=== PATIENT | male | born 1945 | race Caucasian/White ===

== ENCOUNTER 2019-02-08 18:47 | Inpatient (IN) | payer MEDICARE, OTHER ==
--- NOTE | 2019-02-08 19:36 | ED ---
GI/ HPI - HPI Summary HPI Summary: Pt is a 73 y/o M presenting to the ED with a chief complaint of black stools. He states he has occasional phlebitis in his L leg, so he frequently wears TEDS. A few weeks ago he was shivering/shaking, and the next day his L leg was edematous and painful. He sometimes takes Aleve to help the pain, but he is also on Eliquis, and thinks they may have interacted and caused these black stools. He states his stools are pure black. He denies pain or taking any Pepto Bismol or Iron supplements. - History of Current Complaint Chief Complaint: EDGIBleed Time Seen by Provider: 02/08/19 19:11 Stated Complaint: GI BLEED PER EMS Hx Obtained From: Patient Onset/Duration: Started Days Ago, Still Present Timing: Constant, Lasting Days Severity: Mild Current Severity: Mild Pain Intensity: 3 Location of Pain: Diffuse Associated Signs and Symptoms: Positive: Black Tarry Stool, Melena - edema & pain in L leg, shaking/shivering Aggravating Factor(s): Nothing Alleviating Factor(s): Nothing - Allergy/Home Medications Allergies/Adverse Reactions: Allergies Allergy/AdvReac Type Severity Reaction Status Date / Time Latex, Natural Rubber Allergy Rash Verified 02/08/19 19:00 ANTIBIOTIC, POSSIBLY Allergy Diarrhea Uncoded 02/08/19 19:00 CEPHALEXIN Home Medications: Home Medications Apixaban* [Eliquis*] 5 mg PO BID 02/08/19 [History Confirmed 02/08/19] Benazepril HCl 80 mg PO DAILY 02/08/19 [History Confirmed 02/08/19] Furosemide TAB* [Lasix TAB*] 80 mg PO QAM 02/08/19 [History Confirmed 02/08/19] Ibuprofen TAB* [Motrin TAB* 400 MG] 400 mg PO Q6H PRN 02/08/19 [History Confirmed 02/08/19] Multivitamins/Minerals TAB* [Theragran/minerals TAB*] 1 tab PO DAILY 02/08/19 [ History Confirmed 02/08/19] Triamcinolone 0.1% CREAM(NF) [Kenalog Cream 0.1%(NF)] 1 applic TOPICAL BID 02/08 [History Confirmed 02/08/19] PMH/Surg Hx/FS Hx/Imm Hx Previously Healthy: Yes Endocrine/Hematology History: Reports: Hx Thyroid Disease Denies: Hx Diabetes Cardiovascular History: Reports: Hx Hypertension Respiratory History: Denies: Hx Asthma, Hx Chronic Obstructive Pulmonary Disease (COPD) GI History: Denies: Hx Ulcer - Surgical History Surgery Procedure, Year, and Place: RLE VEIN SURGERY 2013, bilat vascular leg surgery, RIGHT HIP - GAMMA NAIL Infectious Disease History: No Infectious Disease History: Denies: Hx Clostridium Difficile, Hx Hepatitis, Hx Human Immunodeficiency Virus (HIV), Hx of Known/Suspected MRSA, Hx Shingles, Hx Tuberculosis, Traveled Outside the [place] in Last 30 Days - Family History Known Family History: Negative: Diabetes - Social History Alcohol Use: None Hx Substance Use: No Substance Use Type: Reports: None Hx Tobacco Use: Yes Smoking Status (MU): Former Smoker Review of Systems Positive: Other - shaking/shivering Positive: Other - black stool Positive: Myalgia, Edema All Other Systems Reviewed And Are Negative: Yes Physical Exam - Summary Physical Exam Summary: Constitutional: Well-developed, Well-nourished, Alert. (-) Distressed Skin: Warm, Dry HENT: Normocephalic; Atraumatic Eyes: Conjunctiva normal Neck: Musculoskeletal ROM normal neck. (-) JVD, (-) Stridor, (-) Tracheal deviation Cardio: Rhythm regular, rate normal, Heart sounds normal; Intact distal pulses; Radial pulses are 2+ and symmetric. (-) Murmur Pulmonary/Chest wall: Effort normal. (-) Respiratory distress, (-) Wheezes, (-) Rales Abd: Soft, (-) tenderness, (-) Distension, (-) Guarding, (-) Rebound Musculoskeletal: (-) Edema Lymph: (-) Cervical adenopathy Neuro: Alert, Oriented x3 Psych: Mood and affect Normal Rectal: Hematochezia Triage Information Reviewed: Yes Vital Signs On Initial Exam: Initial Vitals Temp Pulse Resp BP Pulse Ox 98.3 F 100 24 118/78 100 02/08/19 18:55 02/08/19 18:55 02/08/19 18:55 02/08/19 18:55 02/08/19 18:55 Vital Signs Reviewed: Yes Procedures - Sedation Patient Received Moderate/Deep Sedation with Procedure: No Diagnostics - Vital Signs Vital Signs Temp Pulse Resp BP Pulse Ox 02/08/19 19:00 92 30 99 02/08/19 18:56 94 26 118/78 100 02/08/19 18:55 98.3 F 100 20 118/78 100 - Laboratory Result Diagrams: 02/08/19 19:26 02/08/19 19:26 Lab Statement: Any lab studies that have been ordered have been reviewed, and results considered in the medical decision making process. - EKG 1930 Cardiac Rate: Other Rate - afib 98bpm EKG Rhythm: Atrial Fibrillation ST Segment: Normal Ectopy: None Summary of EKG Findings: EKG at 1930 shows atrial fibrillation at 98bpm with RBBB and no STEMI. ED physician has reviewed and interpreted this report. GIGU Course/Dx - Course Course Of Treatment: Patient is here with GI bleed while being on eliquist. Patient has been taking ibuprofen which could predispose him to peptic ulcer disease. Patient had bright red blood per rectum on exam but was clinically stable here. Patient had a hemoglobin of 5.7 and was given 2 units of blood. Patient was given PCC to reverse his eliquist. GI was counseled that here in the recommended ICU admission with scoping in the morning. Patient was admitted to the hospitalist. - Diagnoses Provider Diagnoses: GI bleed, Anticoagulated, Anemia, CHF (congestive heart failure) - Critical Care Time Critical Care Time: 30-74 min - 60min Discharge ED - Sign-Out/Discharge Documenting (check all that apply): Patient Departure - Discharge Plan Condition: Stable Disposition: ADMITTED TO [facility] Referrals: Dequan Kerr MD [Primary Care Provider] - - Billing Disposition and Condition Condition: STABLE Disposition: Admitted to [facility] - Attestation Statements Document Initiated by Charan: Yes Documenting Scribe: Carla Huynh Provider For Whom Charan is Documenting (Include Credential): Yomi Stovall MD. Scribe Attestation: Carla Locke scribed for Yomi Stovall MD. on 02/08/19 at 2051. Scribe Documentation Reviewed: Yes Provider Attestation: The documentation as recorded by the Carla van accurately reflects the service I personally performed and the decisions made by , Yomi Stovall MD. Status of Scribe Document: Viewed Consult Consult: 1947 - I spoke with Dr. Duff who recommends giving the pt 2 units of PCC and admitting to the ICU. 2016 - Dr. Gaspar accepts the pt to [facility].
[2019-02-08] MEDS ORDERED: Pantoprazole* 80 mg IN NS 80 MG/250 ML BAG IV ONE (19:41)
[2019-02-08 19:45] LABS: INR 1.61 (0.82-1.09)
[2019-02-08 19:45] LABS: ABS Lymphocytes 0.8 10^3/ul (1.0-4.8); ABS Monocytes 0.8 10^3/ul (0-0.8); ABS Neutrophils 12.3 10^3/ul (1.5-7.7); Eosinophil % 0.1 %; Hematocrit 17 % (42-52); Hemoglobin 5.7 g/dL (14.0-18.0); Lymphocyte % 5.4 %; Mean Corpuscular HGB Conc 33 g/dL (31-36); Mean Corpuscular Hemoglobin 30 pg (27-31); Mean Corpuscular Volume 89 fL (80-94); Mean Platelet Volume 6.5 fL (7.4-10.4); Platelet Count 311 10^3/uL (150-450); Red Blood Count 1.91 10^6 /uL (4.18-5.48); Red Cell Distribution Width 14 % (10-15); White Blood Count 13.9 10^3/uL (3.5-10.8)
[2019-02-08 19:57] LABS: Troponin I 0.03 ng/mL (<0.04)
[2019-02-08 20:05] LABS: Albumin 2.6 g/dL (3.2-5.2); EGFR African American 114.3 (>60); EGFR Non-African American 94.5 (>60); Globulin 2.5 g/dL (2-4); Total Bilirubin 0.3 mg/dL (0.2-1.0); Total Protein 5.1 g/dL (6.4-8.9)
[2019-02-08 20:06] LABS: Potassium 5.6 mmol/L (3.5-5.0)
[2019-02-08 20:15] LABS: Polychromasia 1+
[2019-02-08] MEDS ORDERED: Pantoprazole IV* 40 MG IV ONE (20:21)
[2019-02-09] MEDS: NS 0.9% 1000 ML** 1,000 ML IV SCH ×2 (00:20→15:07)
--- NOTE | 2019-02-09 01:19 | HP ---
CC: Dr. Yahir Duff; Dr. Dequan Kerr * ADMISSION HISTORY AND PHYSICAL: DATE OF ADMISSION: 02/08/19 CHIEF COMPLAINT: Dark stools. 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 He stated that he had 1 episode of vomiting today, but just had the food, but no blood. He did have a diagnosis of thrombophlebitis about 3 weeks ago and has been having increased doses of Aleve and ibuprofen as needed along with the Eliquis that he takes for his AFib. He, otherwise offers no chest pain, no shortness of breath, no vision disturbances, no fever or chills. Other than the 1 episode of vomiting, he currently denies any nausea. PAST MEDICAL HISTORY: As mentioned: 1. Hypothyroidism. 2. Hypertension. 3. AFib, on Eliquis. 4. Congestive heart failure, which he states has normal ejection fraction based on a recent echocardiogram. He also stated that he had a cardiac workup including a stress test, which was done within the last month, which was also normal. He was told that all 4 heart valves are bad and needs surgery, but he refused any surgical intervention. PAST SURGICAL HISTORY: Includes: 1. Right hip gamma nail, which subsequently had broken and there is plan to do some surgical correction. 2. He has got multiple vascular surgeries for venous insufficiency, but still has lower extremity edema for which he uses compression stockings. He has never had a colonoscopy as he states that he never had any family history of colon cancer, but he is okay with having a colonoscopy during this admission. HOME MEDICATIONS: The patient is currently on: 1. Amlodipine 5 mg oral daily. 2. Eliquis 5 mg p.o. b.i.d. 3. Benazepril 80 mg oral daily. 4. Furosemide 80 mg every morning. 5. Ibuprofen 400 mg every 6 hours as needed for pain. 6. Synthroid 50 mcg daily every morning. 7. Multivitamin 1 tablet oral daily every morning. 8. Potassium chloride 40 mEq twice a day. 9. Kenalog cream topical daily to the left leg. 10. Triamterene/hydrochlorothiazide 37.5/25 mg oral daily. ALLERGIES: The patient is allergic to LATEX and CEPHALEXIN. FAMILY HISTORY: Noncontributory to his age. SOCIAL HISTORY: He quit smoking in 1993. Prior to that, had 4 pack per day smoking since age 17. Denies any alcohol or drug use. Is currently living with his . Is otherwise full code. REVIEW OF SYSTEMS: A 14-point review of systems did not reveal any new information other than what is mentioned in the HPI. PHYSICAL EXAMINATION GENERAL: The patient is awake, alert, and oriented x3, did not appear to be in any acute respiratory distress. VITAL SIGNS: Temperature was 98.6, BP was noted to be low as documented of 95/ 52 which improved with IV hydration, heart rate was noted to be 71, respiration rate 20, saturating 100% on room air. HEAD AND NECK: Atraumatic, normocephalic. Bilateral pupils are reactive. There is some evidence of early cataracts. Oral mucosa was dry. Neck: Supple. No jugular venous distention. LUNGS: Clear to auscultation bilaterally. No wheezing, rhonchi, or rales. HEART: S1, S2. Regular rate and rhythm with systolic murmur. ABDOMEN: Obese, soft, nontender, nondistended. EXTREMITIES: There is bilateral lower extremity edema for which he uses compression stockings, but still has persistent edema even about the thigh which was 3+ up to his thigh. DIAGNOSTIC STUDIES/LAB DATA: Labs: CBC shows severe anemia with hemoglobin of 5.7, elevated white count of 13.9, platelet was normal. Coagulation profile revealed INR elevated at 1.61. Comprehensive metabolic panel shows hyponatremia with sodium of 127, potassium minimally elevated at 5.6, bicarb decreased at 20, BUN elevated at 72, creatinine normal at 0.8. LFTs show albumin decreased at 2.6. EKG showed AFib at 98 beats per minute with intraventricular conduction delay with right bundle-branch block. There is no old EKG to compare. IMPRESSION: This is a 73-year-old gentleman with hypertension; atrial fibrillation, on Eliquis and thrombophlebitis, taking multiple pain medications , here due to symptomatic anemia, likely secondary to GI bleed. ASSESSMENT AND PLAN: 1. Symptomatic anemia secondary to GI bleed due to use of both Eliquis on top of NSAIDs. For now, we will monitor the patient closely in the ICU. The patient is already ordered for 2 units in the ER and GI has been consulted by the ER physician who agrees with current management including addition of Protonix drip. We will change it to Protonix IV b.i.d. in the morning. We will keep the patient n.p.o. for possible EGD versus colonoscopy in the morning based on GI recommendations. 2. Hyponatremia. Seems to be a severe drop. The patient already had received multiple bouts of IV fluids in the ER given his history of congestive heart failure. We will lower the rate of IV fluids administration and repeat BMP and CBC posttransfusion to check improvement over his values. His last BMP was performed as an outpatient yesterday, which showed a sodium of 138. 3. Prerenal azotemia secondary to GI bleed, likely upper. 4. Hyperkalemia. Likely due to oral potassium supplementation. We will repeat BMP and check on that. 5. History of hypertension. Currently, normotensive to low normal blood pressure. We will hold all BP medications. 6. History of atrial fibrillation. We will hold his Eliquis due to his GI bleed. 7. History of congestive heart failure. Currently, just has lower extremity edema, which could be from venous insufficiency that he does have. No abnormal lung sounds suggestive of congestive heart failure. 8. History of hypothyroidism. Restart levothyroxine. 9. DVT prophylaxis. The patient was receiving Eliquis, but we will hold off any Lovenox at this point due to his GI bleeding and SCDs would be contraindicated given his severe lower extremity edema. Once GI bleed has resolved, we can consider starting the patient back on his home dose of Eliquis , which would cover for his DVT prophylaxis as well. 10. Code status. The patient agrees with full code status. [id number]/[facility] #: [id number] [facility]
[2019-02-09] MEDS: Triamcinolone 0.5% OINT * 15 GM TUBE TOPICAL SCH ×3 (04:56→20:39)
[2019-02-09 05:16] LABS: ABS Basophils 0.1 10^3/ul (0-0.2); ABS Eosinophils 0.1 10^3/ul (0-0.6); ABS Lymphocytes 1.2 10^3/ul (1.0-4.8); Eosinophil % 1.3 %; Hematocrit 18 % (42-52); Hemoglobin 6.3 g/dL (14.0-18.0); Lymphocyte % 10.9 %; Mean Corpuscular HGB Conc 34 g/dL (31-36); Mean Corpuscular Hemoglobin 30 pg (27-31); Mean Corpuscular Volume 88 fL (80-94); Mean Platelet Volume 6.8 fL (7.4-10.4); Platelet Count 236 10^3/uL (150-450); Red Blood Count 2.08 10^6 /uL (4.18-5.48); Red Cell Distribution Width 14 % (10-15); White Blood Count 11.4 10^3/uL (3.5-10.8)
[2019-02-09 05:29] LABS: BUN/Creatinine Ratio 85.1 (8-20); Calcium 8.1 mg/dL (8.6-10.3); EGFR African American 103.8 (>60); EGFR Non-African American 85.8 (>60)
[2019-02-09] MEDS ORDERED: Furosemide IV* 10 MG/ML VIAL (40 MG) IV SLOW PU ONE (05:48)
[2019-02-09] MEDS: Levothyroxine TAB* 50 MCG TAB PO SCH (06:21)
[2019-02-09] MEDS: Pantoprazole IV* 40 MG IV SCH ×2 (06:21→18:02)
[2019-02-09] MEDS: Multivitamins/Minerals TAB PO SCH ×2 (08:27→08:28)
[2019-02-09 11:29] LABS: Hematocrit 22 % (42-52); Hemoglobin 7.4 g/dL (14.0-18.0); Mean Corpuscular HGB Conc 34 g/dL (31-36); Mean Corpuscular Hemoglobin 30 pg (27-31); Mean Corpuscular Volume 88 fL (80-94); Mean Platelet Volume 6.9 fL (7.4-10.4); Platelet Count 241 10^3/uL (150-450); Red Blood Count 2.46 10^6 /uL (4.18-5.48); Red Cell Distribution Width 15 % (10-15); White Blood Count 10.8 10^3/uL (3.5-10.8)
[2019-02-09 11:45] LABS: BUN/Creatinine Ratio 77.8 (8-20); Calcium 8.3 mg/dL (8.6-10.3); EGFR African American 99.8 (>60); EGFR Non-African American 82.5 (>60); Magnesium 2.3 mg/dL (1.9-2.7); Potassium 4.7 mmol/L (3.5-5.0)
[2019-02-09 11:56] LABS: ABS Eosinophils 0.1 10^3/ul (0-0.6); ABS Lymphocytes 0.9 10^3/ul (1.0-4.8); ABS Monocytes 0.9 10^3/ul (0-0.8); ABS Neutrophils 8.8 10^3/ul (1.5-7.7); Eosinophil % 1.2 %; Lymphocyte % 8.3 %
--- NOTE | 2019-02-09 15:59 | PN ---
Subjective Date of Service: 02/09/19 Interval History: Admitted overnight. s/p 3 u pRBC with Hgb now 7.4. Patient reports weakness has resolved. No longer with melena. Denies SOB or feeling cold. States his LE edema is near baseline, with LLE worse than right since recent infection, which did not respond to outpatient antibiotics. Denies PND, orthopnea. Denies fevers, chills, nightsweats. Objective Active Medications: Sodium Chloride (Ns 0.9% 1000 Ml) 1,000 mls @ 75 mls/hr IV PER RATE [facility] Last Admin: 02/09/19 15:07 Dose: 75 mls/hr Levothyroxine Sodium (Synthroid Tab*) 50 mcg PO 0600 [facility] Last Admin: 02/09/19 06:21 Dose: 50 mcg Multivitamins/Minerals (Theragran/Minerals Tab*) 1 tab PO DAILY [facility] Last Admin: 02/09/19 08:28 Dose: Not Given Pantoprazole Sodium (Protonix Iv*) 40 mg IV Q12H [facility] Last Admin: 02/09/19 06:21 Dose: 40 mg Triamcinolone Acetonide (Triamcinolone 0.5% Oint *) 1 applic TOPICAL BID [facility] Last Admin: 02/09/19 08:27 Dose: 1 applic Vital Signs - 8 hr 02/09/19 02/09/19 02/09/19 08:00 08:04 08:05 Temperature 98.2 F Pulse Rate 83 80 Respiratory 19 29 Rate Blood Pressure (mmHg) O2 Sat by Pulse 100 85 Oximetry 02/09/19 02/09/19 02/09/19 08:06 08:15 08:22 Temperature Pulse Rate 79 80 76 Respiratory 23 23 21 Rate Blood Pressure 106/47 96/60 112/50 (mmHg) O2 Sat by Pulse 100 97 100 Oximetry 02/09/19 02/09/19 02/09/19 08:30 08:45 09:00 Temperature Pulse Rate 78 72 83 Respiratory 17 16 23 Rate Blood Pressure 116/50 92/56 (mmHg) O2 Sat by Pulse 88 96 90 Oximetry 02/09/19 02/09/19 02/09/19 09:01 09:16 09:30 Temperature Pulse Rate 69 Respiratory 18 22 16 Rate Blood Pressure 104/61 131/64 104/59 (mmHg) O2 Sat by Pulse 97 Oximetry 02/09/19 02/09/19 02/09/19 09:45 10:00 10:15 Temperature Pulse Rate 71 80 66 Respiratory 17 22 14 Rate Blood Pressure 109/62 109/57 107/56 (mmHg) O2 Sat by Pulse 96 100 100 Oximetry 02/09/19 02/09/19 02/09/19 10:30 10:45 10:59 Temperature Pulse Rate 68 72 76 Respiratory 21 22 17 Rate Blood Pressure 105/52 105/58 97/50 (mmHg) O2 Sat by Pulse 98 96 100 Oximetry 02/09/19 02/09/19 02/09/19 11:00 11:09 11:15 Temperature 98.1 F Pulse Rate 68 70 Respiratory 20 23 Rate Blood Pressure 97/64 107/57 (mmHg) O2 Sat by Pulse 95 100 Oximetry 02/09/19 02/09/19 02/09/19 11:30 11:45 12:00 Temperature Pulse Rate 68 63 64 Respiratory 19 16 16 Rate Blood Pressure 103/57 99/51 126/59 (mmHg) O2 Sat by Pulse 98 99 94 Oximetry 02/09/19 02/09/19 02/09/19 12:16 12:30 12:45 Temperature Pulse Rate 66 64 64 Respiratory 20 17 14 Rate Blood Pressure 134/56 91/54 93/49 (mmHg) O2 Sat by Pulse 100 99 93 Oximetry 02/09/19 15:12 Temperature 99.2 F Pulse Rate Respiratory Rate Blood Pressure (mmHg) O2 Sat by Pulse Oximetry Oxygen Devices in Use Now: None Appearance: wel appearing pale man in NAD, alert and interactive Eyes: No Scleral Icterus Ears/Nose/Mouth/Throat: Clear Oropharnyx, Mucous Membranes Moist Neck: NL Appearance and Movements; NL JVP, Trachea Midline Respiratory: Symmetrical Chest Expansion and Respiratory Effort, Clear to Auscultation Cardiovascular: - - irreg irreg Abdominal: NL Sounds; No Tenderness; No Distention Extremities: - - 3+ pitting edema over LLE and 2+ over RLE, LLE with tender erythema but no skin breakdown or oozing Result Diagrams: 02/09/19 11:10 02/09/19 11:10 Microbiology and Other Data: Microbiology 02/09/19 00:25 Nasal Screen MRSA (PCR) - Final Nasal Mrsa Not Detected 02/08/19 20:30 Stool Occult Blood (MANGO) - Final Stool Assess/Plan/Problems-Billing Assessment: 73M with afib on Eliquis, HFpEF, HTN, hypothyroidism, obesity, presents with 2 days of black stools associated with decrease UOP and lightheadedness, found with severe anemia requiring blood transfusion. - Patient Problems (1) GI bleed due to NSAIDs Comment: Likely UGIB. Taking daily naproxen while on apixaban. Melena for 2 days with hypovolemia. Hgb 5.7 -> 7.4 after 3 u pRBC. Received PCC in the ER. - holding apixaban - NO NSAIDS - appreciate GI input - going for EGD - on pantoprazole IV q12h (2) Atrial fibrillation Comment: - holding AC in setting of bleed, will defer to GI for ability to restart - not on rate/rhythm control (3) Cellulitis Comment: h/o recent outpatient treatment for thrombophlebitis without improvement, now with erythematous tender skin. No open wounds. No MRSA risk factors but recently failed oral treatment with meds not covering for community- MRSA. - will start on IV clindamycin 600mg q 8h (4) Heart failure with preserved ejection fraction Comment: per patient. - will restart furosemide if without further bleeding, as he received significant volume from blood transfusion and is markedly overloaded on exam, is currently denying SOB/orthopnea (5) Hypertension Comment: - holding HCTZ, amlodipine, and benazepril in setting of bleed
[2019-02-09] MEDS ORDERED: fentaNYL* 50 MCG/ML 2 ML VIAL (100 MCG VIAL) ONE (16:06)
[2019-02-09] MEDS ORDERED: Midazolam* 1 MG/ML 10 ML VIAL (10 MG) ONE (16:06)
[2019-02-09 16:49] LABS: C Reactive Protein 13.42 mg/L (<8.01)
[2019-02-09] MEDS ORDERED: PEG 3000 GI LAVAGE* 1 GALLON PO ONE (17:18)
[2019-02-09] MEDS: Clindamycin 600 MG/D5W BAG(*) 600 MG/50 ML BAG IV SCH (18:02)
[2019-02-09 18:37] LABS: Hematocrit 21 % (42-52); Hemoglobin 7.1 g/dL (14.0-18.0); Mean Corpuscular HGB Conc 35 g/dL (31-36); Mean Corpuscular Hemoglobin 31 pg (27-31); Mean Corpuscular Volume 88 fL (80-94); Mean Platelet Volume 6.8 fL (7.4-10.4); Platelet Count 227 10^3/uL (150-450); Red Blood Count 2.32 10^6 /uL (4.18-5.48); Red Cell Distribution Width 15 % (10-15); White Blood Count 8.9 10^3/uL (3.5-10.8)
[2019-02-09] MEDS: Acetaminophen TAB* 325 MG PO PRN (22:11)
--- NOTE | 2019-02-09 22:20 | CONS ---
CC: Wen Arauz MD * GASTROENTEROLOGY CONSULT REPORT: DATE OF CONSULT: 02/09/19 REQUESTING PROVIDER: Wen Arauz MD. REASON FOR CONSULT: Melena and anemia. HISTORY OF PRESENT ILLNESS: Mr. Curran is a 73-year-old gentleman with a history of AFib on Eliquis, heart failure with normal ejection fraction, hypertension, hypothyroidism, and lymphedema, who is admitted with significant anemia and melena. Mr. Curran was in usual state of health until a few weeks ago when he was diagnosed with thrombophlebitis. He has been using Aleve 1 pill twice a day since this time for pain management. This is in addition to his typical Eliquis. He had multiple episodes of black semiformed stools on Thursday. He says there was some dark red blood seen mixed in with the stool as well. No bowel movements since Thursday evening. Reported some nausea and 1 episode of vomiting on Thursday. There was no coffee- ground or blood in the emesis. Denies any significant abdominal pain. Admitted with hematocrit of 17 and hemoglobin of 5.7. Since admission, the patient has received 3 units of blood with an increase in his hemoglobin to 7.4. No bowel movements since admission. The patient denies any specific symptoms at the time of interview. The patient has never had a colonoscopy before. No family history of colon cancer or colon polyps. PAST MEDICAL HISTORY: 1. AFib, on Eliquis. 2. Hypertension. 3. Hypothyroidism. 4. Congestive heart failure with normal ejection fraction. 5. Lymphedema. PAST SURGICAL HISTORY: 1. Right hip surgery. 2. Multiple vascular surgeries for venous insufficiency. HOME MEDICATIONS: 1. Amlodipine 5 mg daily. 2. Eliquis 5 mg twice daily. 3. Benazepril 80 mg daily. 4. Furosemide 80 mg every morning. 5. Ibuprofen as needed. 6. Synthroid 50 mcg daily. 7. Multivitamin daily. 8. Potassium chloride 40 mEq twice daily. 9. Kenalog cream daily. 10. Triamterene/hydrochlorothiazide 37.5/25 daily. ALLERGIES: KEFLEX. FAMILY HISTORY: No known GI or liver disease. SOCIAL HISTORY: Former smoker. No alcohol or drug use. Lives with his . REVIEW OF SYSTEMS: A 12 point review of systems is negative except as mentioned above. PHYSICAL EXAM: Vital Signs: Afebrile, heart rate in the 70s, blood pressure 113/55. General: Pleasant appearing elderly gentleman. No acute distress. HEENT: Mucous membranes moist. Cardiovascular: Irregularly irregular rhythm. Lungs: Clear to auscultation. Breathing comfortably. Abdomen: Obese. Soft, nontender, nondistended. Extremities: Bilateral lower extremity edema, which is fairly significant. DIAGNOSTIC STUDIES/LAB DATA: Labs reviewed. White count 13.9 on admission, now down to 8.9. hemoglobin 5.7 on admission, now 7.1. hematocrit 17 on admission and now 21. platelet count normal. MCV 89. INR 1.61 on admission. Sodium 127, now 131. BUN 72 with a creatinine of 0.8. LFTs normal. Albumin 2.6. CRP is 13.42. Imaging: No available imaging. IMPRESSION AND RECOMMENDATION: Mr. Curran is a 73-year-old gentleman with atrial fibrillation on Eliquis, heart failure with preserved ejection fraction, hypothyroidism, hypertension, and recent daily NSAID use, who presents with acute anemia and black and bloody stools several days ago. The patient is hemodynamically stable. Anemia is quite impressive, although reassuringly he has not had continued drop in the hematocrit during monitoring. No further overt bleeding (or bowel movements) since admission. Presentation most suggestive of an upper GI bleed given the description of melena as well as the elevated BUN. Differential for sources of bleeding is broad, particularly in the setting of anticoagulation. However, PUD is higher on differential given NSAID use. Small intestines and lower GI source can also be considered given some red blood seen in the stool. Patient has not had colonoscopy before, which raises possibility of large polyp or mass. - IV PPI drip. - Continue to monitor CBC every 6-8 hours. Transfuse to maintain hemoglobin above 7. - NPO. We will plan for EGD today. - Continue to hold Eliquis. - Avoid NSAIDs. Thank you very much for this consult. GI will continue to follow along. [id number]/[facility] #: [id number] [facility]
--- NOTE | 2019-02-09 22:47 | PRO ---
CC: Dr. Wen Arauz * DATE OF PROCEDURE: 02/09/19 - ROOM #ICU-04 REFERRING PROVIDER: Wen Arauz MD. PROCEDURE: EGD with biopsy. INDICATION: The patient presented to the ED with acute anemia and melena and bloody stools. Hemoglobin was less than 6 on arrival. The hemoglobin now is 7.4 after 3 units. No melena or rectal bleeding since arrival. Hemodynamically stable. MEDICATIONS GIVEN: Midazolam 7 mg IV, Fentanyl 50 mcg IV. DESCRIPTION OF PROCEDURE: Full disclosure of risks was reviewed with the patient as detailed on the consent form. The patient was placed in the left lateral decubitus position and monitored with continuous pulse oximetry, capnography, interval blood pressure monitoring, and direct observation. A bite -block was placed between the patient's teeth. An adult gastroscope was then inserted into the patient's mouth and advanced down the esophagus, into the stomach, and into the distal duodenum. Findings and interventions are described below. FINDINGS: Esophagus was a tubular structure without rings or strictures. GE junction occurred at approximately 37 cm. Z-line was mildly irregular with small erosion. No severe esophagitis. No varices. Scope was then advanced into the stomach. Stomach was examined in the forward and retroflexed views. There was yellowish fluid in the stomach. No fresh or old blood. Extensive cleaning and washing performed. Adequate views of the mucosa were obtained. No significant erythema, erosions or ulcers. No AVMs. No bleeding source identified in the stomach. The scope was then advanced into the duodenum to at least the third, if not fourth, portion. There was nodular erythema in the duodenal bulb with a tiny erosion. Tanner bilious fluid. No fresh or old blood. No AVMs. Scope was then withdrawn back into the esophagus. Small biopsy bite obtained from irregular Z-line to evaluate for evidence of intestinal metaplasia. This biopsy site bled briskly for a few seconds before stopping spontaneously. The decision was made to hold off on biopsying more extensively. Scope was withdrawn from the patient. The patient tolerated the procedure well and was recovered in the GI recovery area. IMPRESSION: 1. Complete upper endoscopy to distal duodenum. 2. Mildly irregular Z-line. 3. Mild esophagitis with a small erosion at the GE junction. 4. Nodular erythema in the duodenal bulb with a tiny erosion. FOLLOWUP: 1. Await path. 2. I do not feel that the tiny erosions in the esophagus and duodenum are the source of the patient's significant anemia and GI bleed. There is no fresh or old blood. No likely bleeding source identified. At this point, I would recommend prepping the patient for a colonoscopy. Would give clears and GoLYTELY 4 L prep. NPO after midnight. Colonoscopy tomorrow. 2. Continue to monitor CBC every 6 to 8 hours. 3. Continue to hold Eliquis. 4. Would continue IV PPI at least once a day, if not twice daily, given the fact that there were two small erosions seen on exam. Thank you very much for this consult. GI will continue to follow. [id number]/[facility] #: [id number] KRYSTINA
[2019-02-09 22:56] LABS: Hematocrit 22 % (42-52); Hemoglobin 7.5 g/dL (14.0-18.0)
[2019-02-10] MEDS: Clindamycin 600 MG/D5W BAG(*) 600 MG/50 ML BAG IV SCH ×3 (00:01→17:11)
[2019-02-10] MEDS: NS 0.9% 1000 ML** 1,000 ML IV SCH ×2 (02:00→17:12)
[2019-02-10] MEDS: Levothyroxine TAB* 50 MCG TAB PO SCH (05:53)
[2019-02-10] MEDS: Pantoprazole IV* 40 MG IV SCH ×2 (05:54→17:11)
[2019-02-10] MEDS ORDERED: NS 0.9% IV ONE (06:00)
[2019-02-10] MEDS ORDERED: Furosemide IV* 10 MG/ML 10 ML VIAL (100 MG) IV ONE (06:00)
[2019-02-10] MEDS ORDERED: FUROSEMIDE IV ONE (06:00)
[2019-02-10] MEDS: Acetaminophen TAB* 325 MG PO PRN ×2 (06:26→17:40)
[2019-02-10 06:37] LABS: Calcium 8.1 mg/dL (8.6-10.3); EGFR African American 114.3 (>60); EGFR Non-African American 94.5 (>60); Magnesium 2.3 mg/dL (1.9-2.7)
[2019-02-10 06:38] LABS: Hematocrit 19 % (42-52); Hemoglobin 6.8 g/dL (14.0-18.0); Mean Corpuscular HGB Conc 35 g/dL (31-36); Mean Corpuscular Hemoglobin 31 pg (27-31); Mean Corpuscular Volume 88 fL (80-94); Mean Platelet Volume 6.8 fL (7.4-10.4); Platelet Count 220 10^3/uL (150-450); Red Blood Count 2.19 10^6 /uL (4.18-5.48); Red Cell Distribution Width 14 % (10-15); White Blood Count 7.6 10^3/uL (3.5-10.8)
--- NOTE | 2019-02-10 07:27 | PN ---
Subjective Date of Service: 02/10/19 Interval History: Started bowel prep last night, for C-scope planned today. Had copious "burgundy " liquid stools overnight. Hgb 6.8 this morning. Holding off on diuresis in setting of bleed, and as pt has no respiratory symptoms (so urgency is low), but will monitor volume status closely given significant LE edema and need for another transfusion. Pt reports significant improvement in LLE pain and redness. Denies SOB, chills, fatigue. Hasn't tried walking. Objective Active Medications: Acetaminophen (Tylenol Tab*) 650 mg PO Q4H PRN PRN Reason: PAIN - MILD Last Admin: 02/10/19 06:26 Dose: 650 mg Clindamycin HCl/Dextrose (Cleocin 600 Mg/50 Ml(*)) 600 mg in 50 mls @ 100 mls/ hr IV Q8H [facility] Last Admin: 02/10/19 00:01 Dose: 100 mls/hr Sodium Chloride (Ns 0.9% 1000 Ml) 1,000 mls @ 75 mls/hr IV PER RATE [facility] Last Admin: 02/10/19 02:00 Dose: 75 mls/hr Lactobacillus Rhamnosus (Lactobacillus Acidophilus*) 1 tab PO DAILY [facility] Levothyroxine Sodium (Synthroid Tab*) 50 mcg PO 0600 [facility] Last Admin: 02/10/19 05:53 Dose: 50 mcg Multivitamins/Minerals (Theragran/Minerals Tab*) 1 tab PO DAILY [facility] Last Admin: 02/09/19 08:28 Dose: Not Given Pantoprazole Sodium (Protonix Iv*) 40 mg IV Q12H [facility] Last Admin: 02/10/19 05:54 Dose: 40 mg Triamcinolone Acetonide (Triamcinolone 0.5% Oint *) 1 applic TOPICAL BID [facility] Last Admin: 02/09/19 20:39 Dose: 1 applic Vital Signs - 8 hr 02/09/19 02/09/19 02/09/19 23:31 23:41 23:43 Temperature 98.3 F Pulse Rate 81 Respiratory 25 25 Rate Blood Pressure 118/74 (mmHg) O2 Sat by Pulse 78 Oximetry 02/10/19 02/10/19 02/10/19 00:00 00:14 00:30 Temperature Pulse Rate 77 68 69 Respiratory 18 14 21 Rate Blood Pressure 103/56 108/56 (mmHg) O2 Sat by Pulse 98 97 100 Oximetry 02/10/19 02/10/19 02/10/19 01:00 01:30 01:52 Temperature Pulse Rate 73 62 67 Respiratory 19 14 12 Rate Blood Pressure 93/52 93/45 88/44 (mmHg) O2 Sat by Pulse 100 100 100 Oximetry 02/10/19 02/10/19 02/10/19 01:53 02:00 02:30 Temperature Pulse Rate 65 63 Respiratory 14 15 16 Rate Blood Pressure 100/42 96/45 (mmHg) O2 Sat by Pulse 100 100 Oximetry 02/10/19 02/10/19 02/10/19 03:00 03:18 03:30 Temperature 97.2 F Pulse Rate 61 63 Respiratory 14 14 Rate Blood Pressure 86/43 88/45 (mmHg) O2 Sat by Pulse 95 96 Oximetry 02/10/19 02/10/19 02/10/19 04:00 04:15 04:30 Temperature Pulse Rate 58 56 Respiratory 15 18 14 Rate Blood Pressure 102/46 85/44 (mmHg) O2 Sat by Pulse 100 97 Oximetry 02/10/19 02/10/19 02/10/19 05:00 05:30 06:00 Temperature Pulse Rate 65 63 69 Respiratory 15 17 18 Rate Blood Pressure 110/54 112/50 101/57 (mmHg) O2 Sat by Pulse 100 98 100 Oximetry 02/10/19 02/10/19 06:30 07:00 Temperature Pulse Rate 69 63 Respiratory 20 16 Rate Blood Pressure 108/52 100/48 (mmHg) O2 Sat by Pulse 97 100 Oximetry Oxygen Devices in Use Now: None Appearance: well appearing man in NAD, alert and interactive Eyes: No Scleral Icterus Ears/Nose/Mouth/Throat: Clear Oropharnyx, Mucous Membranes Moist Neck: NL Appearance and Movements; NL JVP, Trachea Midline Respiratory: Symmetrical Chest Expansion and Respiratory Effort, Clear to Auscultation Cardiovascular: - - irreg irreg Abdominal: NL Sounds; No Tenderness; No Distention, No Hepatosplenomegaly Extremities: - - 3+ edema to knees, LLE with significantly improved erythema - now darker purple, less tender, less hot Neurological: Alert and Oriented x 3 Result Diagrams: 02/10/19 17:30 02/10/19 06:00 Microbiology and Other Data: Microbiology 02/09/19 00:25 Nasal Screen MRSA (PCR) - Final Nasal Mrsa Not Detected 02/08/19 20:30 Stool Occult Blood (MANGO) - Final Stool Assess/Plan/Problems-Billing Assessment: 73M with afib on Eliquis, HFpEF, HTN, hypothyroidism, obesity, presents with 2 days of black stools associated with decrease UOP and lightheadedness, found with severe anemia requiring blood transfusion. - Patient Problems (1) GI bleed due to NSAIDs Comment: Taking daily naproxen while on apixaban. Melena for 2 days with hypovolemia. Hgb 5.7 -> 7.4 after 3 u pRBC. Received PCC in the ER. - holding apixaban; NO NSAIDS - appreciate GI input - EGD without definite cause, going for c-scope today - on pantoprazole IV q12h - monitor CBC and transfuse for Hgb < 7 (2) Atrial fibrillation Comment: CHADSVaSC 3, which indicates 3.2% ischemic stroke rate per year. - holding AC in setting of bleed, will defer to GI for ability to restart - not on rate/rhythm control (3) Cellulitis Comment: h/o recent outpatient treatment for thrombophlebitis without improvement, now with erythematous tender skin. No open wounds. No MRSA risk factors but recently failed oral treatment with meds not covering for community- MRSA. - will start on IV clindamycin 600mg q8h (02/09 - ) (4) Heart failure with preserved ejection fraction Comment: per patient. - will restart furosemide if without further bleeding, as he received significant volume from blood transfusion and is markedly overloaded on exam - currently denying SOB/orthopnea (5) Hypertension Comment: - holding HCTZ, amlodipine, and benazepril in setting of bleed
[2019-02-10] MEDS: Triamcinolone 0.5% OINT * 15 GM TUBE TOPICAL SCH ×2 (08:22→21:54)
[2019-02-10] MEDS: Lactobacillus Acidophilus* 1 TAB PO SCH (08:22)
[2019-02-10] MEDS: Multivitamins/Minerals TAB PO SCH (08:22)
[2019-02-10] MEDS ORDERED: fentaNYL* 50 MCG/ML 2 ML VIAL (100 MCG VIAL) ONE (14:24)
[2019-02-10] MEDS ORDERED: Midazolam* 1 MG/ML 10 ML VIAL (10 MG) ONE (14:25)
--- NOTE | 2019-02-10 15:25 | PN ---
Progress Note - Progress Note Date of Service: 02/10/19 Note: GI Colonoscopy note Colon to TI x 15cm No fresh or old blood. Mod Left Diverticulosis. No polyps, AVMs or lesions Rec: No family history of CRC. No recall for colon needed unless symptoms ? Diverticular bleed, but no clear source identified. Given valvular heart disease could consider outpatient capsule for AVMs (Neftaly), OP follow up/ scheduling Advance diet as tolerated Elevated risk for anticoagulation, but if has high [id number] score would restart, if low would consider withholding. Discussed bleeding could happen again, avoid NSAIDs Yahir Duff DO 02/10/19 [id number]
[2019-02-10 17:43] LABS: Hematocrit 24 % (42-52); Mean Corpuscular HGB Conc 34 g/dL (31-36); Mean Corpuscular Hemoglobin 30 pg (27-31); Mean Corpuscular Volume 88 fL (80-94); Mean Platelet Volume 6.6 fL (7.4-10.4); Platelet Count 255 10^3/uL (150-450); Red Blood Count 2.66 10^6 /uL (4.18-5.48); Red Cell Distribution Width 15 % (10-15); White Blood Count 7.9 10^3/uL (3.5-10.8)
--- NOTE | 2019-02-10 19:45 | PN ---
Hospitalist Progress Note Date of Service: 02/10/19 Discussed with patient the benefit of anticoagulation (stroke prevention with CHADSVASC of 3), vs risk (recent GI bleed). [place] decision made to proceed with anticoagulation, as pt comfortable with risk of bleeding and believes that this was from his use of Aleve, which he will strictly avoid in the future. Decision made to trial AC with Lovenox, which has a shorter half-life than apixaban. If no bleeding for over 24 hours, can DC on oral AC. Pt prefers this plan.
[2019-02-10] MEDS ORDERED: Enoxaparin(*) 150 MG/ML 1 ML SYRINGE SUBCUT ONE (20:45)
--- NOTE | 2019-02-10 21:28 | PRO ---
CC: Dr. Dequan Kerr* COLONOSCOPY REPORT: DATE OF PROCEDURE: 02/10/19 PRIMARY CARE PHYSICIAN: Dr. Dequan Kerr, INDICATION FOR PROCEDURE: Acute blood loss anemia. PROCEDURE PERFORMED: Complete colonoscopy to the terminal ileum. MEDICATIONS GIVEN: Include: 1. 5 mg IV midazolam. 2. 50 mcg IV fentanyl. DESCRIPTION OF PROCEDURE: After the colonoscopy procedure including the risks, benefits, and alternatives with the risks not limited to perforation, surgery, missed lesions, and/or were explained to the patient, written informed consent was obtained, IV medication was given, and a rectal exam was performed. The rectal exam was unremarkable. The adult Olympus colonoscope was then inserted into the patient's rectum and advanced very carefully through the entirety of the colon into the cecal base. Cecal base was carefully inspected and normal in appearance. The terminal ileal valve was identified and intubated x4 to 5 cm and normal. The scope was then returned to the cecum. A photograph was taken of the cecal cap. No fresh or old blood was seen on the entire exam. On slow withdrawal over the next 7 minutes, the colon was carefully inspected. There was moderate left-sided diverticulosis coli with no fresh or old blood. No polyps or lesions were identified. On return to the rectum, direct views were normal. On retroflexion, the views were normal as well. The scope was then removed from the patient. He tolerated the procedure well. He returned to the recovery room in stable condition. IMPRESSION: 1. Complete colonoscopy to the terminal ileum. 2. Left-sided diverticulosis coli. 3. Good prep. 4. No fresh or old blood on entire exam. RECOMMENDATIONS: He may have had a diverticular bleed versus contribution from the small erosions on the upper GI tract. He should absolutely avoid NSAIDs in the future. If he has a high CHADS-VASc score, would recommend restarting anticoagulation with the understanding that this certainly could happen again as we did not have a discrete cause. Given his valvular heart disease, a capsule endoscopy may be reasonable to look for small bowel arteriovenous malformations. He can follow up in the office with Dr. Stephenson for further management. If he has a low CHADS-VASc score, would consider withholding anticoagulation indefinitely given the occult GI bleed. [id number]/[facility] #: [id number] [facility]ENTERLina
[2019-02-11] MEDS: Clindamycin 600 MG/D5W BAG(*) 600 MG/50 ML BAG IV SCH ×2 (00:04→09:55)
[2019-02-11] MEDS: Acetaminophen TAB* 325 MG PO PRN ×2 (04:59→20:16)
[2019-02-11] MEDS: Levothyroxine TAB* 50 MCG TAB PO SCH (04:59)
[2019-02-11] MEDS ORDERED: Furosemide IV* 10 MG/ML 10 ML VIAL (100 MG) IV ONE (06:00)
[2019-02-11 06:17] LABS: ABS Basophils 0.1 10^3/ul (0-0.2); ABS Eosinophils 0.4 10^3/ul (0-0.6); ABS Lymphocytes 0.8 10^3/ul (1.0-4.8); ABS Monocytes 0.8 10^3/ul (0-0.8); ABS Neutrophils 5.4 10^3/ul (1.5-7.7); Eosinophil % 4.9 %; Hematocrit 25 % (42-52); Hemoglobin 8.1 g/dL (14.0-18.0); Lymphocyte % 10.7 %; Mean Corpuscular HGB Conc 32 g/dL (31-36); Mean Corpuscular Hemoglobin 30 pg (27-31); Mean Corpuscular Volume 93 fL (80-94); Mean Platelet Volume 6.7 fL (7.4-10.4); Nucleated Red Blood Cells % 0.1; Platelet Count 256 10^3/uL (150-450); Red Blood Count 2.68 10^6 /uL (4.18-5.48); Red Cell Distribution Width 16 % (10-15); White Blood Count 7.5 10^3/uL (3.5-10.8)
[2019-02-11 06:42] LABS: Calcium 8.3 mg/dL (8.6-10.3); Magnesium 2.4 mg/dL (1.9-2.7); Potassium 4.1 mmol/L (3.5-5.0)
[2019-02-11 06:47] LABS: BUN/Creatinine Ratio 37.9 (8-20); EGFR African American 142.8 (>60)
[2019-02-11] MEDS ORDERED: Enoxaparin(*) 150 MG/ML 1 ML SYRINGE SUBCUT ONE ×2 (09:30→21:30)
[2019-02-11] MEDS: Lactobacillus Acidophilus* 1 TAB PO SCH (09:59)
[2019-02-11] MEDS: Multivitamins/Minerals TAB PO SCH (09:59)
[2019-02-11] MEDS: Triamcinolone 0.5% OINT * 15 GM TUBE TOPICAL SCH ×2 (10:01→20:18)
--- NOTE | 2019-02-11 12:39 | PN ---
Subjective Date of Service: 02/11/19 Interval History: Started on therapeutic AC last night, no BM yet today. Hgb stable. Continuing on AC. Received IV furosemide this AM with excellent UOP - pt reports his weight is down 10 lbs. Leg pain significantly improved. Still denies chills, fevers, drainage. Objective Active Medications: Acetaminophen (Tylenol Tab*) 650 mg PO Q4H PRN PRN Reason: PAIN - MILD Last Admin: 02/11/19 04:59 Dose: 650 mg Clindamycin HCl (Cleocin Cap*) 450 mg PO Q6HR ON LICENSE OF [facility] Enoxaparin Sodium (Lovenox(*)) 117 mg SUBCUT ONCE ONE Stop: 02/11/19 21:31 Furosemide (Lasix Tab*) 80 mg PO QAM ON LICENSE OF [facility] Lactobacillus Rhamnosus (Lactobacillus Acidophilus*) 1 tab PO DAILY [facility] Last Admin: 02/11/19 09:59 Dose: 1 tab Levothyroxine Sodium (Synthroid Tab*) 50 mcg PO 0600 [facility] Last Admin: 02/11/19 04:59 Dose: 50 mcg Multivitamins/Minerals (Theragran/Minerals Tab*) 1 tab PO DAILY [facility] Last Admin: 02/11/19 09:59 Dose: 1 tab Triamcinolone Acetonide (Triamcinolone 0.5% Oint *) 1 applic TOPICAL BID [facility] Last Admin: 02/11/19 10:01 Dose: 1 applic Triamterene/HCTZ (Dyazide Cap*) 1 cap PO DAILY [facility] Vital Signs - 8 hr 02/11/19 02/11/19 02/11/19 07:15 08:00 11:15 Temperature 97.5 F 97.5 F Pulse Rate 69 74 Respiratory 18 18 20 Rate Blood Pressure 126/73 117/52 (mmHg) O2 Sat by Pulse 100 100 Oximetry Oxygen Devices in Use Now: None Appearance: well appearing, reclining in bed watching TV, alert and interactive Result Diagrams: 02/11/19 05:03 02/11/19 05:03 Microbiology and Other Data: Microbiology 02/09/19 00:25 Nasal Screen MRSA (PCR) - Final Nasal Mrsa Not Detected 02/08/19 20:30 Stool Occult Blood (MANGO) - Final Stool Assess/Plan/Problems-Billing Assessment: 73M with afib on Eliquis, HFpEF, HTN, hypothyroidism, obesity, presents with 2 days of black stools associated with decrease UOP and lightheadedness, found with severe anemia requiring blood transfusion, upper and lower scopes without etiology.. - Patient Problems (1) Atrial fibrillation Comment: CHADSVaSC 3, which indicates 3.2% ischemic stroke rate per year. Given high risk, and likely preventable cause of bleed (pt knows to avoid NSAIDs), mutual decision with patient to start AC in hospital and monitor for > 24 hr. If no rebleeding and Hgb stable, will DC back on Eliquis. - on therapeutic lovenox - not on rate/rhythm control (2) GI bleed due to NSAIDs Comment: Taking daily naproxen while on apixaban. Melena for 2 days with hypovolemia. Hgb 5.7 -> 7.4 after 3 u pRBC. Received PCC in the ER. - NO NSAIDS - appreciate GI input - EGD and c-scpe without definitive cause - s/p PPI IV - monitor CBC and transfuse for Hgb < 7 (3) Cellulitis Comment: h/o recent outpatient treatment for thrombophlebitis without improvement, now with erythematous tender skin. No open wounds. No MRSA risk factors but recently failed oral treatment with meds not covering for community- MRSA. - significant improvement on IV clindamycin 600mg q8h (02/09 - ), will switch to PO 02/11 (4) Heart failure with preserved ejection fraction Comment: per patient. No respiratory symptoms. - s/p furosemide IV, now will switch back to home PO (5) Hypertension Comment: - restart home HCTZ - still holding amlodipine and benazepril in setting of bleed
[2019-02-11] MEDS: Triamterene/HCTZ 37.5-25 MG* CAP PO SCH (13:51)
[2019-02-11] MEDS: Furosemide TAB* 40 MG PO SCH (15:05)
[2019-02-11] MEDS: Clindamycin CAP* 150 MG PO SCH ×2 (18:11→23:50)
[2019-02-12] MEDS: Clindamycin CAP* 150 MG PO SCH ×2 (05:22→11:17)
[2019-02-12] MEDS: Levothyroxine TAB* 50 MCG TAB PO SCH (05:22)
[2019-02-12 05:58] LABS: Hematocrit 23 % (42-52); Hemoglobin 7.8 g/dL (14.0-18.0); Mean Corpuscular HGB Conc 34 g/dL (31-36); Mean Corpuscular Hemoglobin 30 pg (27-31); Mean Corpuscular Volume 90 fL (80-94); Mean Platelet Volume 6.6 fL (7.4-10.4); Platelet Count 259 10^3/uL (150-450); Red Blood Count 2.57 10^6 /uL (4.18-5.48); Red Cell Distribution Width 15 % (10-15); White Blood Count 7.7 10^3/uL (3.5-10.8)
[2019-02-12 06:19] LABS: BUN/Creatinine Ratio 31.7 (8-20); Calcium 8.4 mg/dL (8.6-10.3); EGFR African American 150.6 (>60); EGFR Non-African American 124.5 (>60); Magnesium 2.1 mg/dL (1.9-2.7); Potassium 3.2 mmol/L (3.5-5.0)
[2019-02-12] MEDS ORDERED: Potassium Chlor TAB* 20 MEQ TAB.ER PO ONE (08:11)
[2019-02-12] MEDS: Lactobacillus Acidophilus* 1 TAB PO SCH (08:47)
[2019-02-12] MEDS: Furosemide TAB* 40 MG PO SCH (08:47)
[2019-02-12] MEDS: Triamcinolone 0.5% OINT * 15 GM TUBE TOPICAL SCH (08:48)
[2019-02-12] MEDS: Multivitamins/Minerals TAB PO SCH (08:48)
[2019-02-12] MEDS: Triamterene/HCTZ 37.5-25 MG* CAP PO SCH (08:48)
[2019-02-12] MEDS ORDERED: Apixaban* 5 MG TAB PO SCH (09:00)
[2019-02-12 11:44] VITALS: BP 121/52
--- NOTE | 2019-02-12 14:41 | DS ---
CC: Dr. Dequan Kerr * DISCHARGE SUMMARY: DATE OF ADMISSION: 02/08/19 DATE OF DISCHARGE: 02/12/19 PRIMARY CARE PHYSICIAN: Dr. Dequan Kerr PRIMARY DIAGNOSES: 1. Gastrointestinal bleeding. 2. Left leg cellulitis. 3. Congestive heart failure. 4. Hypertension. SECONDARY DIAGNOSES: 1. Atrial fibrillation, on Eliquis. 2. Hypothyroidism. 3. Morbid obesity. 4. Vascular insufficiency of lower extremities. CONSULTS: Dr. Stephenson, Gastroenterology. PROCEDURES: EGD on 02/09/19 and colonoscopy on 02/10/19. DISCHARGE MEDICATIONS: 1. Clindamycin 300 mg 4 times a day for 4 more days. 2. Lactobacillus 1 tablet daily while on antibiotics. 3. Furosemide 80 mg daily. 4. Triamterene/hydrochlorothiazide 37.5/25 one capsule daily. 5. Apixaban 5 mg twice a day. 6. Potassium chloride 40 mEq twice a day. 7. Levothyroxine 50 mcg in the morning. 8. Multivitamin 1 tablet daily. HISTORY OF PRESENT ILLNESS: Mr. Curran is a 73-year-old man with heart failure with preserved ejection fraction, atrial fibrillation, on Eliquis, hypertension, refractory lower extremity edema, hypothyroidism, who presented with black tarry stools for 1 day. The patient reports experiencing lightheadedness when trying to get up and walking with his walker. He felt weak and decided he needed to present to the emergency room for evaluation. He reports 1 episode of vomiting on the day of presentation with contents being food and denies coffee-ground emesis or blood. The patient reports a diagnosis of thrombophlebitis approximately 3 weeks ago for which he received outpatient antibiotics. The patient reports that for the inflammation from his left lower extremity thrombophlebitis he began to take Aleve 1 to 2 times a day for the last 3 weeks. He continued to take his Eliquis twice a day. He reports he usually takes Aleve occasionally and will stop when he begins experiencing nose bleeds. The patient otherwise denies chest pain, shortness of breath, orthopnea, visual disturbance, fever, or chills. He reports significant left lower extremity pain and swelling in addition to just baseline bilateral lower extremity edema. HOSPITAL COURSE: In the emergency room, the patient was noted to have a hemoglobin of 5.7 and he was given 2 units of packed red blood cells with increase only to 6.3. He was put in the ICU, given 1 more unit of packed red blood cells with appropriate response of 7.4. By next day, he underwent an EGD, which showed mild esophagitis with small erosion at the GE junction, nodular erythema in the duodenal bulb with a tiny erosion, mildly irregular Z-line, no fresh oral blood. The patient stopped experiencing melena by the time of his presentation and his hemoglobin remained stable until after EGD, it was recommended that the patient then undergo a colonoscopy to explore for lower bleed as the cause of severe anemia. By next morning after initiation of GoLYTELY, the patient did experience slight decrease in hemoglobin from 7.5 to 6.8. Over night, he had multiple liquid burgundy stools, which was thought to be old blood. He again received a transfusion and responded appropriately to 8 where he remained for the following 2 days. The patient then underwent a colonoscopy with Dr. Duff of , which showed left- sided diverticulosis with no fresh or old blood in the colon. As no definitive source of bleed was found, although likely source was upper GI tract, it was recommended that the patient only pursue further anticoagulation if he has high risk for a stroke. Given the patient's CHADS/VASc score of 3 with points for his age, hypertension , and heart failure history, extensive discussion was had with the patient regarding indications of anticoagulation and risks of recurrent bleed. The patient felt that his risk of recurrent bleed was low, as he does feel this was from his NSAID use and he is aware that he should completely avoid taking these medications in the future, and he also understands how to look for signs of further bleeding. After the discussion, it was decided to initiate the patient on subcutaneous Lovenox in the hospital over nearly 2 days to monitor closely for rebleeding. The patient tolerated initiation of Lovenox, had no further episodes of bleeding, vomiting, melena or bright red blood per rectum. By the day of discharge, the patient's hemoglobin was stable and he was resumed on Eliquis. Of note, throughout hospitalization, the patient had low to normal blood pressure and his home hydrochlorothiazide, benazepril and amlodipine were held. Given significant blood products, the patient did experience mild increase in his lower extremity edema, which at baseline was quite severe. The patient was given IV diuretics with good response. He was reinitiated on his home furosemide and hydrochlorothiazide, which he tolerated well, but not his calcium channel ronny or RED inhibitor. Also of note, the patient had significant erythema and tenderness over distal left lower extremity. He was initially on clindamycin on the day of admission with very quick improvement in pain and erythema. After 2 days, he was switched to oral clindamycin, which he tolerated well and he was discharged on this to complete a 7-day course. A 10-point review of systems was performed on the day of discharge and significant for mild pain on palpation of the left lower extremity, significant lower extremity edema, which is the patient's baseline. The patient denies shortness of breath, weakness beyond baseline, or feeling cold. He also denies fevers and chills. He denies orthopnea. He reports being able to ambulate briefly around floors and to and fro from bathroom, which is baseline with walker. PHYSICAL EXAMINATION: Afebrile. Heart rate 67, blood pressure 121/52, respiratory rate 20, oxygen saturation 100% on room air. In general, he is a well-appearing man in no acute distress, who is alert and interactive and very verbose. Neck: Unable to appreciate JVD due to body habitus. HEENT: With moist mucous membranes. OP clear. Chest: Lungs clear to auscultation bilaterally. Heart: Irregularly irregular. No murmurs, gallops, or rubs. Abdomen: Protuberant, nontender, nondistended. Extremities: With 3+ pitting edema to knees and trace edema throughout thighs. Distal left lower extremity erythema significantly improved and now hyperpigmented, tenderness very mild, warmth is improved and now equal to right leg. Neuro: A and O x3. Strength 5/ 5 in 4 extremities. LABS: Discharge hemoglobin 7.8 with MCV 90. Creatinine 0.63. DISCHARGE PLAN: The patient has an appointment with his primary care physician in 2 days. He should continue to have blood pressure monitoring given that 2 of his blood pressure medicines were discontinued during admission. If one needs to be restarted, we would choose benazepril first. The patient was extensively educated to avoid NSAID use in the future and he was also advised to keep a recording of his daily weights and blood pressures and to contact his primary care physician if he notices significant increase in either of these numbers. His only new medication is clindamycin, for which he was given additional 4 days to complete a 7-day course for left lower extremity cellulitis. He was also advised to take probiotic with this as he reports frequently experiencing diarrhea on antibiotics. The patient was extensively educated on return precautions, which include, but are not limited to signs of C. diff such as profuse watery diarrhea or new symptoms of fever. He is also aware of signs of GI bleeding that should prompt return to the hospital such as melena, bright red blood per rectum, hematemesis or coffee-ground emesis. The patient will follow up in vascular clinic for treatment for a significant lower extremity swelling not improved with high levels of diuretics. He was also advised to continue adherence to compression stockings and leg elevation and leg exercises to help with lower extremity edema, which may also reduce chances of infection. Lastly, he should continue to have ongoing monitoring of has basic metabolic panel in 2 days as he did have low potassium in the hospital when his home oral potassium was discontinued. DIET: The patient should eat a healthy diet low in processed foods. ACTIVITY: As tolerated. DISPOSITION: To home. CONDITION: Improved. TIME SPENT: Approximately 60 minutes was spent on discharge of this patient, more than half of which was spent with care coordination at bedside for interview and exam. [id number]/[facility] #: [id number] KRYSTINA
== END 2019-02-12 15:12 | disposition home or self-care (01) | DRG 378 ==
LOC: ED 18:47 → ICU 23:19 → MEDTELE 02-10 18:30
PROVIDERS: ADMIT Internal Medicine; ATTEND Internal Medicine
PROC: 30233N1 Transfusion of Nonautologous Red Blood Cells into Peripheral Vein, Percutaneous Approach (ICD-10-PCS; 2019-02-08)
PROC: 0DB58ZX Excision of Esophagus, Via Natural or Artificial Opening Endoscopic, Diagnostic (ICD-10-PCS; 2019-02-09)
PROC: 0DJD8ZZ Inspection of Lower Intestinal Tract, Via Natural or Artificial Opening Endoscopic (ICD-10-PCS; principal; 2019-02-10)
DX: K92.1 Melena (principal); D62 Acute posthemorrhagic anemia; E87.1 Hypo-osmolality and hyponatremia; I50.32 Chronic diastolic (congestive) heart failure; L03.116 Cellulitis of left lower limb; K22.10 Ulcer of esophagus without bleeding; I48.91 Unspecified atrial fibrillation; I45.10 Unspecified right bundle-branch block; E03.9 Hypothyroidism, unspecified; E87.5 Hyperkalemia; I89.0 Lymphedema, not elsewhere classified; K57.30 Diverticulosis of large intestine without perforation or abscess without bleeding; E66.01 Morbid (severe) obesity due to excess calories; T39.395A Adverse effect of other nonsteroidal anti-inflammatory drugs [NSAID], initial encounter; I80.3 Phlebitis and thrombophlebitis of lower extremities, unspecified; K26.9 Duodenal ulcer, unspecified as acute or chronic, without hemorrhage or perforation; E86.1 Hypovolemia; I11.0 Hypertensive heart disease with heart failure; Z88.1 Allergy status to other antibiotic agents; Z91.040 Latex allergy status; Z87.891 Personal history of nicotine dependence; Z80.1 Family history of malignant neoplasm of trachea, bronchus and lung; Y92.009 Unspecified place in unspecified non-institutional (private) residence as the place of occurrence of the external cause; Z68.37 Body mass index [BMI] 37.0-37.9, adult; Z79.01 Long term (current) use of anticoagulants
CPT/HCPCS: 36415; 80048; 80053; 82272; 83735; 83880; 84443; 84484; 85014; 85018; 85025; 85027; 85060; 85610; 86078; 86140; 86850; 86900; 86901; 86922; 87641; 88305; 93005; 96374; 96376; 99156; 99157; 99285; A9270-GY; C9132; J1650; J1940; J2250; J3010; P9040

== ENCOUNTER 2019-03-29 20:25 | Inpatient (IN) | payer MEDICARE, OTHER ==
--- NOTE | 2019-03-29 20:38 | ED ---
Complex/Multi-Sys Presentation - HPI Summary HPI Summary: Patient is a 73 y/o M presenting to the ED via EMS for a chief complaint of right hip pain after a fall. Patient states he was alongside the bed on the floor during the day on 03/29/19 after sliding out of his bed around 05:00. He states he had weakness that made it difficult to lift himself up after the fall. Patients found the patient on the floor around 17:00 after arriving home from work. He could not ambulate to the bathroom on his own and required his 's help due to his right LE weakness. Per EMS, patient did not have a LOC. Patient also has left UE ecchymosis and soreness, bilateral LE edema, left LE erythema, and some urinary incontinence. He was seen at [facility] one month ago after a GI bleed. He takes blood thinners. PMHx is significant for femur fracture in 2016 after a fall. Patient uses a cane at home without problems when walking on flat surfaces. - History Of Current Complaint Hx Obtained From: Patient Onset/Duration: Sudden Onset, Still Present Timing: Constant Severity Currently: Moderate Severity Initially: Moderate Associated Signs And Symptoms: Positive: Weakness - Right LE, Edema - Bilateral LE - Allergies/Home Medications Allergies/Adverse Reactions: Allergies Allergy/AdvReac Type Severity Reaction Status Date / Time Latex, Natural Rubber Allergy Rash Verified 02/08/19 19:00 ANTIBIOTIC, POSSIBLY Allergy Diarrhea Uncoded 02/08/19 19:00 CEPHALEXIN Home Medications: Home Medications Levothyroxine TAB* [Synthroid TAB*] 88 mcg PO DAILY 03/29/19 [History Confirmed 03/29/19] PMH/Surg Hx/FS Hx/Imm Hx Previously Healthy: Yes Endocrine/Hematology History: Reports: Hx Anticoagulant Therapy, Hx Blood Transfusions, Hx Thyroid Disease Denies: Hx Diabetes Cardiovascular History: Reports: Hx Congestive Heart Failure, Hx Hypertension Respiratory History: Denies: Hx Asthma, Hx Chronic Obstructive Pulmonary Disease (COPD) GI History: Reports: Hx Gastrointestinal Bleed Denies: Hx Ulcer Musculoskeletal History: Reports: Other Musculoskeletal History - right hip surgery Sensory History: Reports: Hx Contacts or Glasses Denies: Hx Legally Blind, Hx Deafness, Hx Hearing Aid Opthamlomology History: Reports: Hx Contacts or Glasses Denies: Hx Legally Blind EENT History: Denies: Hx Deafness - Surgical History Surgical History: Yes Surgery Procedure, Year, and Place: RLE VEIN SURGERY 2013, bilat vascular leg surgery, RIGHT HIP - GAMMA NAIL Infectious Disease History: No Infectious Disease History: Denies: Hx Clostridium Difficile, Hx Hepatitis, Hx Human Immunodeficiency Virus (HIV), Hx of Known/Suspected MRSA, Hx Shingles, Hx Tuberculosis - Family History Known Family History: Negative: Diabetes - Social History Occupation: Retired Lives: With Family Alcohol Use: Rare Hx Substance Use: No Substance Use Type: Reports: None Hx Tobacco Use: Yes Smoking Status (MU): Former Smoker Review of Systems Positive: incontinence - Urinary Positive: Arthralgia - Right hip pain, Myalgia - Left UE soreness, Edema - Bilateral LE Positive: Bruising - Left UE, Other - Left LE erythema Positive: Weakness - Right LE. Negative: Syncope All Other Systems Reviewed And Are Negative: Yes Physical Exam - Summary Physical Exam Summary: Appearance: Well-appearing, Well-nourished elderly male lying in bed comfortably in no acute distress. Skin: Warm, dry, no obvious rash Eyes: sclera anicteric, no conjunctival pallor ENT: mucous membranes moist, pharynx appears normal Neck: Supple, nontender Respiratory: Clear to auscultation, no signs of respiratory distress Cardiovascular: Normal S1, S2. No murmurs. Normal distal pulses in tibial and radial bilaterally. Abdomen: Soft, nontender, normal active bowel sounds present Musculoskeletal: Strength/ROM Intact. Marked chronic appearing lymphedema of both legs. Left leg has signs of acute cellulitis with warmth and swelling extending from just above the ankle to just below the knee. Neurological: A&Ox3, awake and alert, mentation is normal, speech is fluent and appropriate Psychiatric: affect is normal, does not appear anxious or depressed Triage Information Reviewed: Yes Vital Signs Reviewed: Yes Procedures - Sedation Patient Received Moderate/Deep Sedation with Procedure: No Diagnostics - Laboratory Result Diagrams: 03/30/19 04:59 03/30/19 04:59 Lab Statement: Any lab studies that have been ordered have been reviewed, and results considered in the medical decision making process. - EKG 20:45 Cardiac Rate: Other Rate - 65 BPM EKG Rhythm: Atrial Fibrillation ST Segment: Normal Ectopy: None EKG Comparison: No Significant Change - From 02/08/19 Summary of EKG Findings: EKG at 20:45 shows atrial fibrillation at 65 BPM, RBBB and LPFB, P waves, QRS complex, and T waves are within normal limits, T waves and intervals are normal, no ischemic changes. This is a normal EKG. No significant change from 02/08/19. Reviewed and interpreted by Dr. Echeverria. Complex Multi-Symp Course/Dx Course Of Treatment: Patient is a 73 y/o M presenting to the ED via EMS for a chief complaint of right hip pain after a fall. Patient states he was alongside the bed on the floor during the day on 03/29/19 after sliding out of his bed around 05:00. He states he had weakness that made it difficult to lift himself up after the fall. Patients found the patient on the floor around 17:00 after arriving home from work. He could not ambulate to the bathroom on his own and required his 's help due to his right LE weakness. Per EMS, patient did not have a LOC. Patient also has left UE ecchymosis and soreness, bilateral LE edema, left LE erythema, and some urinary incontinence. He was seen at [facility] one month ago after a GI bleed. He takes blood thinners. PMHx is significant for femur fracture in 2016 after a fall. Patient uses a cane at home without problems when walking on flat surfaces. On exam, elderly male in no acute distress, marked chronic appearing lymphedema of both legs. Left leg has signs of acute cellulitis with warmth and swelling extending to just below the knee. In the ED course, patient was given fluids. Laboratory abnormal findings: WBC 17.1, RBC 4.05, Hgb 10.5, Hct 33, MCH 26, RDW 17, MPV 6.8, absolute neuts 15.9, absolute lymphs 0.3, absolute monos 0.9, potassium 3.4, BUN 41, BUN/Creatinine ratio 36.6, glucose 124, lactic acid 3.9, AST 288, ALT 83, troponin I 0.21, c- reactive protein 137.12. EKG at 20:45 shows atrial fibrillation at 65 BPM, RBBB and LPFB, P waves, QRS complex, and T waves are within normal limits, T waves and intervals are normal, no ischemic changes. This is a normal EKG. No significant change from 02/08/19. At 22:00, Dr. Clemons agrees to admit the patient to [facility] with a diagnosis of cellulitis. Patient will be admitted to [facility] with a diagnosis of cellulitis. - Diagnoses Provider Diagnoses: Cellulitis - Physician Notifications Discussed Care Of Patient With: Krystal Clemons - At 22:00, Dr. Clemons agrees to admit the patient to [facility] with a diagnosis of cellulitis. Time Discussed With Above Provider: 22:00 Instructed by Provider To: Admit As Inpatient Discharge ED - Sign-Out/Discharge Documenting (check all that apply): Patient Departure - Admit - Discharge Plan Condition: Guarded Disposition: ADMITTED TO [facility] - Billing Disposition and Condition Condition: GUARDED Disposition: Admitted to [facility] - Attestation Statements Document Initiated by Charan: Yes Documenting Scribe: Alma Sterling Provider For Whom Charan is Documenting (Include Credential): Ruslan Echeverria MD Scribe Attestation: Alma Locke scribed for Ruslan Echeverria MD on 03/30/19 at 0623. Scribe Documentation Reviewed: Yes Provider Attestation: The documentation as recorded by the Alma van accurately reflects the service I personally performed and the decisions made by Ruslan leo MD Status of Scribe Document: Viewed
--- OUTSIDE RECORDS SUMMARY | 2019-03-29 21:20 | XMS REPORT | Continuity of Care Document ---
:1945 External Reference #:[id number] Author Name Tiffany Renae MD (transmitted by agent of provider Shae Cuellar) Address [address] [place] [address] Care Team Providers Name Role Phone Montez Hagen MD - Surgery Care Team Information Clinical Administrative Coordinator Dequan Kerr MD - Internal Care Team Information Clinical Administrative Coordinator Medicine Srinivas Singh MD [facility] - Care Team Information Clinical Administrative Coordinator Cardiovascular Disease Problems Active Problems Provider Date Benign essential hypertension Jerrell Arzate M.D. Onset: 02/18/2011 Hypothyroidism Jerrell Arzate M.D. Onset: 02/18/2011 Bladder muscle dysfunction - overactive Jerrell Arzate M.D. Onset: 2010 Congestive heart failure Jerrell Azrate M.D. Onset: 02/18/2011 Difficulty speaking Jerrell Arzate M.D. Onset: 02/18/2011 Injury of head Jerrell Arzate M.D. Onset: 02/18/2011 Acute ill-defined cerebrovascular Jerrell Arzate M.D. Onset: 02/27/2011 disease Subarachnoid hemorrhage following Jerrell Arzate M.D. Onset: 02/27/2011 injury without open intracranial wound Atrial fibrillation Jerrell Arzate M.D. Onset: 02/27/2011 Obstructive sleep apnea syndrome Jerrell Arzate M.D. Onset: 02/18/2011 Varicose veins of lower extremity Jerrell Arzate M.D. Onset: 02/18/2011 Electrocardiogram abnormal Srinivas Singh M.D. Onset: 03/10/2011 Benign prostatic hypertrophy without Jerrell Arzate M.D. Onset: 03/24/2011 outflow obstruction Mitral valve disorder Srinivas Singh M.D. Onset: 06/09/2011 Rheumatic disease of tricuspid valve Srinivas Singh M.D. Onset: 06/09 Onychomycosis Jerrell Arzate M.D. Onset: 03/29/2012 Benign paroxysmal positional vertigo Jerrell Arzate M.D. Onset: 06/28/2012 Ulcer of lower extremity Jerrell Arzate M.D. Onset: 10/04/2012 Hypokalemia Jerrell Arzate M.D. Onset: 11/30/2012 Dermal mycosis Jerrell Arzate M.D. Onset: 11/30/2012 Cellulitis and abscess of leg Jerrell Arzate M.D. Onset: 02/09/2013 Paroxysmal ventricular tachycardia Srinivas Singh M.D. Onset: 2013 Musculoskeletal disorder of the neck Noel Cornejo M.D. Onset: 2014 Referred otalgia Noel Cornejo M.D. Onset: 09/21/2014 Headache Noel Cornejo M.D. Onset: 09/21/2014 Posterior rhinorrhea Noel Cornejo M.D. Onset: 09/21/2014 Chronic atrial fibrillation Srinivas Singh M.D. Onset: 07/10/2015 Essential hypertension Srinivas Singh M.D. Onset: 07/10/2015 Localized, secondary osteoarthritis of Marcelle Valentin M.D. Onset: 09/03/2018 the pelvic region and thigh Social History Type Date Description Comments Sex Unknown Tobacco Use Start: Unknown End: Former Cigarette Smoker 3 Unknown Packs Daily Tobacco Use Start: Unknown 2005 Smoking Status Reviewed: 02/24/19 2006 Cigars Quit 10 Years Ago Pipe Quit 10 Years Ago ETOH Use Rarely consumes alcohol Tobacco Use Start: Unknown End: Patient is a former smoker quit in 1993 Unknown Exercise Type/Frequency Does not exercise Allergies, Adverse Reactions, Alerts Active Allergies Reaction Severity Comments Date Trimethoprim diarrhea 05/19/2013 Inactive Allergies NKDA 02/18/2011 Medications Active Medications SIG Qnty Indications Ordering Provider Date Potassium Chloride ER 2 tab bid 90tabs Jerrell Arzate, 12/27/2012 20Meq M.D. Tablets ER Lasix 1 1/2 tabs 90tabs Jerrell Arzate, 80mg Tablets daily M.D. Multivitamins 1 po qd 30tabs Unknown Tablets Triamterene/Hydrochloro 1 by mouth 30tabs Unknown thiazide every day 37.5-25mg Tablets Eliquis 1 by mouth Unknown 5mg Tablets twice a day Super Beets 1 po qd Unknown Triamcinolone Acetonide apply thin film Unknown twice daily prn 0.1% Cream Levothyroxine Sodium 1 by mouth 90tabs Unknown 25mcg every day Tablets History Medications Lasix 1 by mouth every Jerrell Arzate M.D. 02/24/2019 - 80mg Tablets day 02/22/2019 Medications Administered in Office Medication SIG Qnty Indications Ordering Provider Date Inj, Regadenoson, 0.1 MG Clif Belle M.D. 01/06/2019 Injection Technetium TC 99M Tetrofosmin, Clif Belle M.D. 01/06/2019 Per Unit Dose Up To 40 Millicuries Injection Technetium TC 99M TetrofosminClif M.D. 01/06/2019 Per Unit Dose Up To 40 Millicuries Injection Immunizations CPT Code Status Date Vaccine Lot # [id number] Given 01/17/2013 Flu Vaccine Split Virus Preservative Free For [id number] Indiv [id number] Older [id number] Given 12/29/2011 Fluzone Vaccine [id number] Given 12/29/2011 Pneumonia Vaccine [id number] Vital Signs Date Vital Result Comment 02/24/2019 12:55pm Height 68.25 inches 5'8.25" Weight 260.00 lb Heart Rate 84 /min BP Systolic Sitting 130 mmHg BP Diastolic Sitting 70 mmHg O2 % BldC Oximetry 99 % BMI (Body Mass Index) 39.2 kg/m2 12/06/2018 4:08pm Height 68.25 inches 5'8.25" Weight 264.00 lb with shoes Heart Rate 80 /min BP Systolic Sitting 120 mmHg Lue lg cuff BP Diastolic Sitting 70 mmHg Lue lg cuff BP Systolic Standing 126 mmHg Lue lg cuff BP Diastolic Standing 70 mmHg Lue lg cuff Respiratory Rate 16 /min BMI (Body Mass Index) 39.8 kg/m2 Ejection Fraction 55-60% date 08/26/18 ECHO Results Test Acquired Date Facility Test Result H/L Range Note Basic Metabolic 02/07/2019 [facility] Sodium 138 mmol/L Normal 135-[address] [place] [address] [phone] Potassium 4.9 mmol/L Normal 3.5-5.0 Chloride 103 mmol/L Normal 101-111 Co2 Carbon Dioxide 29 mmol/L Normal 22-32 Anion Gap 6 mmol/L Normal 2-11 Glucose 101 mg/dL High 70-100 Blood Urea Nitrogen 49 mg/dL High 6-24 Creatinine 0.67 mg/dL Normal 0.67-1.17 BUN/Creatinine Ratio 73.1 High 8-20 Calcium 9.1 mg/dL Normal 8.6-10.3 Egfr Non- 116.0 >60 Egfr 140.3 >60 1 Laboratory 02/07/2019 [facility] TSH (Thyroid 4.03 Normal 0.34 -5.60 test finding [address] Stim Horm) mcIU/[place] [address] [phone] Laboratory 11/26/2018 [facility] C Reactive 3.07 mg/L Normal < 8.01 test finding [address] [place] [address] [phone] Erythrocyte Sed Rate 10 mm/Hr Normal 0-19 1 Because ethnic data is not always readily available, this report includes an eGFR for both -Americans and non- Americans. The National Kidney Disease Education Program (NKDEP) does not endorse the use of the MDRD equation for patients that are not between the ages of 18 and 70, are , have extremes of body size, muscle mass, or nutritional status, or are non- or non-. According to the National Kidney Foundation, irrespective of diagnosis, the stage of the disease is based on the level of kidney function: Stage Description GFR(mL/min/1.73 m(2)) 1 Kidney damage with normal or decreased GFR 90 2 Kidney damage with mild decrease in GFR 60-89 3 Moderate decrease in GFR 30-59 4 Severe decrease in GFR 15-29 5 Kidney failure <15 (or dialysis) Procedures Date Code Description Status 01/06/2019 95018 Stress Test Completed 01/06/2019 34898 Myocardial Perfusion Imaging Tomographic (Spect) Completed Multiple Studies 12/06/2018 96030 EKG Tracing & Interpretation Completed 08/26/2018 46949 ECHO Transthoracic, Real-Time 2D With Doppler And Completed Color Flow 08/26/2018 76980 ECHO Transthoracic, Real-Time 2D With Doppler And Completed Color Flow 04/01/2012 693492323 Diabetic Foot Exam Completed Medical Devices Description No Information Available Encounters Type Date Location Provider Dx Diagnosis Office Visit 02/24/2019 [facility] Tiffany K92.2 Gastrointestinal 1:00p Medicine - Sharon Renae MD hemorrhage, unspecified I10 Essential (primary) hypertension I48.91 Unspecified atrial fibrillation L03.116 Cellulitis of left lower limb Office 02/11/2019 [facility] T39.395A Adverse effect of Visit 9:57a mukesh Damian MD nonsteroidal Hospitalists anti-inflammatory drugs, init K92.2 Gastrointestinal hemorrhage, unspecified I11.0 Hypertensive heart disease with heart failure I50.30 Unspecified diastolic (congestive) heart failure I48.91 Unspecified atrial fibrillation Office 02/10/2019 [facility] T39.395A Adverse effect of Visit 9:56a mukesh Damian MD nonsteroidal Hospitalists anti-inflammatory drugs, init K92.2 Gastrointestinal hemorrhage, unspecified I48.91 Unspecified atrial fibrillation I11.0 Hypertensive heart disease with heart failure I50.30 Unspecified diastolic (congestive) heart failure Office 02/09/2019 [facility] T39.395A Adverse effect of Visit 9:55a mukesh Damian MD nonsteroidal Hospitalists anti-inflammatory drugs, init K92.2 Gastrointestinal hemorrhage, unspecified I11.0 Hypertensive heart disease with heart failure I50.30 Unspecified diastolic (congestive) heart failure I48.91 Unspecified atrial fibrillation [facility] 9:55a mukesh Damian M.D. hemorrhage, Hospitalists unspecified D64.9 Anemia, unspecified K92.1 Melena E87.1 Hypo-osmolality and hyponatremia E87.5 Hyperkalemia Office Visit 12/06/2018 Stefanie Samuel. I77.819 Aortic ectasia, 4:20p [facility] unspecified site [facility] I10 Essential (primary) hypertension R60.9 Edema, unspecified I48.2 Chronic atrial fibrillation I45.19 Other right bundle-branch block R94.31 Abnormal electrocardiogram [ECG] [EKG] Z01.810 Encounter for preprocedural cardiovascular examination Office Visit 09/03/2018 3:00p [facility] Marcelle T84.84xA Pain due to at Stefanie Valentin M.D. 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, right hip Assessments Date Code Description Provider 02/24/2019 K92.2 Gastrointestinal hemorrhage, Tiffany Renae MD unspecified 02/24/2019 I10 Essential (primary) hypertension Tiffany Renae MD 02/24/2019 I48.91 Unspecified atrial fibrillation Tiffany Renae MD 02/24/2019 L03.116 Cellulitis of left lower limb Tiffany Renae MD 02/12/2019 K92.2 Gastrointestinal hemorrhage, Wen Arauz MD unspecified 02/12/2019 I50.30 Unspecified diastolic (congestive) Wen Arauz MD heart failure 02/12/2019 I48.91 Unspecified atrial fibrillation Wen Arauz MD 02/12/2019 I10 Essential (primary) hypertension Wen Arauz MD 02/12/2019 L03.116 Cellulitis of left lower limb Wen Arauz MD 02/11/2019 T39.395A Adverse effect of other nonsteroidal Wen Arauz MD anti-inflammatory drugs [Nsaid], initial encounter 02/11/2019 K92.2 Gastrointestinal hemorrhage, Wen Arauz MD unspecified 02/11/2019 I11.0 Hypertensive heart disease with heart Wen Arauz MD failure 02/11/2019 I50.30 Unspecified diastolic (congestive) Wen Arauz MD heart failure 02/11/2019 I48.91 Unspecified atrial fibrillation Wen Arauz MD 02/10/2019 T39.395A Adverse effect of other nonsteroidal Wen Arauz MD anti-inflammatory drugs [Nsaid], initial encounter 02/10/2019 K92.2 Gastrointestinal hemorrhage, Wen Arauz MD unspecified 02/10/2019 I48.91 Unspecified atrial fibrillation Wen Arauz MD 02/10/2019 I11.0 Hypertensive heart disease with heart Wen Arauz MD failure 02/10/2019 I50.30 Unspecified diastolic (congestive) Wen Arauz MD heart failure 02/09/2019 T39.395A Adverse effect of other nonsteroidal Wen Arauz MD anti-inflammatory drugs [Nsaid], initial encounter 02/09/2019 K92.2 Gastrointestinal hemorrhage, Wen Arauz MD unspecified 02/09/2019 I11.0 Hypertensive heart disease with heart Wen Arauz MD failure 02/09/2019 I50.30 Unspecified diastolic (congestive) Wen Arauz MD heart failure 02/09/2019 I48.91 Unspecified atrial fibrillation Wen Arauz MD 02/08/2019 K92.2 Gastrointestinal hemorrhage, Selin Colon M.D. unspecified 02/08/2019 D64.9 Anemia, unspecified Selin Colon M.D. 02/08/2019 K92.1 Melena Selin Colon M.D. 02/08/2019 E87.1 Hypo-osmolality and hyponatremia Selin Colon M.D. 02/08/2019 E87.5 Hyperkalemia Selin Colon M.D. 01/06/2019 R94.31 Abnormal electrocardiogram [ECG] Clif Belle M.D. [EKG] 01/06/2019 I10 Essential (primary) hypertension Srinivas Singh M.D. 01/06/2019 I48.2 Chronic atrial fibrillation Srinivas Singh M.D. 01/06/2019 I45.19 Other right bundle-branch block Srinivas Singh M.D. 01/06/2019 R94.31 Abnormal electrocardiogram [ECG] Srinivas Singh M.D. [EKG] 12/06/2018 I77.819 Aortic ectasia, unspecified site Srinivas Singh M.D. 12/06/2018 I10 Essential (primary) hypertension Srinivas Singh M.D. 12/06/2018 R60.9 Edema, unspecified Srinivas Singh M.D. 12/06/2018 I48.2 Chronic atrial fibrillation Srinivas Singh M.D. 12/06/2018 I45.19 Other right bundle-branch block Srinivas Singh M.D. 12/06/2018 R94.31 Abnormal electrocardiogram [ECG] Srinivas Singh M.D. [EKG] 12/06/2018 Z01.810 Encounter for preprocedural Srinivas Singh M.D. cardiovascular examination 09/03/2018 T84.84xA Pain due to internal orthopedic Marcelle Valentin M.D. prosth dev/grft, init 09/03/2018 M16.51 Unilateral post-traumatic Marcelle Valentin M.D. osteoarthritis, right hip 08/26/2018 I71.9 Aortic aneurysm of unspecified site, Srinivas Singh M.D. without rupture 08/26/2018 I71.9 Aortic aneurysm of unspecified site, Traveling ECHO 1 without rupture 08/26/2018 R60.9 Edema, unspecified Traveling ECHO 1 08/26/2018 I10 Essential (primary) hypertension Traveling ECHO 1 08/26/2018 I48.2 Chronic atrial fibrillation Traveling ECHO 1 Plan of Treatment Future Appointment(s):08/26/2019 2:00 pm - Sheila Menjivar MD at [facility] Internal Medicine - [facility]02/24/2019 - Tiffany Renae MDK92.2 Gastrointestinal hemorrhage, unspecifiedComments:Please make an appt for AWV in 6 monthsPlease sign DARLENE for former PCP and CardiologistPLease call for any [id number] Essential (primary) hypertensionComments:BP stableContinue to hold amlodipine and benazeprilContinue to monitor BP at home if ableI48.91 Unspecified atrial fibrillationComments:Continue to follow up with BaawalsubsU30.116 Cellulitis of left lower limbComments:Continue to monitor Call me for worsening redness or swelling to the leg Functional Status Description No Information Available Mental Status Description No Information Available Referrals Refer to Reason for Referral Status Appt Date [facility] post traumatic oa with broken hardware s/p Created cephalomedulary orif [address] [place] [address] [phone]
[2019-03-29 21:36] LABS: ABS Lymphocytes 0.3 10^3/ul (1.0-4.8); ABS Monocytes 0.9 10^3/ul (0-0.8); ABS Neutrophils 15.9 10^3/ul (1.5-7.7); Hematocrit 33 % (42-52); Hemoglobin 10.5 g/dL (14.0-18.0); Lymphocyte % 1.7 %; Mean Corpuscular HGB Conc 32 g/dL (31-36); Mean Corpuscular Hemoglobin 26 pg (27-31); Mean Corpuscular Volume 81 fL (80-94); Mean Platelet Volume 6.8 fL (7.4-10.4); Nucleated Red Blood Cells % 0.1; Platelet Count 203 10^3/uL (150-450); Red Blood Count 4.05 10^6 /uL (4.18-5.48); Red Cell Distribution Width 17 % (10-15); White Blood Count 17.1 10^3/uL (3.5-10.8)
[2019-03-29] MEDS ORDERED: Vancomycin(*) 1,500 MG in NS 0.9% 250 ML* 250 ML IVPB ONE (21:40)
[2019-03-29 21:54] LABS: ALT 83 U/L (7-52); AST 288 U/L (13-39); Albumin 3.9 g/dL (3.2-5.2); Albumin/Globulin Ratio 1.3 (1-3); Alkaline Phosphatase 51 U/L (34-104); Anion Gap 10 mmol/L (2-11); BUN/Creatinine Ratio 36.6 (8-20); Blood Urea Nitrogen 41 mg/dL (6-24); C Reactive Protein 137.12 mg/L (<8.01); CO2 Carbon Dioxide 24 mmol/L (22-32); Calcium 8.9 mg/dL (8.6-10.3); Chloride 104 mmol/L (101-111); EGFR African American 77.5 (>60); EGFR Non-African American 64.1 (>60); Glucose 124 mg/dL (70-100); Potassium 3.4 mmol/L (3.5-5.0); Sodium 138 mmol/L (135-145); Total Protein 6.9 g/dL (6.4-8.9)
[2019-03-29 21:58] LABS: Troponin I 0.21 ng/mL (<0.03)
[2019-03-29 22:07] LABS: Activated Partial Thrombo Time 32.4 seconds (26.0-38.0); INR 1.67 (0.82-1.09)
[2019-03-29 22:16] LABS: Creatine Kinase 18934 U/L (10-223)
[2019-03-29] MEDS: NS 0.9% 1000 ML** 3,000 ML IV ONE ×2 (22:28→23:50)
[2019-03-29] MEDS ORDERED: NS 0.9% 1000 ML** 1,000 ML IV SCH (23:00)
--- NOTE | 2019-03-29 23:00 | HP ---
History of Present Illness - History of Present Illness Reason for Visit: weakness History of Present Illness: 73 yo male iwth hx of CHF was brought in today for generalized weakness. Yesterday, he was found down by his . He apparently fell trying to get out of bed yesterday morning and was on the floor for 12 hours until his came back home from work. The ambulance came but pt did not want to go to the hospital. This morning he was unable to get up from the toilet because of his generalized weakness. Ambulance was called again and brought him in. He had ecchymotic areas with blisters on his arm and leg. He complained of right hip pain and back pain. He has worsening erythema on his left lower leg. - Past Medical History Cardiac: CAD, CHF, HTN, Hyperlipidemia - Past Surgical History Past Surgical History: Other - ORIF - Past Family History Family History: CAD, DM, Hyperlipidemia - Past Social History Smoke: No Alcohol: None Drugs: None Lives: With Family Review of Systems - Measurements Intake and Output: Intake and Output Last 24 Hours 03/27/19 03/28/19 03/29/19 03/30/19 06:59 06:59 06:59 06:59 Weight 254 lb - Review of Systems Constitutional Symptoms: Positive: Weakness, Fatigue, Fever, Unexplained Falls Negative: Weight Gain, Weight Loss, Night Sweats, Other Dermatology: Positive: Rash, Skin Lesions Negative: Normal, Cancer, Skin Lumps, Other HEENT: Negative: Normal, Change in Hearing, Vertigo, Dental Problems, Tinnitus, Sinus Problem, Other Eyes: Negative: Normal, Change in Vision, Double Vision, Eye Pain, Glaucoma, Cataract, Contacts or Glasses, Other Thyroid: Negative: Normal, Goiter, Thyroid Nodule, Cold Intolerance, Heat Intolerance , Sweatiness, Tremor, Frequent Defecation, Constipation, Palpitations, Primary Hypothyroidism, Primary Hyperthyroidism, Weight Loss, Weight Gain, Change in Skin/Hair, Change in Menstruation, Radiation Exposure, Other Pulmonary: Negative: Normal, Cough, Sputum, Hemoptysis, Wheezing, Respiratory Distress, Shortness of Breath, COPD, Asthma, Exercise Intolerance, Home Oxygen, Other Cardiology: Negative: Normal, Chest Pain, Shortness of Breath, Palpitations, Swelling of Ankles, Peripheral Vascular Dis, Edema, Faintness, Syncope, Claudication, Proximal NocturnalDyspnea, Orthopnoea, Other Gastroenterology: Negative: Normal, Abdominal Pain, Nausea, Vomiting, Anorexia, Indigestion, Difficulty Swallowing, Heartburn, Constipation, Diarrhea, Blood in Stools, Change in Bowel Habits, Haematemesis, Melena, Other Genital - Urinary: Negative: Normal, Dysuria, Hematuria, Polyuria, Nocturia, Other Musculoskeletal: Negative: Joint Pain, Joint Stiffness, Arthritis, Osteoporosis, Low Back Pain , Sciatica, Joint Deformities, Kyphoscoliosis, Other Endocrinology: Negative: Normal, Thyroid Problems, Adrenal Problems, Gonadal Problems, Family Hx Endocrine Disorders, Obesity, Diabetes Mellitus, Hyperglycemia, Hx Hypoglycemia, Diabetic Foot Ulcers, Calluses, Hirsutism, Menstrual Abnormalities , Polydipsia, Polyuria, Gonadal Problems, Gynecomastia, Pituitary disease, Other Hematologic/Lymphatic: Negative: Anemia, Easy Bruising, Hx Leukemia, Hx Lymphoma, Use of Anticoagulant, Use of Antiplatelet Drugs, Other Neurology: Negative: Normal, Headache, Migraines, Change in Vision, Diplopia, Dizziness , Change in Balancing, Change in Coordination, Change in Memory, Change in Speech, Change in Sphincter Function, Change in Walking, Numbness\Paresthesiae, Unexplained Weakness, Hx of Stroke\TIA, Hx of Seizures, Other Psychiatry: Negative: Normal, Depression, Anxiety, Depressed Mood, Anhedonia, Sexual Dysfunction, Weight Change, Guilt Feelings, Tearfulness, Unusual Fatigue, Unusual Anxiety, Suicidal Ideation, Hypomania, Eating Disorders, Other Objective Active Medications: Vancomycin HCl 1,500 mg/ (Sodium Chloride) 250 mls @ 166.667 mls/hr IVPB ONCE ONE; Protocol Stop: 03/29/19 23:09 Last Admin: 03/29/19 22:10 Dose: 166.667 mls/hr Sodium Chloride (Ns 0.9% 1000 Ml) 3,000 mls @ 1,000 mls/hr IV .PER RATE ONE Stop: 03/30/19 01:03 Last Admin: 03/29/19 22:28 Dose: 1,000 mls/hr Sodium Chloride (Ns 0.9% 1000 Ml) 1,000 mls @ 125 mls/hr IV Q8H WINNIE Levothyroxine Sodium (Synthroid Tab*) 88 mcg PO DAILY WINNIE Vital Signs - 8 hr 03/29/19 03/29/19 20:44 20:55 Temperature 99.2 F Pulse Rate 73 Respiratory 16 Rate Blood Pressure 123/57 (mmHg) O2 Sat by Pulse 95 97 Oximetry Oxygen Devices in Use Now: None, Nasal Cannula Appearance: unkempt Ears/Nose/Mouth/Throat: Mucous Membranes Moist Neck: NL Appearance and Movements; NL JVP, Trachea Midline Respiratory: Symmetrical Chest Expansion and Respiratory Effort, - - difficult to examine due to body habitus Cardiovascular: NL Sounds; No Murmurs; No JVD, - - 2+ edema B/L Lymphatic: No Cervical Adenopathy Skin: - - blisters on his R arm, multiple bruises, ecchymosis Neurological: Alert and Oriented x 3, - - generalized weakness Result Diagrams: 03/30/19 04:59 03/30/19 04:59 Assess/Plan/Problems-Billing Assessment: - Patient Problems (1) Falls Current Visit: Yes Status: Acute Comment: progressively have been getting weaker. He walks with a cane at home and now is unable to even lift himself up from seated position. This is likely because of an infection. Currently UA is pending. He does have this cellulitis of his left lower EXT. Also, pt was found down after falling from his bed. He was on the floor for 12 hours. Multiple ecchymotic areas iwth blisters. CK is elevated, will trend. LA is elevated, will trend. No signs of compartment for now CT lumbar and hip (2) DVT prophylaxis Current Visit: Yes Status: Acute Code(s): Z29.9 - ENCOUNTER FOR PROPHYLACTIC MEASURES, UNSPECIFIED SNOMED Code(s): 245507582 (3) Full code status Current Visit: Yes Status: Acute Code(s): Z78.9 - OTHER SPECIFIED HEALTH STATUS SNOMED Code(s): 674162415 (4) Atrial fibrillation Current Visit: No Status: Acute Code(s): I48.91 - UNSPECIFIED ATRIAL FIBRILLATION SNOMED Code(s): 38861829 Comment: on eliquis at home holding pending CT (5) Cellulitis Current Visit: No Status: Acute Code(s): L03.90 - CELLULITIS, UNSPECIFIED SNOMED Code(s): 123422860 Comment: ongoing skin infection for weeks. treated multiple times his left lower EXT is now erythematous and very tender. no visible open wounds. Blood cx, trend LA vanc and zosyn (6) Heart failure with preserved ejection fraction Current Visit: No Status: Acute Code(s): I50.30 - UNSPECIFIED DIASTOLIC ( CONGESTIVE) HEART FAILURE SNOMED Code(s): 951985405 Comment: pt gives hx of heart failure on lasix at home echo holding lasix in setting of infection (7) Hypertension Current Visit: No Status: Acute Code(s): I10 - ESSENTIAL (PRIMARY) HYPERTENSION SNOMED Code(s): 53086182 Comment: will hold home meds in setting of infection (8) XU (acute kidney injury) Current Visit: Yes Status: Acute Code(s): N17.9 - ACUTE KIDNEY FAILURE, UNSPECIFIED SNOMED Code(s): 39123409 Comment: IVF
[2019-03-29] MEDS ORDERED: Vancomycin per Pharmacy* NOTE FOLLOW UP SCH (23:45)
[2019-03-29] MEDS ORDERED: Zosyn per Pharmacy* NOTE FOLLOW UP SCH (23:45)
[2019-03-29] MEDS ORDERED: Acetaminophen TAB* 325 MG PO ONE (23:55)
[2019-03-29 23:56] LABS: Urine Appearance Turbid; Urine Bilirubin Negative (Negative); Urine Blood 3+ (Negative); Urine Color Amber; Urine Glucose Negative (Negative); Urine Ketones Negative (Negative); Urine Nitrite Negative (Negative); Urine Protein 2+(100 mg/dL) (Negative); Urine Specific Gravity 1.015 (1.010-1.030); Urine Urobilinogen Negative (Negative)
[2019-03-30 00:10] LABS: Urine Bacteria 3+ (Absent); Urine Red Blood Cell 3+(>10/hpf) (Absent); Urine White Blood Cell 3+(>20/hpf) (Absent)
[2019-03-30] MEDS: NS 0.9% 1000 ML** 3,000 ML IV ONE (00:28)
[2019-03-30] MEDS ORDERED: ZOSYN 3.375 GM x ONE DOSE over 30 miuntes IVPB ×2 (02:00)
[2019-03-30 05:05] LABS: ABS Lymphocytes 0.3 10^3/ul (1.0-4.8); ABS Monocytes 0.8 10^3/ul (0-0.8); ABS Neutrophils 11.1 10^3/ul (1.5-7.7); Eosinophil % 0.1 %; Hematocrit 29 % (42-52); Hemoglobin 9.4 g/dL (14.0-18.0); Lymphocyte % 2.5 %; Mean Corpuscular HGB Conc 32 g/dL (31-36); Mean Corpuscular Hemoglobin 26 pg (27-31); Mean Corpuscular Volume 81 fL (80-94); Platelet Count 168 10^3/uL (150-450); Red Blood Count 3.58 10^6 /uL (4.18-5.48); Red Cell Distribution Width 17 % (10-15); White Blood Count 12.2 10^3/uL (3.5-10.8)
[2019-03-30 05:14] LABS: INR 1.86 (0.82-1.09)
[2019-03-30 05:26] LABS: BUN/Creatinine Ratio 33.3 (8-20); Calcium 7.8 mg/dL (8.6-10.3); EGFR African American 64.2 (>60); Potassium 3.1 mmol/L (3.5-5.0)
[2019-03-30] MEDS: Levothyroxine TAB* 88 MCG TAB PO SCH (05:28)
[2019-03-30] MEDS ORDERED: ZOSYN 3.375 GM Q8H per EXTENDED INFUSION IVPB SCH ×2 (06:00)
[2019-03-30] MEDS ORDERED: Vancomycin(*) 1,000 MG in NS 0.9% 250 ML* 250 ML IV SCH ×2 (06:00→19:30)
[2019-03-30] MEDS: Acetaminophen TAB* 325 MG PO PRN ×2 (11:10→19:21)
[2019-03-30] MEDS ORDERED: ZOSYN 3.375 GM Q6H - Intermittant 30 min Infusion IVPB SCH ×2 (11:30)
--- NOTE | 2019-03-30 11:39 | ECHO ---
*[facility]* [place] [address] Fax #: [phone] Transthoracic Echocardiogram Patient: Rafael Curran : 1945 Study Date: 03/30/2019 Age: 73 Gender: M HR: 88 bpm Height: 70 in /177.8 cm BSA: 2.31 m^2 Weight: 253.5 lb /115.2 kg BMI: 36.4 kg/m^2 *Prevention Coordinator: * Tatyana Kerns *Referring Physician: * Krystal Clemons *Reading Physician: * Tawnya Magaña MD Indications: Congestive Heart Failure. History: Atrial fibrillation. Coronary artery disease. Congestive heart failure. Risk factors: Hypertension. Dyslipidemia. Conclusions Summary: - Left ventricle: The cavity size is normal. Wall thickness is mildly increased. Systolic function is normal. The estimated ejection fraction is 50-55%. - Right ventricle: The cavity size is dilated. Systolic function is low normal. - Aortic valve: Cusp separation is mildly reduced. There is no evidence of stenosis. - Tricuspid valve: There is moderate regurgitation. - Pulmonary arteries: Systolic pressure is mildly increased, estimated to be 40 mm Hg. - No prior echocardiogram to compare. Study data: Transthoracic echocardiogram. Procedure: Transthoracic echocardiography was performed. Image quality was good. Complete 2D, spectral Doppler, and color flow Doppler. Location: Bedside. Patient status: Inpatient. Patient room number: 443. Findings Left ventricle: The cavity size is normal. Wall thickness is mildly increased. Systolic function is normal. The estimated ejection fraction is 50-55%. Wall motion is normal; there are no regional wall motion abnormalities. Left ventricular diastolic function parameters are indeterminate. Right ventricle: The cavity size is dilated. Systolic function is low normal. Left atrium: The atrium is severely dilated. Right atrium: The atrium is dilated. Mitral valve: The leaflets are normal thickness. There is no evidence of stenosis. There is trace regurgitation. Aortic valve: The valve is trileaflet. The leaflets are normal thickness and mildly calcified. Cusp separation is mildly reduced. There is no evidence of stenosis. There is no significant regurgitation. Tricuspid valve: The leaflets are normal thickness. There is no evidence of stenosis. There is moderate regurgitation. Pulmonic valve: The leaflets are normal thickness. There is no evidence of stenosis. There is trace regurgitation. Aorta: The aortic root appears normal. The aortic arch appears normal. Pericardium: There is no significant pericardial effusion. Pulmonary arteries: Systolic pressure is mildly increased, estimated to be 40 mm Hg. Systemic veins: Inferior vena cava: The vessel is moderately dilated. Measurements Left ventricle Value Ref Aortic valve Value Ref SENIA, LAX 5.3 cm 4.2 - Peak v, S 1.31 m/sec ----- 5.8 VTI, S 27.3 cm ----- ESD, LAX 3.2 cm 2.5 - Mean grad, S 4.0 mm Hg ----- 4.0 Peak grad, S 7.0 mm Hg ----- FS, LAX 39 % 25 - 43 HALIMA, VTI 2.63 cm^2 ----- PW, ED, LAX (H) 1.3 cm 0.6 - HALIMA, Vmax 2.47 cm^2 ----- 1.0 E', lat kiko, TDI 17.2 cm/sec >=10.0 Mitral valve Value Ref E/e', lat kiko, TDI 6 -------- Peak E 1.05 m/sec -- --- E', med kiko, TDI 11.1 cm/sec >=7.0 Peak A 0.01 m/sec ----- E/e', med kiko, TDI 9 -------- Decel time 264 ms -- --- E', avg, TDI 14.2 cm/sec -------- Peak grad, D 4.4 mm Hg -- --- E/e', avg, TDI 7 <=14 Peak E/A ratio 150 ----- LVOT Value Ref Pulmonic valve Value Ref Diam, S 2.20 cm -------- Peak v, S 0.84 m/sec ----- Area 3.8 cm^2 -------- Peak grad, S 3.0 mm Hg ----- Peak anjana, S 0.85 m/sec -------- Mean grad, S 2 mm Hg -------- Tricuspid valve Value Ref SV 71 ml -------- TR peak v 2.65 m/sec <=2. 8 SV/bsa 31 ml/m^2 -------- Peak RV-RA grad, S 28 mm Hg ----- Max TR anjana 3.04 m/sec ----- Ventricular septum Value Ref IVS, ED (H) 1.4 cm 0.6 - Aortic root Value Ref 1.0 Root diam 3.6 cm <4.4 Right ventricle Value Ref Ascending aorta Value Ref SENIA, LAX 3.8 cm -------- AAo AP diam, S 3.5 cm ----- SENIA minor ax, A4C (H) 4.5 cm 1.9 - AAo AP diam/bsa, S 1.5 cm/m^2 ----- mid 3.5 Aortic arch Value Ref Left atrium Value Ref Arch diam 3.0 cm ----- ML dim, A4C 6.7 cm -------- SI dim, A4C 7.0 cm -------- Decending aorta Value Ref Vol/bsa, ES, 1-p (H) 67 ml/m^2 12 - 37 Elissa peak anjana 0.58 m/sec ----- A4C Vol/bsa, ES, A/L (H) 71 ml/m^2 16 - 34 Inferior vena cava Value Ref Diam 3.7 cm ----- Right atrium Value Ref SI dim, ES (H) 8.2 cm 3.4 - 5.3 ML dim, ES, A4C (H) 4.6 cm 2.6 - 4.4 SI dim, ES, A4C (H) 8.2 cm 3.4 - 5.3 SI dim/bsa, ES, (H) 3.6 cm/m^2 1.8 - A4C 3.0 Legend: (L) and (H) siri values outside specified reference range. Prepared and electronically signed by Tawnya Magaña MD 03/30/2019 11:38
--- NOTE | 2019-03-30 15:23 | PN ---
Subjective Date of Service: 03/30/19 Interval History: Mr. Curran is feeling a bit better today. He is very distressed from being down on the floor at home and would like to avoid any further falls. Unclear if he would actually be agreeable to rehab, however. Denies CP or SOB. He notes that his BLE edema is at baseline and this has been present for greater than 20 years. No significant pain to the right hip, but he is generally sore all over. No concerns from nursing. Family History: Unchanged from Admission Social History: Unchanged from Admission Past Medical History: Unchanged from Admission Objective Active Medications: Acetaminophen (Tylenol Tab*) 650 mg PO Q4H PRN PAIN - MILD Apixaban (Eliquis*) 5 mg PO BID WINNIE Sodium Chloride (Ns 0.9% 1000 Ml) 1,000 mls @ 125 mls/hr IV PER RATE WINNIE Piperacillin Sod/Tazobactam (Sod 3.375 gm/ Sodium Chloride) 100 mls @ 200 mls/ hr IVPB Q6H WINNIE Vancomycin HCl 1,000 mg/ (Sodium Chloride) 250 mls @ 166.667 mls/hr IV 0730, 1930 WINNIE Lactobacillus Rhamnosus (Lactobacillus Acidophilus*) 1 tab PO DAILY WINNIE Levothyroxine Sodium (Synthroid Tab*) 88 mcg PO 0600 WINNIE Multivitamins/Minerals (Theragran/Minerals Tab*) 1 tab PO DAILY [facility] Vital Signs - 8 hr 03/30/19 03/30/19 08:00 11:15 Temperature 98.5 F Pulse Rate 77 Respiratory 20 20 Rate Blood Pressure 117/54 (mmHg) O2 Sat by Pulse 98 100 Oximetry Oxygen Devices in Use Now: None Appearance: Elderly male lying in bed in NAD Ears/Nose/Mouth/Throat: Mucous Membranes Moist Neck: NL Appearance and Movements; NL JVP, Trachea Midline Respiratory: Symmetrical Chest Expansion and Respiratory Effort, Clear to Auscultation Cardiovascular: NL Sounds; No Murmurs; No JVD Abdominal: NL Sounds; No Tenderness; No Distention Extremities: - - +3 pitting BLE Skin: - - Large intact bulla to left hip Neurological: Alert and Oriented x 3 Lines/Tubes/Other Access: Clean, Dry and Intact Peripheral IV Nutrition: Taking PO's Result Diagrams: 03/30/19 04:59 03/30/19 04:59 Assess/Plan/Problems-Billing Assessment: Mr. Curran is a 73 yo M with PMH of CHF, CAD, HTN, HLD; who presented to the ED after being found down at home and was found to have rhabdo with XU and concern for right hip hardware fracture. - Patient Problems (1) Rhabdomyolysis Code(s): M62.82 - RHABDOMYOLYSIS Comment: - Mechanical fall at home, down on the floor for approx 12 hours - CK 18,000 on admission, now trending down - Continue agressive IVF, but will need to monitor closely d/t history of CHF; anticipate he will need some diuresis after CK has come down (2) XU (acute kidney injury) Code(s): N17.9 - ACUTE KIDNEY FAILURE, UNSPECIFIED Comment: - Secondary to rhabdo - Continue IVF as above (3) Left leg cellulitis Code(s): L03.116 - CELLULITIS OF LEFT LOWER LIMB Comment: - Patient reported worsening erythema to lower leg on admission - Previously treated with clinda in January - Leukocytosis present, but no evidence of sepsis - Change to cefazolin; d/c vanco and Zosyn d/t bump in creatinine (4) Hardware failure Comment: - Known chronically fractured right femoral intramedullary patience - CT on admission showing increased displacement of fragments since prior study - No increase in pain or ROM per patient - Follows with Dr. Valentin and was referred to [facility]; patient reports they plan to operate in September - Spoke with Ortho business consultant who advised that there would not be any intervention here - WBAT RLE and okay to work with PT/OT (5) Elevated lactic acid level Code(s): R79.89 - OTHER SPECIFIED ABNORMAL FINDINGS OF BLOOD CHEMISTRY Comment : - Resolved with IVF - Secondary to rhabdo, NOT sepsis (6) Heart failure with preserved ejection fraction Code(s): I50.30 - UNSPECIFIED DIASTOLIC (CONGESTIVE) HEART FAILURE Comment: - Significant BLE edema, but patient reports this is at baseline - Echo shows EF 50-55%, no significant valvular abnormalities - Hold furosemide d/t XU and rhabdo, though anticipate he will need diuresis after rhabdo/XU have resolved (7) Atrial fibrillation Code(s): I48.91 - UNSPECIFIED ATRIAL FIBRILLATION Comment: - Rate controlled without medication - Continue Eliquis (8) Hypertension Code(s): I10 - ESSENTIAL (PRIMARY) HYPERTENSION Comment: - Normotensive - Hold Dyazide and furosemide (9) Hypothyroidism Code(s): E03.9 - HYPOTHYROIDISM, UNSPECIFIED Comment: - Continue levothyroxine (10) DVT prophylaxis Code(s): Z29.9 - ENCOUNTER FOR PROPHYLACTIC MEASURES, UNSPECIFIED Comment: - Eliquis (11) Full code status Code(s): Z78.9 - OTHER SPECIFIED HEALTH STATUS Comment: Status and Disposition: Inpatient. Anticipate d/c home vs [facility] when medically stable, timeframe TBD by clinical course. Attending: Cathryn Townsend
[2019-03-30] MEDS ORDERED: Potassium Chlor TAB* 20 MEQ TAB.ER PO ONE (15:43)
[2019-03-30] MEDS: NS 0.9% 1000 ML** 1,000 ML IV SCH (16:35)
[2019-03-30] MEDS: ceFAZolin 1 GM ADVAN(*) 1 GM in NS 0.9% 50 ML* 50 ML IVPB SCH ×2 (16:35→23:50)
[2019-03-30] MEDS: Apixaban* 5 MG TAB PO SCH (20:36)
[2019-03-31] MEDS: NS 0.9% 1000 ML** 1,000 ML IV SCH ×3 (05:12→23:13)
[2019-03-31 05:13] LABS: ABS Eosinophils 0.3 10^3/ul (0-0.6); ABS Lymphocytes 0.4 10^3/ul (1.0-4.8); ABS Monocytes 0.8 10^3/ul (0-0.8); ABS Neutrophils 7.5 10^3/ul (1.5-7.7); Eosinophil % 3.3 %; Hematocrit 28 % (42-52); Hemoglobin 9.3 g/dL (14.0-18.0); Lymphocyte % 4.1 %; Mean Corpuscular HGB Conc 33 g/dL (31-36); Mean Corpuscular Hemoglobin 27 pg (27-31); Mean Corpuscular Volume 80 fL (80-94); Mean Platelet Volume 6.9 fL (7.4-10.4); Platelet Count 171 10^3/uL (150-450); Red Cell Distribution Width 17 % (10-15); White Blood Count 8.9 10^3/uL (3.5-10.8)
[2019-03-31] MEDS: Levothyroxine TAB* 88 MCG TAB PO SCH (05:14)
[2019-03-31 05:30] LABS: Albumin 3.2 g/dL (3.2-5.2); Albumin/Globulin Ratio 1.2 (1-3); BUN/Creatinine Ratio 38.1 (8-20); Calcium 7.8 mg/dL (8.6-10.3); EGFR African American 83.5 (>60); Globulin 2.7 g/dL (2-4); Potassium 3.2 mmol/L (3.5-5.0); Total Bilirubin 0.4 mg/dL (0.2-1.0); Total Protein 5.9 g/dL (6.4-8.9)
[2019-03-31] MEDS ORDERED: Potassium Chlor TAB* 20 MEQ TAB.ER PO ONE (07:23)
[2019-03-31] MEDS ORDERED: Vancomycin Trough Check NOTE FOLLOW UP ONE (07:30)
[2019-03-31] MEDS: ceFAZolin 1 GM ADVAN(*) 1 GM in NS 0.9% 50 ML* 50 ML IVPB SCH ×3 (07:36→23:12)
[2019-03-31] MEDS: Apixaban* 5 MG TAB PO SCH ×2 (08:47→20:30)
[2019-03-31] MEDS: Multivitamins/Minerals TAB PO SCH (08:47)
[2019-03-31] MEDS: Lactobacillus Acidophilus* 1 TAB PO SCH (08:47)
[2019-03-31] MEDS: Acetaminophen TAB* 325 MG PO PRN ×2 (12:29→21:43)
--- NOTE | 2019-03-31 13:53 | PN ---
Subjective Date of Service: 03/31/19 Interval History: Mr. Curran is feeling significantly better today. Still having some generalized pain, but this has improved. He is seen sitting up in the chair and was happy to have gotten out of bed today. Denies CP, SOB, N/V. Agreeable to rehab if necessary. No concerns from nursing. Family History: Unchanged from Admission Social History: Unchanged from Admission Past Medical History: Unchanged from Admission Objective Active Medications: Acetaminophen (Tylenol Tab*) 650 mg PO Q4H PRN PAIN - MILD Apixaban (Eliquis*) 5 mg PO BID WINNIE Cefazolin Sodium 1 gm/ Sodium (Chloride) 50 mls @ 200 mls/hr IVPB Q8H WINNIE Sodium Chloride (Ns 0.9% 1000 Ml) 1,000 mls @ 75 mls/hr IV PER RATE WINNIE Lactobacillus Rhamnosus (Lactobacillus Acidophilus*) 1 tab PO DAILY WINNIE Levothyroxine Sodium (Synthroid Tab*) 88 mcg PO 0600 WINNIE Multivitamins/Minerals (Theragran/Minerals Tab*) 1 tab PO DAILY WINNIE Vital Signs - 8 hr 03/31/19 03/31/19 03/31/19 06:55 07:15 11:15 Temperature 98.1 F 97.9 F Pulse Rate 82 72 Respiratory 20 20 22 Rate Blood Pressure 133/64 133/70 (mmHg) O2 Sat by Pulse 98 99 99 Oximetry Oxygen Devices in Use Now: None Appearance: Elderly male sitting in chair in NAD Ears/Nose/Mouth/Throat: Mucous Membranes Moist Neck: NL Appearance and Movements; NL JVP, Trachea Midline Respiratory: Symmetrical Chest Expansion and Respiratory Effort, Clear to Auscultation Cardiovascular: NL Sounds; No Murmurs; No JVD, RRR Abdominal: NL Sounds; No Tenderness; No Distention Extremities: - - +3 pitting BLE Skin: - - Erythema LLE, slightly improved Neurological: Alert and Oriented x 3 Lines/Tubes/Other Access: Clean, Dry and Intact Peripheral IV Nutrition: Taking PO's Result Diagrams: 03/31/19 05:02 03/31/19 05:02 Assess/Plan/Problems-Billing Assessment: Mr. Curran is a 73 yo M with PMH of CHF, CAD, HTN, HLD; who presented to the ED after being found down at home and was found to have rhabdo with XU and concern for right hip hardware fracture. - Patient Problems (1) Rhabdomyolysis Code(s): M62.82 - RHABDOMYOLYSIS Comment: - Mechanical fall at home, down on the floor for approx 12 hours - CK 18,000 on admission, now trending down - Recheck CK again this afternoon - Continue agressive IVF, but will need to monitor closely d/t history of CHF; anticipate he will need some diuresis after CK has come down (2) UTI (urinary tract infection) Comment: - Urine culture growing E. coli, sensitivities pending - Continue cefazolin (3) Left leg cellulitis Code(s): L03.116 - CELLULITIS OF LEFT LOWER LIMB Comment: - Patient reported worsening erythema to lower leg on admission - Previously treated with clinda in January - Leukocytosis present, but no evidence of sepsis - Continue cefazolin (4) XU (acute kidney injury) Code(s): N17.9 - ACUTE KIDNEY FAILURE, UNSPECIFIED Comment: - Resolved - Secondary to rhabdo (5) Hardware failure Comment: - Known chronically fractured right femoral intramedullary patience - CT on admission showing increased displacement of fragments since prior study - No increase in pain or ROM per patient - Follows with Dr. Valentin and was referred to [facility]; patient reports they plan to operate in September - Spoke with Ortho mining professionals who advised that there would not be any intervention here - WBAT RLE and okay to work with PT/OT (6) Elevated lactic acid level Code(s): R79.89 - OTHER SPECIFIED ABNORMAL FINDINGS OF BLOOD CHEMISTRY Comment : - Resolved with IVF - Secondary to rhabdo, NOT sepsis (7) Heart failure with preserved ejection fraction Code(s): I50.30 - UNSPECIFIED DIASTOLIC (CONGESTIVE) HEART FAILURE Comment: - Significant BLE edema, but patient reports this is at baseline - Echo shows EF 50-55%, no significant valvular abnormalities - Hold furosemide d/t XU and rhabdo, though anticipate he will need diuresis after rhabdo/XU have resolved (8) Atrial fibrillation Code(s): I48.91 - UNSPECIFIED ATRIAL FIBRILLATION Comment: - Rate controlled without medication - Continue Eliquis (9) Hypertension Code(s): I10 - ESSENTIAL (PRIMARY) HYPERTENSION Comment: - Normotensive - Hold Dyazide and furosemide (10) Hypothyroidism Code(s): E03.9 - HYPOTHYROIDISM, UNSPECIFIED Comment: - Continue levothyroxine (11) DVT prophylaxis Code(s): Z29.9 - ENCOUNTER FOR PROPHYLACTIC MEASURES, UNSPECIFIED Comment: - Eliquis (12) Full code status Code(s): Z78.9 - OTHER SPECIFIED HEALTH STATUS Comment: Status and Disposition: Inpatient. Anticipate d/c to [facility] when medically stable, timeframe TBD by clinical course. Attending: Cathryn Townsend
[2019-04-01] MEDS: Levothyroxine TAB* 88 MCG TAB PO SCH (05:52)
[2019-04-01 07:26] LABS: Anion Gap 6 mmol/L (2-11); BUN/Creatinine Ratio 41.4 (8-20); Blood Urea Nitrogen 29 mg/dL (6-24); CO2 Carbon Dioxide 21 mmol/L (22-32); Calcium 8.4 mg/dL (8.6-10.3); Chloride 111 mmol/L (101-111); EGFR African American 133.4 (>60); EGFR Non-African American 110.2 (>60); Glucose 137 mg/dL (70-100); Magnesium 2.3 mg/dL (1.9-2.7); Potassium 3.7 mmol/L (3.5-5.0); Sodium 138 mmol/L (135-145)
[2019-04-01] MEDS: ceFAZolin 1 GM ADVAN(*) 1 GM in NS 0.9% 50 ML* 50 ML IVPB SCH ×2 (07:40→16:05)
[2019-04-01 07:51] LABS: Creatine Kinase 5150 U/L (10-223)
[2019-04-01 08:16] LABS: Troponin I 0.05 ng/mL (<0.03)
[2019-04-01] MEDS: Multivitamins/Minerals TAB PO SCH (08:47)
[2019-04-01] MEDS: Apixaban* 5 MG TAB PO SCH ×2 (08:47→20:54)
[2019-04-01] MEDS: Lactobacillus Acidophilus* 1 TAB PO SCH (08:47)
--- NOTE | 2019-04-01 10:48 | PN ---
Subjective Date of Service: 04/01/19 Interval History: Patient c/o chronic low back pain which is not worse than his usual. He asks about possibility of getting new JETT hose and is agreeable to using RED wraps while in hospital considering worsening swelling. Denies chest pain, difficulty breathing, fever/chills, abd pain. Family History: Unchanged from Admission Social History: Unchanged from Admission Past Medical History: Unchanged from Admission Objective Active Medications: Acetaminophen (Tylenol Tab*) 650 mg PO Q4H PRN PRN Reason: PAIN - MILD Last Admin: 03/31/19 21:43 Dose: 650 mg Apixaban (Eliquis*) 5 mg PO BID [facility] Last Admin: 04/01/19 08:47 Dose: 5 mg Cefazolin Sodium 1 gm/ Sodium (Chloride) 50 mls @ 200 mls/hr IVPB Q8H [facility] Last Admin: 04/01/19 07:40 Dose: 200 mls/hr Lactobacillus Rhamnosus (Lactobacillus Acidophilus*) 1 tab PO DAILY [facility] Last Admin: 04/01/19 08:47 Dose: 1 tab Levothyroxine Sodium (Synthroid Tab*) 88 mcg PO 0600 [facility] Last Admin: 04/01/19 05:52 Dose: 88 mcg Multivitamins/Minerals (Theragran/Minerals Tab*) 1 tab PO DAILY [facility] Last Admin: 04/01/19 08:47 Dose: 1 tab Vital Signs - 8 hr 04/01/19 04/01/19 04/01/19 03:01 07:15 08:00 Temperature 97.6 F 98.2 F Pulse Rate 76 72 Respiratory 20 20 20 Rate Blood Pressure 125/67 141/67 (mmHg) O2 Sat by Pulse 99 99 99 Oximetry Oxygen Devices in Use Now: None Appearance: Obese elderly white male, laying upright in bed, appearing comfortable and in NAD Eyes: No Scleral Icterus, - - PERRL Neck: Trachea Midline Respiratory: Symmetrical Chest Expansion and Respiratory Effort, Clear to Auscultation Cardiovascular: NL Sounds; No Murmurs; No JVD, RRR Abdominal: - - abd soft, nontender, nondistended Extremities: No Clubbing, Cyanosis, - - +3 pitting edema in bilateral LEs Skin: - - small bullae scattered throughout bilateral LEs; evidence of ruptured large bullous to left hip, small guido Result Diagrams: 03/31/19 05:02 04/01/19 06:26 Microbiology and Other Data: Microbiology 03/29/19 23:46 Urine Culture - Preliminary Urine Escherichia Coli 03/29/19 20:40 Aerobic Blood Culture - Preliminary Blood Venous No Growth Day 2 Anaerobic Blood Culture - Preliminary No Growth Day 2 03/29/19 21:27 Aerobic Blood Culture - Preliminary Blood Venous No Growth Day 2 Anaerobic Blood Culture - Preliminary No Growth Day 2 Assess/Plan/Problems-Billing Assessment: Mr. Curran is a 73 yo M with PMH of CHF, CAD, HTN, HLD; who presented to the ED after being found down at home and was found to have rhabdo with XU and concern for right hip hardware fracture. - Patient Problems (1) Rhabdomyolysis Current Visit: Yes Status: Acute Code(s): M62.82 - RHABDOMYOLYSIS SNOMED Code(s): 069442565 Comment: - Mechanical fall at home, down on the floor for approx 12 hours - CK 18,934 on admission, now trending down and is at ~5100 - CK is significantly improved and will d/c IVF considering HFpEF and significant LE edema - XU resolved (2) XU (acute kidney injury) Current Visit: Yes Status: Acute Code(s): N17.9 - ACUTE KIDNEY FAILURE, UNSPECIFIED SNOMED Code(s): 45576584 Comment: - Resolved - Secondary to rhabdo (3) Bilateral lower extremity edema Current Visit: Yes Status: Acute Code(s): R60.0 - LOCALIZED EDEMA SNOMED Code(s): 792330919 Comment: -related to venous insufficiency and HFpEF -likely minimally worsened from baseline due to IVF to treat rhabdo and XU -ordered RED wraps and leg levation, restarting home diuretics (4) Heart failure with preserved ejection fraction Current Visit: No Status: Acute Code(s): I50.30 - UNSPECIFIED DIASTOLIC ( CONGESTIVE) HEART FAILURE SNOMED Code(s): 121686537 Comment: - BLE edema as above - Echo shows EF 50-55%, no significant valvular abnormalities - Restarting home dyazide and furosemide tomorrow AM (5) Left leg cellulitis Current Visit: Yes Status: Acute Code(s): L03.116 - CELLULITIS OF LEFT LOWER LIMB SNOMED Code(s): 883264643 Comment: - Patient reported worsening erythema to lower leg on admission. Patient does have chronic LE erythema d/t venous insufficiency - Previously treated with clinda in January - Leukocytosis present, but no evidence of sepsis - Continue cefazolin (6) UTI (urinary tract infection) Current Visit: Yes Status: Acute Comment: - Urine culture growing E. coli, sensitive to cephalosporins - Continue cefazolin - Afebrile, leukocytosis resolved (7) Atrial fibrillation Current Visit: No Status: Acute Code(s): I48.91 - UNSPECIFIED ATRIAL FIBRILLATION SNOMED Code(s): 91202502 Comment: - Rate controlled without medication - Continue Eliquis (8) Hypothyroidism Current Visit: Yes Status: Acute Code(s): E03.9 - HYPOTHYROIDISM, UNSPECIFIED SNOMED Code(s): 01537122 Comment: - Continue levothyroxine (9) Hardware failure Current Visit: Yes Status: Acute Code(s): TDQ3587 - SNOMED Code(s): 922104557 Comment: - Known chronically fractured right femoral intramedullary patience - CT on admission showing increased displacement of fragments since prior study - No increase in pain or ROM per patient - Follows with Dr. Valentin and was referred to [facility]; patient reports they plan to operate in September - Spoke with Ortho preparation supervisor who advised that there would not be any intervention here - WBAT RLE and okay to work with PT/OT (10) Hypertension Current Visit: No Status: Acute Code(s): I10 - ESSENTIAL (PRIMARY) HYPERTENSION SNOMED Code(s): 28561711 Comment: - Normotensive - Restarting Dyazide and furosemide as XU resolved (11) Falls Current Visit: Yes Status: Acute Comment: -mechanical fall at home -PT recommends [facility] at SNF and patient agreeable, pending (12) Elevated lactic acid level Current Visit: Yes Status: Acute Code(s): R79.89 - OTHER SPECIFIED ABNORMAL FINDINGS OF BLOOD CHEMISTRY SNOMED Code(s): 9685599 Comment: - Resolved with IVF - Secondary to rhabdo, NOT sepsis (13) Elevated troponin Current Visit: Yes Status: Acute Code(s): R79.89 - OTHER SPECIFIED ABNORMAL FINDINGS OF BLOOD CHEMISTRY SNOMED Code(s): 538887234 Comment: -elevated at admission to 0.21, has since downtrended -no EKG changes -likely ischemic demand in setting of acute infection (14) DVT prophylaxis Current Visit: Yes Status: Acute Code(s): Z29.9 - ENCOUNTER FOR PROPHYLACTIC MEASURES, UNSPECIFIED SNOMED Code(s): 638465280 Comment: - Kayleen (15) Full code status Current Visit: Yes Status: Acute Code(s): Z78.9 - OTHER SPECIFIED HEALTH STATUS SNOMED Code(s): 033883425 Comment: Status and Disposition: Inpatient. Anticipate d/c to [facility] when medically stable, timeframe TBD by clinical course.
[2019-04-01] MEDS: Acetaminophen TAB* 325 MG PO PRN ×2 (16:06→20:55)
[2019-04-01] MEDS: Potassium Chlor TAB* 20 MEQ TAB.ER PO SCH (20:55)
[2019-04-02] MEDS: ceFAZolin 1 GM ADVAN(*) 1 GM in NS 0.9% 50 ML* 50 ML IVPB SCH ×3 (00:17→15:16)
[2019-04-02] MEDS: Levothyroxine TAB* 88 MCG TAB PO SCH (05:40)
[2019-04-02] MEDS: Potassium Chlor TAB* 20 MEQ TAB.ER PO SCH ×2 (08:31→20:50)
[2019-04-02] MEDS: Lactobacillus Acidophilus* 1 TAB PO SCH (08:31)
[2019-04-02] MEDS: Furosemide TAB* 40 MG PO SCH (08:32)
[2019-04-02] MEDS: Multivitamins/Minerals TAB PO SCH (08:32)
[2019-04-02] MEDS: Apixaban* 5 MG TAB PO SCH ×2 (08:32→20:51)
[2019-04-02] MEDS ORDERED: Triamterene/HCTZ 37.5-25 MG* CAP PO SCH (09:00)
--- NOTE | 2019-04-02 11:00 | PN ---
Subjective Date of Service: 04/02/19 Interval History: Nursing alerts me to concern of LUE edema. Started elevating and patient confirms swelling has already improved. No IV to LUE. Patient denies pain in arm, fever/chills, chest pain, difficulty breathing, abd pain. Patient declines medication changes and wishes to be on his home medications. Also declining incentive spirometer. Family History: Unchanged from Admission Social History: Unchanged from Admission Past Medical History: Findings - outpatient EMR reviewed, no hx of CAD. Had normal stress test in Dec 2018 Objective Active Medications: Acetaminophen (Tylenol Tab*) 650 mg PO Q4H PRN PRN Reason: PAIN - MILD Last Admin: 04/01/19 20:55 Dose: 650 mg Apixaban (Eliquis*) 5 mg PO BID [facility] Last Admin: 04/02/19 08:32 Dose: 5 mg Furosemide (Lasix Tab*) 80 mg PO QAM [facility] Last Admin: 04/02/19 08:32 Dose: 80 mg Cefazolin Sodium 1 gm/ Sodium (Chloride) 50 mls @ 200 mls/hr IVPB Q8H [facility] Last Admin: 04/02/19 08:32 Dose: 200 mls/hr Lactobacillus Rhamnosus (Lactobacillus Acidophilus*) 1 tab PO DAILY [facility] Last Admin: 04/02/19 08:31 Dose: 1 tab Levothyroxine Sodium (Synthroid Tab*) 88 mcg PO 0600 [facility] Last Admin: 04/02/19 05:40 Dose: 88 mcg Lisinopril (Prinivil Tab*) 5 mg PO DAILY [facility] Multivitamins/Minerals (Theragran/Minerals Tab*) 1 tab PO DAILY [facility] Last Admin: 04/02/19 08:32 Dose: 1 tab Potassium Chloride (Klor Con Er Tab*) 40 meq PO BID [facility] Last Admin: 04/02/19 08:31 Dose: 40 meq Triamterene (Dyrenium Cap*) 100 mg PO BID [facility] Vital Signs - 8 hr 04/02/19 04/02/19 03:33 07:15 Temperature 97.8 F 97.7 F Pulse Rate 70 62 Respiratory 16 16 Rate Blood Pressure 148/85 136/61 (mmHg) O2 Sat by Pulse 98 99 Oximetry Oxygen Devices in Use Now: None Appearance: Obese, elderly white male, sitting upright in bed, appearing comfortable and in NAD Eyes: No Scleral Icterus, - - PERRL Ears/Nose/Mouth/Throat: Mucous Membranes Moist Neck: Trachea Midline Respiratory: Symmetrical Chest Expansion and Respiratory Effort, Clear to Auscultation Cardiovascular: NL Sounds; No Murmurs; No JVD, RRR Abdominal: - - abd soft, nontender, nondistended Extremities: - - trace edema to left forearm and approx 4 cm superior to elbow; no edema to hand; +3 pitting edema pretibially bilaterally which is overall unchanged from day prior Skin: - - erythema to left LE, minimally less dark red; bullous approx 1cm x3cm on left upper arm with diffuse various stages of ecchymosis to LUE Neurological: Alert and Oriented x 3, NL Muscle Strength and Tone Result Diagrams: 03/31/19 05:02 04/01/19 06:26 Microbiology and Other Data: Microbiology 03/29/19 23:46 Urine Culture - Preliminary Urine Escherichia Coli 03/29/19 20:40 Aerobic Blood Culture - Preliminary Blood Venous No Growth Day 2 Anaerobic Blood Culture - Preliminary No Growth Day 2 03/29/19 21:27 Aerobic Blood Culture - Preliminary Blood Venous No Growth Day 2 Anaerobic Blood Culture - Preliminary No Growth Day 2 Assess/Plan/Problems-Billing Assessment: Mr. Curran is a 73 yo M with PMH of Afib, HFpEF, HTN, HLD; who presented to the ED after being found down at home and was found to have rhabdo with XU and concern for right hip hardware fracture. - Patient Problems (1) Left upper extremity swelling Current Visit: Yes Status: Acute Code(s): M79.89 - OTHER SPECIFIED SOFT TISSUE DISORDERS SNOMED Code(s): 502282427 Comment: -edema to LUE new today -improving with elevation -low suspicion for LUE DVT as patient is on eliquis -possibly hematoma given fall, continue elevation and ice prn; patient refuses RED wraps -no IV infilatration as IV is on other arm (2) Rhabdomyolysis Current Visit: Yes Status: Acute Code(s): M62.82 - RHABDOMYOLYSIS SNOMED Code(s): 662290198 Comment: - Mechanical fall at home, down on the floor for approx 12 hours - CK 18,934 on admission, now trending down and is at ~5100 - CK is significantly improved and will d/c IVF considering HFpEF and significant LE edema - XU resolved (3) XU (acute kidney injury) Current Visit: Yes Status: Acute Code(s): N17.9 - ACUTE KIDNEY FAILURE, UNSPECIFIED SNOMED Code(s): 54263320 Comment: - Resolved - Secondary to rhabdo (4) Bilateral lower extremity edema Current Visit: Yes Status: Acute Code(s): R60.0 - LOCALIZED EDEMA SNOMED Code(s): 808287172 Comment: -related to venous insufficiency and HFpEF -likely minimally worsened from baseline due to IVF to treat rhabdo and XU -ordered RED wraps and leg levation, continue home diuretics -was considering attempting to use higher dose of spironolactone instead of home triameterene and patient refuses (5) Heart failure with preserved ejection fraction Current Visit: No Status: Acute Code(s): I50.30 - UNSPECIFIED DIASTOLIC ( CONGESTIVE) HEART FAILURE SNOMED Code(s): 941971262 Comment: - BLE edema as above - Echo shows EF 50-55%, no significant valvular abnormalities - continue home dyazide/HCTZ and furosemide (6) Left leg cellulitis Current Visit: Yes Status: Acute Code(s): L03.116 - CELLULITIS OF LEFT LOWER LIMB SNOMED Code(s): 091969626 Comment: - Patient reported worsening erythema to lower leg on admission. Patient does have chronic LE erythema d/t venous insufficiency - Previously treated with clinda in January - Leukocytosis resolved, afebrile - Continue cefazolin (7) UTI (urinary tract infection) Current Visit: Yes Status: Acute Comment: - Urine culture growing E. coli, sensitive to cephalosporins - Continue cefazolin - Afebrile, leukocytosis resolved (8) Atrial fibrillation Current Visit: No Status: Acute Code(s): I48.91 - UNSPECIFIED ATRIAL FIBRILLATION SNOMED Code(s): 14756493 Comment: - Rate controlled without medication - Continue Eliquis - Follows with Dr. Singh (9) Hypothyroidism Current Visit: Yes Status: Acute Code(s): E03.9 - HYPOTHYROIDISM, UNSPECIFIED SNOMED Code(s): 50911084 Comment: - Continue levothyroxine (10) Hardware failure Current Visit: Yes Status: Acute Code(s): VRE4377 - SNOMED Code(s): 811742623 Comment: - Known chronically fractured right femoral intramedullary patience - CT on admission showing increased displacement of fragments since prior study - No increase in pain or ROM per patient - Follows with Dr. Valentin and was referred to [facility]; patient reports they plan to operate in September - Spoke with Ortho demonstrator knitting who advised that there would not be any intervention here - WBAT RLE and okay to work with PT/OT (11) Hypertension Current Visit: No Status: Acute Code(s): I10 - ESSENTIAL (PRIMARY) HYPERTENSION SNOMED Code(s): 08289206 Comment: - Normotensive - continue dyazide/HCTZ (12) Falls Current Visit: Yes Status: Acute Comment: -mechanical fall at home -PT recommends [facility] at SNF and patient agreeable (13) Elevated lactic acid level Current Visit: Yes Status: Acute Code(s): R79.89 - OTHER SPECIFIED ABNORMAL FINDINGS OF BLOOD CHEMISTRY SNOMED Code(s): 5576043 Comment: - Resolved with IVF - Secondary to rhabdo, NOT sepsis (14) Elevated troponin Current Visit: Yes Status: Acute Code(s): R79.89 - OTHER SPECIFIED ABNORMAL FINDINGS OF BLOOD CHEMISTRY SNOMED Code(s): 217016200 Comment: -elevated at admission to 0.21, has since downtrended -no EKG changes -likely ischemic demand in setting of acute infection (15) DVT prophylaxis Current Visit: Yes Status: Acute Code(s): Z29.9 - ENCOUNTER FOR PROPHYLACTIC MEASURES, UNSPECIFIED SNOMED Code(s): 703296037 Comment: - Kayleen (16) Full code status Current Visit: Yes Status: Acute Code(s): Z78.9 - OTHER SPECIFIED HEALTH STATUS SNOMED Code(s): 383135281 Comment: Status and Disposition: Inpatient. Anticipate d/c to [facility] for [facility] Thursday04/04/19. Medically ready for discharge today
[2019-04-02] MEDS: Acetaminophen TAB* 325 MG PO PRN (20:50)
[2019-04-02] MEDS ORDERED: TRIAMTERENE 50 MG PO SCH (21:00)
[2019-04-02] MEDS ORDERED: Eye Irrigation Solution 30 ML BOTTLE BOTH EYES ONE (21:03)
[2019-04-03] MEDS: ceFAZolin 1 GM ADVAN(*) 1 GM in NS 0.9% 50 ML* 50 ML IVPB SCH ×4 (00:45→23:47)
[2019-04-03 06:00] LABS: BUN/Creatinine Ratio 30.5 (8-20); Calcium 8.8 mg/dL (8.6-10.3); EGFR African American 162.5 (>60); EGFR Non-African American 134.3 (>60); Potassium 3.8 mmol/L (3.5-5.0)
[2019-04-03] MEDS: Levothyroxine TAB* 88 MCG TAB PO SCH (06:12)
[2019-04-03] MEDS: Lactobacillus Acidophilus* 1 TAB PO SCH (08:58)
[2019-04-03] MEDS: Furosemide TAB* 40 MG PO SCH (08:58)
[2019-04-03] MEDS: Potassium Chlor TAB* 20 MEQ TAB.ER PO SCH ×2 (08:58→20:07)
[2019-04-03] MEDS: Triamterene/HCTZ 37.5-25 MG* CAP PO SCH (08:58)
[2019-04-03] MEDS: Multivitamins/Minerals TAB PO SCH (08:59)
[2019-04-03] MEDS: Apixaban* 5 MG TAB PO SCH ×2 (08:59→20:07)
[2019-04-03] MEDS: Acetaminophen TAB* 325 MG PO PRN ×2 (08:59→22:41)
[2019-04-03] MEDS ORDERED: Spironolactone TAB* 25 MG PO SCH (09:00)
[2019-04-03] MEDS ORDERED: Lisinopril TAB* 5 MG PO SCH (09:00)
--- NOTE | 2019-04-03 09:14 | PN ---
Subjective Date of Service: 04/03/19 Interval History: Patient refuses incentive spirometry while he's in the hospital. Patient feels well today. Denies chest pain, abd pain, difficulty breathing. Denies pain in lower extremities. Family History: Unchanged from Admission Social History: Unchanged from Admission Past Medical History: Findings - outpatient EMR reviewed, no hx of CAD. Had normal stress test in Dec 2018 Objective Active Medications: Acetaminophen (Tylenol Tab*) 650 mg PO Q4H PRN PRN Reason: PAIN - MILD Last Admin: 04/03/19 08:59 Dose: 650 mg Apixaban (Eliquis*) 5 mg PO BID [facility] Last Admin: 04/03/19 08:59 Dose: 5 mg Furosemide (Lasix Tab*) 80 mg PO QAM [facility] Last Admin: 04/03/19 08:58 Dose: 80 mg Cefazolin Sodium 1 gm/ Sodium (Chloride) 50 mls @ 200 mls/hr IVPB Q8H [facility] Last Admin: 04/03/19 08:59 Dose: 200 mls/hr Lactobacillus Rhamnosus (Lactobacillus Acidophilus*) 1 tab PO DAILY [facility] Last Admin: 04/03/19 08:58 Dose: 1 tab Levothyroxine Sodium (Synthroid Tab*) 88 mcg PO 0600 [facility] Last Admin: 04/03/19 06:12 Dose: 88 mcg Multivitamins/Minerals (Theragran/Minerals Tab*) 1 tab PO DAILY [facility] Last Admin: 04/03/19 08:59 Dose: 1 tab Potassium Chloride (Klor Con Er Tab*) 40 meq PO BID [facility] Last Admin: 04/03/19 08:58 Dose: 40 meq Triamterene/HCTZ (Dyazide Cap*) 1 cap PO DAILY [facility] Last Admin: 04/03/19 08:58 Dose: 1 cap Vital Signs - 8 hr 04/03/19 04/03/19 04/03/19 03:15 07:35 08:00 Temperature 97.7 F 98.3 F Pulse Rate 79 68 Respiratory 20 19 19 Rate Blood Pressure 149/71 131/50 (mmHg) O2 Sat by Pulse 98 100 Oximetry Oxygen Devices in Use Now: None Appearance: Obese, elderly, white male, sitting upright in bed, appearing comfortable and in NAD Eyes: No Scleral Icterus, - - PERRL Ears/Nose/Mouth/Throat: Mucous Membranes Moist Neck: Trachea Midline Respiratory: Symmetrical Chest Expansion and Respiratory Effort, Clear to Auscultation Cardiovascular: NL Sounds; No Murmurs; No JVD, RRR Abdominal: - - abd soft, nontender, nondistended Extremities: - - +2 pitting edema pretibially bilaterally; no pedal edema Skin: No Rash or Ulcers Neurological: Alert and Oriented x 3, NL Muscle Strength and Tone Result Diagrams: 03/31/19 05:02 04/03/19 05:24 Microbiology and Other Data: Microbiology 03/29/19 23:46 Urine Culture - Preliminary Urine Escherichia Coli 03/29/19 20:40 Aerobic Blood Culture - Preliminary Blood Venous No Growth Day 2 Anaerobic Blood Culture - Preliminary No Growth Day 2 03/29/19 21:27 Aerobic Blood Culture - Preliminary Blood Venous No Growth Day 2 Anaerobic Blood Culture - Preliminary No Growth Day 2 Assess/Plan/Problems-Billing Assessment: Mr. Curran is a 73 yo M with PMH of Afib, HFpEF, HTN, HLD; who presented to the ED after being found down at home and was found to have rhabdo with XU and concern for right hip hardware fracture. - Patient Problems (1) Left upper extremity swelling Current Visit: Yes Status: Acute Code(s): M79.89 - OTHER SPECIFIED SOFT TISSUE DISORDERS SNOMED Code(s): 073364920 Comment: -resolved today (2) Rhabdomyolysis Current Visit: Yes Status: Acute Code(s): M62.82 - RHABDOMYOLYSIS SNOMED Code(s): 392752210 Comment: - Mechanical fall at home, down on the floor for approx 12 hours - CK 18,934 on admission, now trending down and is at ~5100 - CK is significantly improved and will d/c IVF considering HFpEF and significant LE edema - XU resolved (3) XU (acute kidney injury) Current Visit: Yes Status: Acute Code(s): N17.9 - ACUTE KIDNEY FAILURE, UNSPECIFIED SNOMED Code(s): 46602080 Comment: - Resolved - Secondary to rhabdo (4) Bilateral lower extremity edema Current Visit: Yes Status: Acute Code(s): R60.0 - LOCALIZED EDEMA SNOMED Code(s): 122215612 Comment: -related to venous insufficiency and HFpEF -likely minimally worsened from baseline due to IVF to treat rhabdo and XU -ordered RED wraps and leg levation, continue home diuretics -was considering attempting to use higher dose of spironolactone instead of home triameterene and patient refuses (5) Heart failure with preserved ejection fraction Current Visit: No Status: Acute Code(s): I50.30 - UNSPECIFIED DIASTOLIC ( CONGESTIVE) HEART FAILURE SNOMED Code(s): 826154896 Comment: - BLE edema as above - Echo shows EF 50-55%, no significant valvular abnormalities - continue home dyazide/HCTZ and furosemide (6) Left leg cellulitis Current Visit: Yes Status: Acute Code(s): L03.116 - CELLULITIS OF LEFT LOWER LIMB SNOMED Code(s): 231852274 Comment: - Patient reported worsening erythema to lower leg on admission. Patient does have chronic LE erythema d/t venous insufficiency - Previously treated with clinda in January - Leukocytosis resolved, afebrile - Continue cefazolin (7) UTI (urinary tract infection) Current Visit: Yes Status: Acute Comment: - Urine culture growing E. coli, sensitive to cephalosporins - Continue cefazolin - Afebrile, leukocytosis resolved (8) Atrial fibrillation Current Visit: No Status: Acute Code(s): I48.91 - UNSPECIFIED ATRIAL FIBRILLATION SNOMED Code(s): 42500809 Comment: - Rate controlled without medication - Continue Eliquis - Follows with Dr. Singh (9) Hypothyroidism Current Visit: Yes Status: Acute Code(s): E03.9 - HYPOTHYROIDISM, UNSPECIFIED SNOMED Code(s): 20044161 Comment: - Continue levothyroxine (10) Hardware failure Current Visit: Yes Status: Acute Code(s): NEW7030 - SNOMED Code(s): 773600386 Comment: - Known chronically fractured right femoral intramedullary patience - CT on admission showing increased displacement of fragments since prior study - No increase in pain or ROM per patient - Follows with Dr. Valentin and was referred to [facility]; patient reports they plan to operate in September - Spoke with Ortho teacher vocational training who advised that there would not be any intervention here - WBAT RLE and okay to work with PT/OT (11) Hypertension Current Visit: No Status: Acute Code(s): I10 - ESSENTIAL (PRIMARY) HYPERTENSION SNOMED Code(s): 67890669 Comment: - Normotensive - continue dyazide/HCTZ (12) Falls Current Visit: Yes Status: Acute Comment: -mechanical fall at home -PT recommends [facility] at SNF and patient agreeable (13) Elevated lactic acid level Current Visit: Yes Status: Acute Code(s): R79.89 - OTHER SPECIFIED ABNORMAL FINDINGS OF BLOOD CHEMISTRY SNOMED Code(s): 6735794 Comment: - Resolved with IVF - Secondary to rhabdo, NOT sepsis (14) Elevated troponin Current Visit: Yes Status: Acute Code(s): R79.89 - OTHER SPECIFIED ABNORMAL FINDINGS OF BLOOD CHEMISTRY SNOMED Code(s): 961968072 Comment: -elevated at admission to 0.21, has since downtrended -no EKG changes -likely ischemic demand in setting of acute infection (15) DVT prophylaxis Current Visit: Yes Status: Acute Code(s): Z29.9 - ENCOUNTER FOR PROPHYLACTIC MEASURES, UNSPECIFIED SNOMED Code(s): 617185491 Comment: - Kayleen (16) Full code status Current Visit: Yes Status: Acute Code(s): Z78.9 - OTHER SPECIFIED HEALTH STATUS SNOMED Code(s): 806826392 Comment: Status and Disposition: Inpatient. Anticipate d/c to [facility] for [facility] Thursday04/04/19. Medically ready for discharge today
[2019-04-03] MEDS ORDERED: Eye Irrigation Solution 30 ML BOTTLE BOTH EYES ONE (16:58)
[2019-04-03] MEDS ORDERED: Artificial Tears* 15 ML BTL BOTH EYES PRN (16:59)
[2019-04-03] MEDS: Dextran 70/Hypromellose Tears Eye Drops 15 ml BTL (for Artificials Tears) BOTH EYES PRN (22:37)
[2019-04-04] MEDS: Levothyroxine TAB* 88 MCG TAB PO SCH (05:19)
[2019-04-04] MEDS: Triamterene/HCTZ 37.5-25 MG* CAP PO SCH (08:35)
[2019-04-04] MEDS: Lactobacillus Acidophilus* 1 TAB PO SCH (08:35)
[2019-04-04] MEDS: Furosemide TAB* 40 MG PO SCH (08:35)
[2019-04-04] MEDS: Potassium Chlor TAB* 20 MEQ TAB.ER PO SCH ×2 (08:35→20:59)
[2019-04-04] MEDS: Apixaban* 5 MG TAB PO SCH ×2 (08:35→20:59)
[2019-04-04] MEDS: Multivitamins/Minerals TAB PO SCH (08:35)
[2019-04-04] MEDS: ceFAZolin 1 GM ADVAN(*) 1 GM in NS 0.9% 50 ML* 50 ML IVPB SCH ×2 (09:39→16:45)
--- NOTE | 2019-04-04 10:01 | DS ---
CC: Dr. Renae * DISCHARGE SUMMARY: DATE OF ADMISSION: 03/29/19 DATE OF DISCHARGE: 04/04/19 PRIMARY CARE PROVIDER: Dr. Renae. ATTENDING PROVIDER: Pro Hurley MD * (DICTATED BY FORD SANTILLAN) PRIMARY DIAGNOSES: 1. Rhabdomyolysis secondary to prolonged time on the floor. 2. Acute kidney injury secondary to rhabdomyolysis. 3. Urinary tract infection. 4. Left lower extremity cellulitis with underlying vascular deficiency. SECONDARY DIAGNOSES: 1. Heart failure with preserved ejection fraction. 2. Chronic bilateral lower extremity edema. 3. Atrial fibrillation, on Eliquis. 4. Hypothyroidism. 5. Hypertension. 6. Hyperlipidemia. 7. Chronic fractured right femoral intramedullary patience. SIGNIFICANT LABS AND STUDIES WHILE IN THE HOSPITAL: Lumbar spine CT on . Impression, no lumbar spine traumatic abnormalities. Moderate multilevel lumbar spondylopathy causing moderate canal stenosis at L3-L4. No nerve root compression. Transthoracic echocardiogram on 03/30/19 left ventricular wall thickness is mildly increased, estimated EF is 50% to 55%. Right ventricular cavity is dilated. No evidence of aortic stenosis. Please see full report for further details. Pelvis CT on 03/30/19 chronically fractured right femoral intramedullary patience with increased displacement of fragments since prior radiographs. No acute fractures or dislocations. Mild bilateral hip primary osteoarthritis. Initial creatinine kinase 18,934 which ultimately downtrended to 5150, creatinine of 1.32 and BUN of 44 on 03/30/19, on 04/03/19 BUN is 18 and creatinine 0.59, troponin of 0.21, also later downtrended to 0.05. Urine culture with E. coli sensitive to cefazolin. White blood cell count is 17.1 on 03/21/19 and 8.9 and 03/31/19. HISTORY OF PRESENT ILLNESS/HOSPITAL COURSE: Rafael Curran is a 73-year-old white male with past medical history significant for hypertension, hypothyroidism, heart failure, preserved ejection fraction and bilateral lower extremity chronic edema who presented to emergency department following a mechanical fall trying to get out of the bed and was prolonged time on the floor for approximately 12 hours. Please see admitting history and physical done by Dr. Krystal Clemons for further details. The patient was found to have rhabdomyolysis secondary to this prolonged time on the floor and had mild XU, which resolved with fluids. The patient's home diuretics of Lasix, Dyazide, hydrochlorothiazide were held initially in the setting of rhabdomyolysis and were later restarted after resolution of acute kidney injury. The patient was offered increased diuresis to improve his bilateral lower extremity edema in the setting of the recent large volume of IV hydration and the patient declined and wished to remain on his current regimen. The patient did have some deconditioning after being found on the floor and also some bullae on his left arm and a large bulla on his left hip, which did rupture serous fluid with clean wound base and was provided wound care for this during his hospital stay without concern for infection at the site of wound. Ultimately he was deconditioned from this fall and he was seen by Physical Therapy while he was in the hospital and physical therapy recommended subacute rehab. The patient had elevated troponin initially at the time of admission and he had no anginal symptoms. This has since downtrended and he had no EKG changes and this is likely ischemic demand in the setting of his acute infection. There is concern for likely left lower extremity cellulitis at his admission and he did recently have outpatient therapy for this and he was started on cefazolin to cover both the left lower extremity possible cellulitis as well as the UTI, which was demonstrated in urine culture as well as the initial urinalysis. The erythema of his left lower extremity did continue to improve during his hospital stay though I do suspect that it is erythema is chronic and related to his vascular insufficiency and I do not expect the erythema to ever completely resolve though. The patient does admit though that the erythema at admission was increased compared to the baseline erythema in his left lower extremity. The patient was agreeable to elevation in his legs as well as Paul wraps to help with the chronic edema of his bilateral lower extremities. The patient was afebrile during the entire course of his hospital stay and leukocytosis resolved and also the patient was safe for discharge. DISCHARGE PLAN: DIET: Low sodium diet ACTIVITY: The patient may return to normal activities as tolerated. The patient is going to [facility] for subacute rehab. I recommend daily Paul wraps to his bilateral extremities or JETT hose if he is able to provide them from home. I recommend he follows up with his primary care provider 1 week after discharge from [facility]. The patient should complete the full course of antibiotics. The patient should return to emergency department if he has hematuria, dysuria, fever, chills, chest pain, difficulty breathing, loss of consciousness or other concerning symptoms. DISCHARGE MEDICATIONS: New Medications: Cephalexin 500 mg p.o. 4 times a day x4 days (please start on 04/05/19). Continued Home Medications: 1. Lactobacillus acidophilus 1 tab p.o. daily. 2. Synthroid 88 mcg p.o. daily. 3. Multivitamin 1 tab p.o. daily. 4. Lasix 80 mg p.o. daily. 5. Triamcinolone cream 1 application topically 4 times a day p.r.n. itching. 6. Eliquis 5 mg p.o. b.i.d. 7. Potassium chloride 40 mEq p.o. b.i.d. 8. Triamterene/hydrochlorothiazide 37.5 mg/25 mg 1 cap p.o. daily. CONDITION AT DISCHARGE: Stable DISPOSITION: [facility] for subacute rehab. TIME SPENT: Approximately 40 minutes was spent on this discharge, approximately half of this time spent at bedside evaluating the patient and discussing the plan of care. FORD SANTILLAN [id number]/[facility] #: [id number] KRYSTINA
[2019-04-04] MEDS: Dextran 70/Hypromellose Tears Eye Drops 15 ml BTL (for Artificials Tears) BOTH EYES PRN ×2 (14:07→21:00)
--- NOTE | 2019-04-04 16:52 | PN ---
Subjective Date of Service: 04/04/19 Interval History: Unfortunately, [facility] notified nursing and case management that they were no longer able to take the patient today and he will have to go tomorrow afternoon. The patient is aware of this. Patient has no complaints today. Denies chest pain, difficulty breathing, abd pain, fever/chills. His brought his TEDs in from home and he is wearing them. Family History: Unchanged from Admission Social History: Unchanged from Admission Past Medical History: Findings - outpatient EMR reviewed, no hx of CAD. Had normal stress test in Dec 2018 Objective Active Medications: Acetaminophen (Tylenol Tab*) 650 mg PO Q4H PRN PRN Reason: PAIN - MILD Last Admin: 04/03/19 22:41 Dose: 650 mg Apixaban (Eliquis*) 5 mg PO BID [facility] Last Admin: 04/04/19 08:35 Dose: 5 mg Artificial Tears (Natural Balance Tears Eye Drop) 1 drop BOTH EYES Q2H PRN PRN Reason: DRY EYE Last Admin: 04/04/19 14:07 Dose: 1 drop Furosemide (Lasix Tab*) 80 mg PO QAM [facility] Last Admin: 04/04/19 08:35 Dose: 80 mg Cefazolin Sodium 1 gm/ Sodium (Chloride) 50 mls @ 200 mls/hr IVPB Q8H [facility] Last Admin: 04/04/19 16:45 Dose: 200 mls/hr Lactobacillus Rhamnosus (Lactobacillus Acidophilus*) 1 tab PO DAILY [facility] Last Admin: 04/04/19 08:35 Dose: 1 tab Levothyroxine Sodium (Synthroid Tab*) 88 mcg PO 0600 [facility] Last Admin: 04/04/19 05:19 Dose: 88 mcg Multivitamins/Minerals (Theragran/Minerals Tab*) 1 tab PO DAILY [facility] Last Admin: 04/04/19 08:35 Dose: 1 tab Potassium Chloride (Klor Con Er Tab*) 40 meq PO BID [facility] Last Admin: 04/04/19 08:35 Dose: 40 meq Triamterene/HCTZ (Dyazide Cap*) 1 cap PO DAILY [facility] Last Admin: 04/04/19 08:35 Dose: 1 cap Vital Signs - 8 hr 04/04/19 11:15 Temperature 97.5 F Pulse Rate 82 Respiratory 18 Rate Blood Pressure 131/54 (mmHg) O2 Sat by Pulse 98 Oximetry Oxygen Devices in Use Now: None Appearance: Obese, elderly white male, sitting upright in bed, appearing comfortable and in NAD Eyes: No Scleral Icterus, - - PERRL Ears/Nose/Mouth/Throat: Mucous Membranes Moist Neck: Trachea Midline Respiratory: Symmetrical Chest Expansion and Respiratory Effort, Clear to Auscultation Cardiovascular: NL Sounds; No Murmurs; No JVD, RRR Abdominal: - - abd soft, nontender, nondistended Extremities: No Clubbing, Cyanosis, - - TEDs on bilateral LEs, still with +2 pitting edema pretibially bilaterally Skin: No Rash or Ulcers Neurological: Alert and Oriented x 3, NL Muscle Strength and Tone Result Diagrams: 03/31/19 05:02 04/03/19 05:24 Microbiology and Other Data: Microbiology 03/29/19 23:46 Urine Culture - Preliminary Urine Escherichia Coli 03/29/19 20:40 Aerobic Blood Culture - Preliminary Blood Venous No Growth Day 2 Anaerobic Blood Culture - Preliminary No Growth Day 2 03/29/19 21:27 Aerobic Blood Culture - Preliminary Blood Venous No Growth Day 2 Anaerobic Blood Culture - Preliminary No Growth Day 2 Assess/Plan/Problems-Billing Assessment: Mr. Curran is a 73 yo M with PMH of Afib, HFpEF, HTN, HLD; who presented to the ED after being found down at home and was found to have rhabdo with XU and concern for right hip hardware fracture. - Patient Problems (1) Rhabdomyolysis Current Visit: Yes Status: Acute Code(s): M62.82 - RHABDOMYOLYSIS SNOMED Code(s): 041678772 Comment: - Mechanical fall at home, down on the floor for approx 12 hours - CK 18,934 on admission, now trending down and is at ~5100 - CK is significantly improved and will d/c IVF considering HFpEF and significant LE edema - XU resolved (2) XU (acute kidney injury) Current Visit: Yes Status: Acute Code(s): N17.9 - ACUTE KIDNEY FAILURE, UNSPECIFIED SNOMED Code(s): 23940056 Comment: - Resolved - Secondary to rhabdo (3) Bilateral lower extremity edema Current Visit: Yes Status: Acute Code(s): R60.0 - LOCALIZED EDEMA SNOMED Code(s): 343278002 Comment: -related to venous insufficiency and HFpEF -likely minimally worsened from baseline due to IVF to treat rhabdo and XU -ordered RED wraps and leg levation, continue home diuretics -was considering attempting to use higher dose of spironolactone instead of home triameterene and patient refuses (4) Heart failure with preserved ejection fraction Current Visit: No Status: Acute Code(s): I50.30 - UNSPECIFIED DIASTOLIC ( CONGESTIVE) HEART FAILURE SNOMED Code(s): 348943477 Comment: - BLE edema as above - Echo shows EF 50-55%, no significant valvular abnormalities - continue home dyazide/HCTZ and furosemide (5) Left leg cellulitis Current Visit: Yes Status: Acute Code(s): L03.116 - CELLULITIS OF LEFT LOWER LIMB SNOMED Code(s): 937359568 Comment: - Patient reported worsening erythema to lower leg on admission. Patient does have chronic LE erythema d/t venous insufficiency - Previously treated with clinda in January - Leukocytosis resolved, afebrile - Continue cefazolin (6) UTI (urinary tract infection) Current Visit: Yes Status: Acute Comment: - Urine culture growing E. coli, sensitive to cephalosporins - Continue cefazolin - Afebrile, leukocytosis resolved (7) Atrial fibrillation Current Visit: No Status: Acute Code(s): I48.91 - UNSPECIFIED ATRIAL FIBRILLATION SNOMED Code(s): 32314080 Comment: - Rate controlled without medication - Continue Eliquis - Follows with Dr. Singh (8) Hypothyroidism Current Visit: Yes Status: Acute Code(s): E03.9 - HYPOTHYROIDISM, UNSPECIFIED SNOMED Code(s): 23260187 Comment: - Continue levothyroxine (9) Hardware failure Current Visit: Yes Status: Acute Code(s): UKU2121 - SNOMED Code(s): 618418539 Comment: - Known chronically fractured right femoral intramedullary patience - CT on admission showing increased displacement of fragments since prior study - No increase in pain or ROM per patient - Follows with Dr. Valentin and was referred to [facility]; patient reports they plan to operate in September - Spoke with Ortho warp tension tester who advised that there would not be any intervention here - WBAT RLE and okay to work with PT/OT (10) Hypertension Current Visit: No Status: Acute Code(s): I10 - ESSENTIAL (PRIMARY) HYPERTENSION SNOMED Code(s): 93435881 Comment: - Normotensive - continue dyazide/HCTZ (11) Falls Current Visit: Yes Status: Acute Comment: -mechanical fall at home -PT recommends MADELIN at SNF and patient will be going to [facility] (12) Elevated lactic acid level Current Visit: Yes Status: Acute Code(s): R79.89 - OTHER SPECIFIED ABNORMAL FINDINGS OF BLOOD CHEMISTRY SNOMED Code(s): 9303617 Comment: - Resolved with IVF - Secondary to rhabdo, NOT sepsis (13) Elevated troponin Current Visit: Yes Status: Acute Code(s): R79.89 - OTHER SPECIFIED ABNORMAL FINDINGS OF BLOOD CHEMISTRY SNOMED Code(s): 544396981 Comment: -elevated at admission to 0.21, has since downtrended -no EKG changes -likely ischemic demand in setting of acute infection (14) DVT prophylaxis Current Visit: Yes Status: Acute Code(s): Z29.9 - ENCOUNTER FOR PROPHYLACTIC MEASURES, UNSPECIFIED SNOMED Code(s): 433885806 Comment: - Kayleen (15) Full code status Current Visit: Yes Status: Acute Code(s): Z78.9 - OTHER SPECIFIED HEALTH STATUS SNOMED Code(s): 544201246 Comment: Status and Disposition: Inpatient. For unclear reasons, [facility] was no longer able to accept this patient today and he will be going to [facility] for MADELIN tomorrow.
[2019-04-04] MEDS: Acetaminophen TAB* 325 MG PO PRN (21:57)
[2019-04-05] MEDS: ceFAZolin 1 GM ADVAN(*) 1 GM in NS 0.9% 50 ML* 50 ML IVPB SCH ×2 (00:41→07:47)
[2019-04-05] MEDS: Levothyroxine TAB* 88 MCG TAB PO SCH (05:06)
[2019-04-05] MEDS: Dextran 70/Hypromellose Tears Eye Drops 15 ml BTL (for Artificials Tears) BOTH EYES PRN (05:58)
[2019-04-05] MEDS: Potassium Chlor TAB* 20 MEQ TAB.ER PO SCH (07:48)
[2019-04-05] MEDS: Furosemide TAB* 40 MG PO SCH (07:48)
[2019-04-05] MEDS: Apixaban* 5 MG TAB PO SCH (07:48)
[2019-04-05] MEDS: Multivitamins/Minerals TAB PO SCH (07:48)
[2019-04-05] MEDS: Lactobacillus Acidophilus* 1 TAB PO SCH (07:48)
[2019-04-05] MEDS: Triamterene/HCTZ 37.5-25 MG* CAP PO SCH (07:48)
--- NOTE | 2019-04-05 09:44 | DS ---
CC: [facility] * ADDENDUM TO DISCHARGE SUMMARY ALREADY DICTATED DATE OF ADMISSION: 03/29/19 ACTUAL DATE OF DISCHARGE: 04/05/19 ATTENDING PROVIDER: Dr. Reid * (DICTATED BY FORD SANTILLAN) Unfortunately, due to clerical errors at [facility], the patient's bed was not available on the anticipated date of discharge of . This morning, the facility has confirmed with case management that the patient will be able to arrive this afternoon. DISCHARGE MEDICATIONS: New Medication 1. Cephalexin 500 mg po 4x a day x3 days (please start on 04/06/19). No other further changes from the previous discharge summary. Please follow the continued home medications, diet, activity, and follow-up instructions as previously stated. DISPOSITION: [facility] for subaute rehab. CONDITION AT DISCHARGE: Stable. FORD SANTILLAN [id number]/[facility] #: [id number] MTDD
[2019-04-05 11:13] VITALS: BP 144/56
== END 2019-04-05 18:07 | DRG 558 ==
LOC: ED 20:25 → MEDTELE 22:50
PROVIDERS: ADMIT Student in an Organized Health Care Education/Training Program; ATTEND Hospitalist
DX: M62.82 Rhabdomyolysis (principal); N17.9 Acute kidney failure, unspecified; L03.116 Cellulitis of left lower limb; T84.114A Breakdown (mechanical) of internal fixation device of right femur, initial encounter; I50.30 Unspecified diastolic (congestive) heart failure; N39.0 Urinary tract infection, site not specified; I24.8 Other forms of acute ischemic heart disease; I11.0 Hypertensive heart disease with heart failure; I25.10 Atherosclerotic heart disease of native coronary artery without angina pectoris; E78.5 Hyperlipidemia, unspecified; I48.91 Unspecified atrial fibrillation; R79.89 Other specified abnormal findings of blood chemistry; E03.9 Hypothyroidism, unspecified; M16.0 Bilateral primary osteoarthritis of hip; I87.2 Venous insufficiency (chronic) (peripheral); R74.9 Abnormal serum enzyme level, unspecified; M48.061 Spinal stenosis, lumbar region without neurogenic claudication; T14.8XXA Other injury of unspecified body region, initial encounter; W06.XXXA Fall from bed, initial encounter; Y92.003 Bedroom of unspecified non-institutional (private) residence as the place of occurrence of the external cause; Z82.49 Family history of ischemic heart disease and other diseases of the circulatory system; Z83.3 Family history of diabetes mellitus; Z83.438 Family history of other disorder of lipoprotein metabolism and other lipidemia
CPT/HCPCS: 36415; 72131; 72192; 80048; 80053; 80202; 81003; 81015; 82550; 82565; 83036; 83605; 83735; 83880; 84484; 84520; 85025; 85610; 85730; 86140; 87040; 87077; 87086; 87186; 93005; 93306; 99284; A9270-GY; G8978-GP-CL; G8979-GP-CJ; G8987-GO-CL; G8988-GO-CI; J0690; J2543; J3370

== ENCOUNTER 2023-06-24 18:46 | Inpatient (IN) ==
[2023-06-24] MEDS: Lactated Ringers 1000 ml BAG 1,000 ML IV ONE ×2 (21:05→23:00)
[2023-06-24 21:13] LABS: ABS Lymphocytes 0.2 10^3/uL (1.0-4.8); ABS Monocytes 0.3 10^3/uL (0.0-1.1); ABS Neutrophils 3.5 10^3/uL (1.5-7.6); Eosinophil % 0.1 %; Hemoglobin 13.1 g/dL (13.2-16.3); Lymphocyte % 4.6 %; Mean Corpuscular Hemoglobin 29.6 pg (27-33); Mean Corpuscular Hgb Conc 32.8 g/dL (31-36); Mean Corpuscular Volume 90.2 fL (80-97); Mean Platelet Volume 8.1 fL (7.5-11.2); Nucleated Red Blood Cells % 0.1 %/100WBC (0.0-0.8); Platelet Count 156 10^3/uL (150-450); Red Blood Count 4.43 10^6/uL (4.06-5.63); Red Cell Distribution Width 14.8 % (12-17)
[2023-06-24 21:41] LABS: Albumin 4.2 g/dL (3.2-5.2); Albumin/Globulin Ratio 1.6 (1-3); Calcium 9.5 mg/dL (8.6-10.3); Creatinine, Serum 1.35 mg/dL (0.67-1.17); Globulin 2.6 g/dL (2-4); Magnesium 2.1 mg/dL (1.9-2.7); Potassium 3.4 mmol/L (3.5-5.0); Total Bilirubin 0.8 mg/dL (0.2-1.0); Total Protein 6.8 g/dL (6.4-8.9); eGFR CKD-EPI 53.7 (>60)
[2023-06-24] MEDS: Cefepime 2 GM in Dextrose 2 GM/50 ML BAG IV ONE (22:22)
[2023-06-24] MEDS: Iodixanol (CONTRAST) 320 MG/ML 100 ML SDV IV ONE (23:59)
[2023-06-25] MEDS: Azithromycin 500 mg/250 ml NS 500 MG/250 ML BAG IVPB SCH (00:59)
[2023-06-25] MEDS: Iohexol 350 (CONTRAST) 500 ML MDV IV ONE (02:56)
[2023-06-25] MEDS: Lactated Ringers 1000 ml BAG 1,000 ML IV ONE ×2 (03:00→10:12)
[2023-06-25] MEDS: Morphine 4 MG/ML VIAL (1 ml) IV ONE (03:01)
[2023-06-25] MEDS: Vancomycin 1,500 MG in NS 0.9% 250 ml 250 ML IVPB SCH (03:07)
[2023-06-25] MEDS: Acetaminophen IV 1 GM/100ML 1,000 MG/100 ML BAG IV ONE (03:45)
[2023-06-25 05:20] LABS: Hematocrit 38.6 % (38-53); Hemoglobin 12.8 g/dL (13.2-16.3); Mean Corpuscular Hgb Conc 33.1 g/dL (31-36); Mean Corpuscular Volume 90.5 fL (80-97); Mean Platelet Volume 8.3 fL (7.5-11.2); Platelet Count 130 10^3/uL (150-450); Red Blood Count 4.26 10^6/uL (4.06-5.63); White Blood Count 6.1 10^3/uL (3.6-10.2)
[2023-06-25 05:57] LABS: Calcium 8.7 mg/dL (8.6-10.3); Creatinine, Serum 1.72 mg/dL (0.67-1.17); Potassium 3.7 mmol/L (3.5-5.0); eGFR CKD-EPI 40.2 (>60)
[2023-06-25 06:23] LABS: Magnesium 1.8 mg/dL (1.9-2.7)
[2023-06-25] MEDS: Albuterol/Ipratropium NEB.SOL (2.5/0.5 MG) 3 ML NEB.SOLN INH ONE (08:12)
[2023-06-25] MEDS ORDERED: Vancomycin per Pharmacy 1 EA NOTE FOLLOW UP PRN (08:19)
[2023-06-25] MEDS: cefTRIAXone 1 gm/50 mL D5W 1 GM/50 ML BAG IV SCH (08:29)
[2023-06-25 12:07] LABS: High Sensitivity Troponin 1 Hr 419 pg/mL (<20)
[2023-06-25] MEDS: Lactated Ringers 1000 ml BAG 1,000 ML IV SCH (13:03)
[2023-06-25 14:43] LABS: High Sensitivity Troponin 3 Hr 459 pg/mL (<20)
[2023-06-25 22:23] LABS: Urine Appearance Turbid; Urine Bilirubin Negative (Negative); Urine Blood 2+ (Negative); Urine Color Yellow; Urine Glucose Negative (Negative); Urine Ketones Trace (Negative); Urine Nitrite Negative (Negative); Urine Protein 1+ (>=30 mg/dL) (Negative); Urine Specific Gravity 1.037 (1.002-1.030); Urine Urobilinogen Negative (Negative)
[2023-06-25 22:29] LABS: Urine Bacteria 1+ /HPF (Absent); Urine Red Blood Cell 2+(6-10/hpf) /HPF (0-Trace); Urine Squamous Epithelial Cell Present /HPF (Absent); Urine White Blood Cell 3+(>20/hpf) /HPF (0-Trace)
[2023-06-26 06:42] LABS: ABS Lymphocytes 0.3 10^3/uL (1.0-4.8); ABS Monocytes 0.5 10^3/uL (0.0-1.1); ABS Neutrophils 11.3 10^3/uL (1.5-7.6); ABS Nucleated RBC 0.01 10^3/ul; Eosinophil % 0.2 %; Hematocrit 37.4 % (38-53); Hemoglobin 12.3 g/dL (13.2-16.3); Lymphocyte % 2.5 %; Mean Corpuscular Hemoglobin 29.6 pg (27-33); Mean Corpuscular Hgb Conc 32.8 g/dL (31-36); Mean Corpuscular Volume 90.2 fL (80-97); Mean Platelet Volume 8.2 fL (7.5-11.2); Nucleated Red Blood Cells % 0.1 %/100WBC (0.0-0.8); Platelet Count 119 10^3/uL (150-450); Red Blood Count 4.15 10^6/uL (4.06-5.63); Red Cell Distribution Width 15.3 % (12-17); White Blood Count 12.2 10^3/uL (3.6-10.2)
[2023-06-26 07:06] LABS: Calcium 8.3 mg/dL (8.6-10.3); Creatinine, Serum 1.9 mg/dL (0.67-1.17); Potassium 4.4 mmol/L (3.5-5.0); eGFR CKD-EPI 35.7 (>60)
[2023-06-26 07:37] LABS: Magnesium 1.9 mg/dL (1.9-2.7)
[2023-06-26] MEDS: Furosemide 40 mg/4 ml IV VIAL IV SLOW PU ONE (10:26)
[2023-06-26 11:36] LABS: Urine Appearance Turbid; Urine Bacteria Absent /HPF (Absent); Urine Bilirubin Negative (Negative); Urine Blood 3+ (Negative); Urine Glucose Negative (Negative); Urine Ketones Negative (Negative); Urine Nitrite Negative (Negative); Urine Protein 1+ (>=30 mg/dL) (Negative); Urine Red Blood Cell 3+(>10/hpf) /HPF (0-Trace); Urine Specific Gravity 1.023 (1.002-1.030); Urine Urobilinogen Negative (Negative); Urine White Blood Cell 3+(>20/hpf) /HPF (0-Trace)
[2023-06-26 11:37] LABS: Urine Color Light-Red
[2023-06-26 12:46] LABS: PCO2 Arterial 40 mmHg (35-45); PO2 Arterial 79 mmHg (80-100)
[2023-06-26 19:08] LABS: Calcium 8.2 mg/dL (8.6-10.3); Creatinine, Serum 1.74 mg/dL (0.67-1.17); Potassium 4.2 mmol/L (3.5-5.0); eGFR CKD-EPI 39.6 (>60)
[2023-06-26] MEDS: Albuterol/Ipratropium NEB.SOL (2.5/0.5 MG) 3 ML NEB.SOLN INH SCH ×2 (21:30→23:59)
[2023-06-26] MEDS: Ondansetron 4 mg VIAL 2 MG/ML 2 ml VIAL IV PRN (22:16)
[2023-06-26] MEDS: Bumetanide IV 0.25 MG/ML 4 ml VIAL (1 mg) IV SLOW PU ONE (22:16)
[2023-06-26] MEDS: Famotidine IV 10 MG/ML 2 ml VIAL (20 mg) IV SLOW PU ONE (22:16)
[2023-06-26] MEDS: Pantoprazole VIAL 40 MG VIAL IV SCH (23:54)
[2023-06-27 02:14] LABS: Hematocrit 34.5 % (38-53); Hemoglobin 11.7 g/dL (13.2-16.3); Mean Corpuscular Hemoglobin 29.9 pg (27-33); Mean Corpuscular Hgb Conc 33.8 g/dL (31-36); Mean Corpuscular Volume 88.6 fL (80-97); Mean Platelet Volume 8.5 fL (7.5-11.2); Platelet Count 125 10^3/uL (150-450); Red Cell Distribution Width 15.4 % (12-17)
[2023-06-27 02:37] LABS: Calcium 8.1 mg/dL (8.6-10.3); Creatinine, Serum 1.62 mg/dL (0.67-1.17); eGFR CKD-EPI 43.2 (>60)
[2023-06-27 05:42] LABS: Hematocrit 34.7 % (38-53); Hemoglobin 11.4 g/dL (13.2-16.3); Mean Corpuscular Hemoglobin 29.4 pg (27-33); Mean Corpuscular Hgb Conc 32.9 g/dL (31-36); Mean Corpuscular Volume 89.2 fL (80-97); Mean Platelet Volume 8.4 fL (7.5-11.2); Platelet Count 122 10^3/uL (150-450); Red Blood Count 3.89 10^6/uL (4.06-5.63); Red Cell Distribution Width 15.2 % (12-17); White Blood Count 14.3 10^3/uL (3.6-10.2)
[2023-06-27] MEDS: Lactated Ringers 1000 ml BAG 1,000 ML IV SCH (06:09)
[2023-06-27 06:40] LABS: ABS Lymphocytes 0.2 10^3/uL (1.0-4.8); ABS Monocytes 0.7 10^3/uL (0.0-1.1); ABS Neutrophils 13.4 10^3/uL (1.5-7.6); ABS Nucleated RBC 0.01 10^3/ul; Lymphocyte % 1.4 %
[2023-06-27 06:54] LABS: RBC Morphology Normal (Normal)
[2023-06-27] MEDS ORDERED: Albuterol/Ipratropium NEB.SOL (2.5/0.5 MG) 3 ML NEB.SOLN INH SCH (07:00)
[2023-06-27 08:34] LABS: Calcium 8.5 mg/dL (8.6-10.3); Creatinine, Serum 1.72 mg/dL (0.67-1.17); Potassium 3.8 mmol/L (3.5-5.0); eGFR CKD-EPI 40.2 (>60)
[2023-06-27 08:35] LABS: Magnesium 2.1 mg/dL (1.9-2.7)
[2023-06-27 14:26] LABS: Phospholipid Ab IgG < 9.4 GPL; Phospholipid Ab IgM, S < 9.4 MPL
[2023-06-27 14:46] LABS: Hematocrit 35.8 % (38-53); Mean Corpuscular Hemoglobin 29.6 pg (27-33); Mean Corpuscular Hgb Conc 33.4 g/dL (31-36); Mean Corpuscular Volume 88.6 fL (80-97); Mean Platelet Volume 8.2 fL (7.5-11.2); Platelet Count 137 10^3/uL (150-450); Red Blood Count 4.04 10^6/uL (4.06-5.63); Red Cell Distribution Width 15.5 % (12-17)
[2023-06-27] MEDS: Albuterol/Ipratropium NEB.SOL (2.5/0.5 MG) 3 ML NEB.SOLN INH PRN (15:32)
[2023-06-27 15:50] LABS: Calcium 8.3 mg/dL (8.6-10.3); Creatinine, Serum 1.72 mg/dL (0.67-1.17); Potassium 4.1 mmol/L (3.5-5.0); eGFR CKD-EPI 40.2 (>60)
[2023-06-27 16:08] LABS: ABS Lymphocytes 0.3 10^3/uL (1.0-4.8); ABS Monocytes 0.7 10^3/uL (0.0-1.1); ABS Neutrophils 12.9 10^3/uL (1.5-7.6); Eosinophil % 0.1 %; Lymphocyte % 2.2 %
[2023-06-27 18:40] LABS: Beta 2 Glycoprotein IgG <9.4 SGU
[2023-06-28] MEDS: Bumetanide IV 0.25 MG/ML 4 ml VIAL (1 mg) IV SLOW PU ONE (00:59)
[2023-06-28 05:51] LABS: ABS Lymphocytes 0.2 10^3/uL (1.0-4.8); ABS Monocytes 0.7 10^3/uL (0.0-1.1); ABS Neutrophils 14.4 10^3/uL (1.5-7.6); Hematocrit 33.1 % (38-53); Hemoglobin 11.1 g/dL (13.2-16.3); Lymphocyte % 1.6 %; Mean Corpuscular Hemoglobin 29.7 pg (27-33); Mean Corpuscular Hgb Conc 33.5 g/dL (31-36); Mean Corpuscular Volume 88.7 fL (80-97); Mean Platelet Volume 8.6 fL (7.5-11.2); Platelet Count 116 10^3/uL (150-450); Red Blood Count 3.73 10^6/uL (4.06-5.63); Red Cell Distribution Width 15.2 % (12-17); White Blood Count 15.3 10^3/uL (3.6-10.2)
[2023-06-28 06:12] LABS: ALT 76 U/L (7-52); AST 104 U/L (13-39); Albumin 3.2 g/dL (3.2-5.2); Albumin/Globulin Ratio 1.1 (1-3); Alkaline Phosphatase 73 U/L (35-149); Anion Gap 10 mmol/L (2-16); Blood Urea Nitrogen 84 mg/dL (6-24); CO2 Carbon Dioxide 26 mmol/L (22-32); Chloride 95 mmol/L (101-111); Creatine Kinase 925 U/L (10-223); Creatinine, Serum 1.68 mg/dL (0.67-1.17); Globulin 2.8 g/dL (2-4); Glucose 163 mg/dL (70-100); Magnesium 2.1 mg/dL (1.9-2.7); Potassium 3.7 mmol/L (3.5-5.0); Sodium 131 mmol/L (135-145); Total Bilirubin 0.6 mg/dL (0.2-1.0); eGFR CKD-EPI 41.3 (>60)
[2023-06-28] MEDS ORDERED: Vancomycin per Pharmacy 1 EA NOTE FOLLOW UP PRN (10:27)
[2023-06-28] MEDS: Vancomycin 1,500 MG in NS 0.9% 250 ml 250 ML IVPB ONE (10:49)
[2023-06-28] MEDS: Potassium Chloride LIQUID 20 MEQ/15 ML LIQUID PO ONE (14:40)
[2023-06-28 19:47] LABS: % Iron Saturation 7 % (15-55); .Transferrin 206 mg/dL (203-362); Iron < 20 ug/dL (50-212); Total Iron Binding Capacity 288 mcg/dL (250-450); Transferrin 206 mg/dL (203-362); Unsaturated Iron Binding 268 ug/dL
[2023-06-29 06:11] LABS: Hematocrit 32.6 % (38-53); Hemoglobin 11.1 g/dL (13.2-16.3); Mean Corpuscular Hemoglobin 29.9 pg (27-33); Mean Corpuscular Volume 88.1 fL (80-97); Mean Platelet Volume 8.3 fL (7.5-11.2); Platelet Count 110 10^3/uL (150-450); White Blood Count 9.2 10^3/uL (3.6-10.2)
[2023-06-29 06:21] LABS: Calcium 8.1 mg/dL (8.6-10.3); Creatinine, Serum 1.43 mg/dL (0.67-1.17); Magnesium 2.3 mg/dL (1.9-2.7); Potassium 3.7 mmol/L (3.5-5.0); eGFR CKD-EPI 50.2 (>60)
[2023-06-29 07:25] LABS: ABS Eosinophils 0.1 10^3/uL (0.0-0.5); ABS Lymphocytes 0.4 10^3/uL (1.0-4.8); ABS Monocytes 0.8 10^3/uL (0.0-1.1); ABS Nucleated RBC 0.01 10^3/ul; Eosinophil % 0.8 %; Lymphocyte % 4.2 %; Nucleated Red Blood Cells % 0.2 %/100WBC (0.0-0.8)
[2023-06-29] MEDS: Potassium Chloride LIQUID 20 MEQ/15 ML LIQUID PO ONE (08:10)
[2023-06-29] MEDS: Vancomycin 1,500 MG in NS 0.9% 250 ml 250 ML IVPB SCH (08:12)
[2023-06-29] MEDS: cefTRIAXone 1 gm/50 mL D5W 1 GM/50 ML BAG IV SCH (11:27)
[2023-06-29] MEDS: NS 0.9% 500 ml BAG 500 ML IV ONE (16:44)
[2023-06-30 05:31] LABS: ABS Eosinophils 0.3 10^3/uL (0.0-0.5); ABS Lymphocytes 0.5 10^3/uL (1.0-4.8); ABS Monocytes 0.7 10^3/uL (0.0-1.1); ABS Neutrophils 5.5 10^3/uL (1.5-7.6); ABS Nucleated RBC 0.01 10^3/ul; Eosinophil % 4.9 %; Hematocrit 31.2 % (38-53); Hemoglobin 10.5 g/dL (13.2-16.3); Lymphocyte % 7.2 %; Mean Corpuscular Hemoglobin 29.7 pg (27-33); Mean Corpuscular Hgb Conc 33.8 g/dL (31-36); Mean Corpuscular Volume 87.8 fL (80-97); Mean Platelet Volume 8.1 fL (7.5-11.2); Nucleated Red Blood Cells % 0.1 %/100WBC (0.0-0.8); Platelet Count 135 10^3/uL (150-450); Red Blood Count 3.55 10^6/uL (4.06-5.63)
[2023-06-30 05:48] LABS: Calcium 8.4 mg/dL (8.6-10.3); Creatinine, Serum 1.09 mg/dL (0.67-1.17); Magnesium 2.2 mg/dL (1.9-2.7); Potassium 3.7 mmol/L (3.5-5.0); eGFR CKD-EPI 69.5 (>60)
[2023-06-30] MEDS: Potassium Chlor 20 meq TAB.ER PO ONE (08:05)
[2023-06-30] MEDS: Ferric Gluconate IV 250 MG in NS 0.9% 250 ml 200 ML IVPB ONE (11:31)
[2023-07-01 07:28] LABS: Urine Appearance Clear; Urine Bilirubin Negative (Negative); Urine Blood 1+ (Negative); Urine Color Light-Yellow; Urine Glucose Negative (Negative); Urine Ketones Negative (Negative); Urine Nitrite Negative (Negative); Urine Protein Negative (Negative); Urine Specific Gravity 1.018 (1.002-1.030); Urine Urobilinogen Negative (Negative); Urine pH 5.5 (5.0-8.0)
[2023-07-01 07:54] LABS: Urine Amorphous Crystals Present /HPF (Absent); Urine Bacteria 1+ /HPF (Absent); Urine Red Blood Cell 3+(>10/hpf) /HPF (0-Trace); Urine White Blood Cell 3+(>20/hpf) /HPF (0-Trace)
[2023-07-01 09:22] LABS: Calcium 8.5 mg/dL (8.6-10.3); Creatinine, Serum 0.86 mg/dL (0.67-1.17); Magnesium 2.4 mg/dL (1.9-2.7); Potassium 4.1 mmol/L (3.5-5.0); eGFR CKD-EPI 88.6 (>60)
[2023-07-01] MEDS: Vancomycin Trough Check NOTE FOLLOW UP ONE (09:28)
[2023-07-01] MEDS: Ferric Gluconate IV 250 MG in NS 0.9% 250 ml 200 ML IVPB ONE (11:08)
[2023-07-02 05:34] LABS: ABS Eosinophils 0.4 10^3/uL (0.0-0.5); ABS Lymphocytes 0.7 10^3/uL (1.0-4.8); ABS Monocytes 0.7 10^3/uL (0.0-1.1); ABS Nucleated RBC 0.01 10^3/ul; Hematocrit 30.9 % (38-53); Hemoglobin 10.4 g/dL (13.2-16.3); Lymphocyte % 6.9 %; Mean Corpuscular Hgb Conc 33.7 g/dL (31-36); Mean Corpuscular Volume 88.9 fL (80-97); Mean Platelet Volume 7.3 fL (7.5-11.2); Nucleated Red Blood Cells % 0.1 %/100WBC (0.0-0.8); Platelet Count 222 10^3/uL (150-450); Red Blood Count 3.48 10^6/uL (4.06-5.63); Red Cell Distribution Width 15.2 % (12-17); White Blood Count 9.8 10^3/uL (3.6-10.2)
[2023-07-02 05:53] LABS: Calcium 8.4 mg/dL (8.6-10.3); Creatinine, Serum 0.81 mg/dL (0.67-1.17); Magnesium 2.4 mg/dL (1.9-2.7); Potassium 4.1 mmol/L (3.5-5.0); eGFR CKD-EPI 90.2 (>60)
[2023-07-02 09:44] VITALS: BP 128/57
[2023-07-02 10:05] LABS: Rapid COVID-19 Molecular Undetected (Undetected)
[2023-07-02] MEDS: Ferric Gluconate IV 250 MG in NS 0.9% 250 ml 200 ML IVPB ONE (10:54)
[2023-07-03] MEDS ORDERED: Vancomycin Trough Check NOTE FOLLOW UP ONE (08:30)
== END 2023-07-02 13:30 | DRG 871 ==
LOC: ED 18:46 → SUATTDRO 23:07 → EDHOLD 23:07 → MEDTELE 06-25 00:46
PROVIDERS: ADMIT Internal Medicine; ATTEND Student in an Organized Health Care Education/Training Program

== ENCOUNTER 2023-07-30 04:09 | Inpatient (IN) ==
[2023-07-30 04:48] LABS: INR 1.49 (0.83-1.13)
[2023-07-30] MEDS: Pantoprazole VIAL 40 MG VIAL IV ONE ×2 (04:48→05:32)
[2023-07-30 05:24] LABS: ABS Basophils 0.1 10^3/uL (0.0-0.1); ABS Eosinophils 0.4 10^3/uL (0.0-0.5); ABS Lymphocytes 0.7 10^3/uL (1.0-4.8); ABS Monocytes 0.6 10^3/uL (0.0-1.1); ABS Neutrophils 5.2 10^3/uL (1.5-7.6); ABS Nucleated RBC 0.02 10^3/ul; Eosinophil % 5.1 %; Hematocrit 20.2 % (38-53); Hemoglobin 6.4 g/dL (13.2-16.3); Mean Corpuscular Hgb Conc 31.6 g/dL (31-36); Mean Corpuscular Volume 94.9 fL (80-97); Mean Platelet Volume 7.2 fL (7.5-11.2); Nucleated Red Blood Cells % 0.4 %/100WBC (0.0-0.8); Platelet Count 191 10^3/uL (150-450); Red Blood Count 2.12 10^6/uL (4.06-5.63); Red Cell Distribution Width 18.6 % (12-17); White Blood Count 6.8 10^3/uL (3.6-10.2)
[2023-07-30 05:26] LABS: Albumin 2.7 g/dL (3.2-5.2); Calcium 8.6 mg/dL (8.6-10.3); Creatinine, Serum 0.94 mg/dL (0.67-1.17); Globulin 2.8 g/dL (2-4); Magnesium 2.5 mg/dL (1.9-2.7); Potassium 5.2 mmol/L (3.5-5.0); Total Bilirubin 0.4 mg/dL (0.2-1.0); Total Protein 5.5 g/dL (6.4-8.9)
[2023-07-30] MEDS: Pantoprazole 80 mg in NS BAG 80 MG/250 ML BAG IV SCH (06:31)
[2023-07-30 09:41] LABS: Urine Appearance Clear; Urine Bilirubin Negative (Negative); Urine Blood Negative (Negative); Urine Color Light-Yellow; Urine Glucose Negative (Negative); Urine Ketones Negative (Negative); Urine Nitrite Negative (Negative); Urine Protein Negative (Negative); Urine Specific Gravity 1.014 (1.002-1.030); Urine Urobilinogen Negative (Negative)
[2023-07-30 09:42] LABS: Urine Bacteria Absent /HPF (Absent); Urine Red Blood Cell Trace(0-2/hpf) /HPF (0-Trace); Urine Squamous Epithelial Cell Present /HPF (Absent); Urine White Blood Cell Trace(0-5/hpf) /HPF (0-Trace)
[2023-07-30] MEDS: Furosemide 40 mg/4 ml IV VIAL IV ONE (11:45)
[2023-07-30] MEDS: Ondansetron 4 mg VIAL 2 MG/ML 2 ml VIAL IV PRN (11:45)
[2023-07-30] MEDS ORDERED: Rocuronium 50 mg VIAL 10 mg/ml 5 ml VIAL (50 mg) ONE (13:11)
[2023-07-30] MEDS ORDERED: Dextrose 50% Syringe 50 ml 25 GM/50 ML SYRINGE IV PUSH PRN (13:48)
[2023-07-30 18:04] LABS: Hematocrit 23.9 % (38-53); Hemoglobin 7.7 g/dL (13.2-16.3)
[2023-07-30] MEDS: Benzocaine/Menthol LOZ MT PRN (21:24)
[2023-07-30] MEDS: PEG 3000 GI LAVAGE 1 GALLON PO ONE (21:24)
[2023-07-31 07:46] LABS: ABS Basophils 0.1 10^3/uL (0.0-0.1); ABS Eosinophils 0.9 10^3/uL (0.0-0.5); ABS Lymphocytes 0.7 10^3/uL (1.0-4.8); ABS Monocytes 0.7 10^3/uL (0.0-1.1); ABS Neutrophils 6.3 10^3/uL (1.5-7.6); ABS Nucleated RBC 0.01 10^3/ul; Eosinophil % 10.5 %; Hematocrit 24.3 % (38-53); Hemoglobin 7.9 g/dL (13.2-16.3); Mean Corpuscular Hemoglobin 30.2 pg (27-33); Mean Corpuscular Hgb Conc 32.5 g/dL (31-36); Mean Corpuscular Volume 92.7 fL (80-97); Mean Platelet Volume 7.1 fL (7.5-11.2); Nucleated Red Blood Cells % 0.1 %/100WBC (0.0-0.8); Platelet Count 153 10^3/uL (150-450); Red Blood Count 2.63 10^6/uL (4.06-5.63); Red Cell Distribution Width 17.4 % (12-17); White Blood Count 8.6 10^3/uL (3.6-10.2)
[2023-07-31 08:19] LABS: Calcium 8.2 mg/dL (8.6-10.3); Magnesium 2.4 mg/dL (1.9-2.7); Potassium 4.2 mmol/L (3.5-5.0)
[2023-07-31] MEDS ORDERED: Midazolam 10 mg/10 ml VIAL 1 mg/ml 10 ml VIAL (10 mg) ONE (13:29)
[2023-07-31] MEDS ORDERED: fentaNYL 100 mcg/2 ml 50 MCG/ML VIAL ONE (13:29)
[2023-07-31] MEDS ORDERED: Naloxone 0.4 mg VIAL 0.4 mg/ml 1 ml VIAL IV PUSH PRN (15:36)
[2023-07-31] MEDS ORDERED: Flumazenil 0.5 mg/5 ml 0.1 MG/ML 5 ml VIAL IV PRN (15:36)
[2023-07-31] MEDS: Furosemide 40 mg/4 ml IV VIAL IV SCH (16:17)
[2023-07-31] MEDS: cefTRIAXone 1 gm/50 mL D5W 1 GM/50 ML BAG IV SCH (16:17)
[2023-07-31] MEDS: fentaNYL 100 mcg/2 ml 50 MCG/ML VIAL IV SLOW PU ONE (16:26)
[2023-07-31] MEDS: Ondansetron 4 mg VIAL 2 MG/ML 2 ml VIAL IV ONE (16:26)
[2023-07-31] MEDS: Midazolam 10 mg/10 ml VIAL 1 mg/ml 10 ml VIAL (10 mg) IV SLOW PU ONE (16:26)
[2023-07-31] MEDS: Lidocaine 2% JELLY 6 ML Topical TOPICAL ONE (16:26)
[2023-07-31] MEDS: Lactated Ringers 1000 ml BAG 1,000 ML IV ONE (16:28)
[2023-07-31] MEDS: Azithromycin 500 mg/250 ml NS 500 MG/250 ML BAG IVPB SCH (17:06)
[2023-08-01 06:22] LABS: ABS Basophils 0.1 10^3/uL (0.0-0.1); ABS Eosinophils 0.9 10^3/uL (0.0-0.5); ABS Lymphocytes 0.7 10^3/uL (1.0-4.8); ABS Monocytes 0.7 10^3/uL (0.0-1.1); ABS Neutrophils 4.9 10^3/uL (1.5-7.6); Eosinophil % 11.9 %; Hematocrit 23.4 % (38-53); Hemoglobin 7.8 g/dL (13.2-16.3); Lymphocyte % 9.2 %; Mean Corpuscular Hemoglobin 30.9 pg (27-33); Mean Corpuscular Hgb Conc 33.2 g/dL (31-36); Mean Corpuscular Volume 93.3 fL (80-97); Platelet Count 154 10^3/uL (150-450); Red Blood Count 2.51 10^6/uL (4.06-5.63); Red Cell Distribution Width 17.2 % (12-17); White Blood Count 7.2 10^3/uL (3.6-10.2)
[2023-08-01 06:51] LABS: Calcium 8.4 mg/dL (8.6-10.3); Creatinine, Serum 1.01 mg/dL (0.67-1.17); Magnesium 2.4 mg/dL (1.9-2.7); Potassium 4.1 mmol/L (3.5-5.0); eGFR CKD-EPI 76.1 (>60)
[2023-08-01 12:18] LABS: ABS Basophils 0.1 10^3/uL (0.0-0.1); ABS Eosinophils 0.5 10^3/uL (0.0-0.5); ABS Lymphocytes 0.5 10^3/uL (1.0-4.8); ABS Monocytes 0.5 10^3/uL (0.0-1.1); ABS Neutrophils 4.4 10^3/uL (1.5-7.6); ABS Nucleated RBC 0.01 10^3/ul; Eosinophil % 9.2 %; Hematocrit 23.7 % (38-53); Hemoglobin 7.6 g/dL (13.2-16.3); Lymphocyte % 7.9 %; Mean Corpuscular Hemoglobin 30.2 pg (27-33); Mean Corpuscular Volume 94.1 fL (80-97); Mean Platelet Volume 7.3 fL (7.5-11.2); Nucleated Red Blood Cells % 0.1 %/100WBC (0.0-0.8); Platelet Count 155 10^3/uL (150-450); Red Blood Count 2.51 10^6/uL (4.06-5.63); White Blood Count 5.9 10^3/uL (3.6-10.2)
[2023-08-01 13:19] LABS: Creatinine, Serum 1.13 mg/dL (0.67-1.17); eGFR CKD-EPI 66.5 (>60)
[2023-08-01] MEDS ORDERED: Iron Sucrose 20 MG/ML 5 ML VIAL IV PUSH SCH (14:00)
[2023-08-01] MEDS: Heparin 5000 UNITS/ML 1 mL VIAL IV SCH (15:24)
[2023-08-01] MEDS: Heparin DRIP 25,000 UNITS BAG 25,000 UNITS/250 ML BAG IV SCH (15:27)
[2023-08-01] MEDS: Iron Sucrose 200 MG in NS 0.9% 100 ml IVPB SCH (15:38)
[2023-08-01 21:50] LABS: Hematocrit 24.3 % (38-53); Hemoglobin 7.9 g/dL (13.2-16.3)
[2023-08-02 05:38] LABS: ABS Eosinophils 0.7 10^3/uL (0.0-0.5); ABS Lymphocytes 0.6 10^3/uL (1.0-4.8); ABS Monocytes 0.5 10^3/uL (0.0-1.1); ABS Nucleated RBC 0.01 10^3/ul; Hematocrit 23.1 % (38-53); Hemoglobin 7.5 g/dL (13.2-16.3); Mean Corpuscular Hemoglobin 30.3 pg (27-33); Mean Corpuscular Hgb Conc 32.4 g/dL (31-36); Mean Corpuscular Volume 93.4 fL (80-97); Mean Platelet Volume 7.2 fL (7.5-11.2); Nucleated Red Blood Cells % 0.2 %/100WBC (0.0-0.8); Platelet Count 147 10^3/uL (150-450); Red Blood Count 2.47 10^6/uL (4.06-5.63); Red Cell Distribution Width 17.7 % (12-17); White Blood Count 4.8 10^3/uL (3.6-10.2)
[2023-08-02 13:09] LABS: Hematocrit 24.2 % (38-53); Hemoglobin 7.9 g/dL (13.2-16.3)
[2023-08-03 03:57] LABS: ABS Eosinophils 0.6 10^3/uL (0.0-0.5); ABS Lymphocytes 0.5 10^3/uL (1.0-4.8); ABS Monocytes 0.4 10^3/uL (0.0-1.1); ABS Neutrophils 2.3 10^3/uL (1.5-7.6); ABS Nucleated RBC 0.01 10^3/ul; Hematocrit 23.9 % (38-53); Hemoglobin 7.8 g/dL (13.2-16.3); Lymphocyte % 12.7 %; Mean Corpuscular Hemoglobin 30.2 pg (27-33); Mean Corpuscular Hgb Conc 32.6 g/dL (31-36); Mean Corpuscular Volume 92.6 fL (80-97); Mean Platelet Volume 7.4 fL (7.5-11.2); Nucleated Red Blood Cells % 0.1 %/100WBC (0.0-0.8); Platelet Count 145 10^3/uL (150-450); Red Blood Count 2.57 10^6/uL (4.06-5.63); Red Cell Distribution Width 17.5 % (12-17); White Blood Count 3.9 10^3/uL (3.6-10.2)
[2023-08-03 04:28] LABS: Creatinine, Serum 1.07 mg/dL (0.67-1.17); Magnesium 2.2 mg/dL (1.9-2.7); Potassium 2.9 mmol/L (3.5-5.0)
[2023-08-03 04:29] LABS: Albumin 2.9 g/dL (3.2-5.2); Globulin 2.8 g/dL (2-4); Total Bilirubin 0.4 mg/dL (0.2-1.0); Total Protein 5.7 g/dL (6.4-8.9)
[2023-08-03] MEDS: Potassium Chlor 20 meq TAB.ER PO ONE (08:46)
[2023-08-03] MEDS: Magnesium Sulfate IV 1GM/100ML 1 GM/100 ML BAG IV ONE (08:47)
[2023-08-03] MEDS: KCL 20 MEQ/100 ML IVPREMIX 20 MEQ/100 ML BAG IV SCH (10:12)
[2023-08-03] MEDS ORDERED: Vancomycin 750 MG in NS 0.9% 250 ml 250 ML IVPB SCH (18:00)
[2023-08-04 06:40] LABS: ABS Eosinophils 0.5 10^3/uL (0.0-0.5); ABS Lymphocytes 0.4 10^3/uL (1.0-4.8); ABS Monocytes 0.4 10^3/uL (0.0-1.1); ABS Neutrophils 1.9 10^3/uL (1.5-7.6); Eosinophil % 15.4 %; Hematocrit 25.3 % (38-53); Hemoglobin 8.1 g/dL (13.2-16.3); Lymphocyte % 12.1 %; Mean Corpuscular Volume 93.7 fL (80-97); Mean Platelet Volume 7.4 fL (7.5-11.2); Nucleated Red Blood Cells % 0.1 %/100WBC (0.0-0.8); Platelet Count 140 10^3/uL (150-450); Red Cell Distribution Width 17.6 % (12-17); White Blood Count 3.2 10^3/uL (3.6-10.2)
[2023-08-04 06:59] LABS: Albumin 3.1 g/dL (3.2-5.2); Albumin/Globulin Ratio 1.1 (1-3); Calcium 8.5 mg/dL (8.6-10.3); Globulin 2.9 g/dL (2-4); Magnesium 2.4 mg/dL (1.9-2.7); Potassium 3.2 mmol/L (3.5-5.0); Total Bilirubin 0.4 mg/dL (0.2-1.0)
[2023-08-04] MEDS: Potassium Chlor 20 meq TAB.ER PO SCH (09:58)
[2023-08-04] MEDS: Ferric Gluconate IV 250 MG in NS 0.9% 250 ml 200 ML IVPB ONE (12:30)
[2023-08-04] MEDS: Furosemide 40 mg/4 ml IV VIAL IV ONE (14:05)
[2023-08-05 07:08] LABS: ABS Eosinophils 0.4 10^3/uL (0.0-0.5); ABS Lymphocytes 0.4 10^3/uL (1.0-4.8); ABS Monocytes 0.4 10^3/uL (0.0-1.1); ABS Neutrophils 1.9 10^3/uL (1.5-7.6); Eosinophil % 13.2 %; Hematocrit 24.1 % (38-53); Hemoglobin 7.8 g/dL (13.2-16.3); Lymphocyte % 12.2 %; Mean Corpuscular Hemoglobin 30.2 pg (27-33); Mean Corpuscular Hgb Conc 32.4 g/dL (31-36); Mean Corpuscular Volume 93.2 fL (80-97); Mean Platelet Volume 7.5 fL (7.5-11.2); Nucleated Red Blood Cells % 0.1 %/100WBC (0.0-0.8); Platelet Count 143 10^3/uL (150-450); Red Blood Count 2.59 10^6/uL (4.06-5.63); Red Cell Distribution Width 17.3 % (12-17); White Blood Count 3.1 10^3/uL (3.6-10.2)
[2023-08-05 07:35] LABS: Calcium 8.5 mg/dL (8.6-10.3); Creatinine, Serum 0.97 mg/dL (0.67-1.17); Magnesium 2.2 mg/dL (1.9-2.7); Potassium 3.8 mmol/L (3.5-5.0); eGFR CKD-EPI 79.9 (>60)
[2023-08-05] MEDS: Potassium Chlor 20 meq TAB.ER PO SCH (09:39)
[2023-08-07 06:15] LABS: ABS Eosinophils 0.5 10^3/uL (0.0-0.5); ABS Lymphocytes 0.5 10^3/uL (1.0-4.8); ABS Monocytes 0.4 10^3/uL (0.0-1.1); ABS Neutrophils 1.7 10^3/uL (1.5-7.6); ABS Nucleated RBC 0.01 10^3/ul; Eosinophil % 17.5 %; Hematocrit 25.4 % (38-53); Hemoglobin 8.2 g/dL (13.2-16.3); Lymphocyte % 15.2 %; Mean Corpuscular Hemoglobin 30.1 pg (27-33); Mean Corpuscular Hgb Conc 32.3 g/dL (31-36); Mean Corpuscular Volume 93.2 fL (80-97); Mean Platelet Volume 7.1 fL (7.5-11.2); Nucleated Red Blood Cells % 0.2 %/100WBC (0.0-0.8); Platelet Count 146 10^3/uL (150-450); Red Blood Count 2.72 10^6/uL (4.06-5.63); Red Cell Distribution Width 16.6 % (12-17); White Blood Count 3.1 10^3/uL (3.6-10.2)
[2023-08-07 06:39] LABS: Creatinine, Serum 0.94 mg/dL (0.67-1.17); Magnesium 2.2 mg/dL (1.9-2.7)
[2023-08-07] MEDS: Heparin 2 UNITS/ML 1000 mls 1,000 ML IV ONE (07:30)
[2023-08-07 10:37] LABS: Rapid COVID-19 Molecular Undetected (Undetected)
[2023-08-07 10:39] VITALS: BP 125/75
== END 2023-08-07 13:30 | DRG 368 ==
LOC: ED 04:09 → EDHOLD 04:09 → SUATTDRO 05:39 → AA 12:41 → SUATTDRO 13:11 → MEDTELE 17:11
PROVIDERS: ADMIT Internal Medicine; ATTEND Student in an Organized Health Care Education/Training Program
PROC: O.GIEGD (2023-07-30 12:35)